=== PATIENT | female | born 1965 | race Caucasian/White ===

== ENCOUNTER → 2020-03-19 10:56 | Outpatient (BNVA) | payer BC, SELFPAY | PROVIDERS: Visit Provider Surgery | DX: Z76.89 Persons encountering health services in other specified circumstances (principal) ==

== ENCOUNTER 2020-04-07 07:02 | Outpatient (REF) | payer BC, SELFPAY ==
[2020-04-02 17:42] VITALS: BMI 28.3
--- NOTE | 2020-04-04 08:39 | HO.ANESPROP2 ---
Documented by User: Karoline Licea 04/04/20 08:40 HPI - Anesthesia Eval Consult details Narrative: 55yo F for L breast needle localization PMFSH Past Medical History Medical History Anxiety Eczema Migraine Obesity Family History Family History Father No problems noted. Mother No problems noted. Brother No problems noted. Brother No problems noted. Brother No problems noted. Daughter No problems noted. Daughter No problems noted. Surgical History Surgical History H/O elbow surgery H/O shoulder surgery Hx laparoscopic cholecystectomy (2003) Hx of section (2003) Hx of laparoscopic gastric banding Hx of umbilical hernia repair (2005) S/P laparoscopic sleeve gastrectomy () S/P TORIBIO (total abdominal hysterectomy) Social History Social History Alcohol intake: current Alcohol intake frequency: holidays/special occasions only Smoking Status: Never smoker Second Hand Smoke Exposure: No Use of substances other than those prescribed or required for medical reasons: No Advance Directives: No Advance Directives Information Provided: No Advance Directives on File: No Recently lost weight without trying: No Meds Allergies Allergy/AdvReac Type Severity Reaction Status Date / Time Iodinated Contrast Media Allergy Severe DIFF Unverified 02/28/20 15:03 [IV CONTRAST] BREATHING/HIVES Contrast Allergy PreMed Pack Allergy Mild hives Uncoded 02/01/20 00:00 STATINS AdvReac Unknown myalgias Uncoded 02/01/20 00:00 Home Medications Medication Instructions Recorded Confirmed Type clobetasol 0.05 % scalp solution 1 applic TOPICAL BEDTIME 03/13/20 04/02/20 History pantoprazole 40 mg tablet,delayed 40 mg PO DAILY 03/13/20 04/02/20 History release Exam Exam Date and Time: April 04, 2020 0839 Height,Weight and Vital Signs: Height 5 ft 3 in Weight 72.575 kg Pertinent Lab Results Pertinent Lab Results: Laboratory Tests 02/06/20 02/06/20 04:09 04:09 WBC 11.5 H Hgb 12.4 Hct 37.4 Plt Count 261 Sodium 137 Potassium 4.9 Chloride 105 BUN 10 Creatinine 0.77 Assessment and Plan Assessment Anesthesia Assessment: Chart Reviewed Documented by User: Nathalia Bello 04/07/20 09:32 PMFSH Past Medical History Medical History Anxiety Eczema Migraine Obesity Family History Family History Father No problems noted. Mother No problems noted. Brother No problems noted. Brother No problems noted. Brother No problems noted. Daughter No problems noted. Daughter No problems noted. Surgical History Surgical History H/O elbow surgery H/O shoulder surgery Hx laparoscopic cholecystectomy (2003) Hx of section (2003) Hx of laparoscopic gastric banding Hx of umbilical hernia repair (2005) S/P laparoscopic sleeve gastrectomy (~2019) S/P TORIBIO (total abdominal hysterectomy) Social History Social History Alcohol intake: current Alcohol intake frequency: holidays/special occasions only Smoking Status: Never smoker Second Hand Smoke Exposure: No Use of substances other than those prescribed or required for medical reasons: No Advance Directives: No Advance Directives Information Provided: No Advance Directives on File: No Recently lost weight without trying: No Meds Allergies Allergy/AdvReac Type Severity Reaction Status Date / Time Iodinated Contrast Media Allergy Severe DIFF Unverified 02/28/20 15:03 [IV CONTRAST] BREATHING/HIVES Contrast Allergy PreMed Pack Allergy Mild hives Uncoded 02/01/20 00:00 STATINS AdvReac Unknown myalgias Uncoded 02/01/20 00:00 Home Medications Medication Instructions Recorded Confirmed Type clobetasol 0.05 % scalp solution 1 applic TOPICAL BEDTIME 03/13/20 04/02/20 History pantoprazole 40 mg tablet,delayed 40 mg PO DAILY 03/13/20 04/02/20 History release Exam Airway Mallampati Class: II TM Dist: >3cm Neck ROM: Full Assessment and Plan Assessment Anesthesia Assessment: Anesthesia Plan Discussed and Chart Reviewed Final Anesthetic Review NPO: Yes ASA Class: II Final Preanesthetic Review: No Changes in Pt Med Stat, Meds/Allgs Chart Reviewed, Consent Obtained/Reviewed and Anes Risks/Benef Reviewed Patient Risk: Low Procedure Risk: Low Assessment/Block/Sedation in SS: Assess/Block/Sedation-SS Anesthetic Plan Anesthetic Plan: MAC: Disposition: Standard PACU
[2020-04-07 07:34] VITALS: BP 109/65; PULSE 58; RESP 18; TEMP 36.7; O2SAT 96
--- NOTE | 2020-04-07 07:50 | MM_ITS ---
EXAMINATION: MM MAMMOGRAM GUIDED NEEDLE LOCALIZATION BREAST, LEFT MM NEEDLE LOCALIZATION SPECIMEN FROM THE LEFT BREAST CLINICAL INFORMATION: Intraductal papilloma. Fragments with regions of small radial scar. COMPARISON: March 12, 2020 and studies dating back to October 23, 2010 TECHNIQUE NEEDLE LOC: Proper informed consent is obtained from the patient after discussion of the procedure, potential risks and complications, and alternatives including declining the procedure today. Patient was given an opportunity for questions. The patient appeared to understand. The patient consented to the procedure and signed the consent form. GUIDANCE: Digital mammography. APPROACH: Medial. TARGET: Clip. ANESTHESIA: lidocaine 1%: 3 mL. LOCALIZATION MARKER: [place] [employer]. 5 cm in length The skin is prepped and local anesthesia administered. The needle is positioned and position assessed with mammography. The wire is hooked into position. [place] needle protector placed. The patient tolerated the procedure well and had no immediate complication. TECHNIQUE SPECIMEN RADIOGRAPH: Imaging of the excised specimen is performed using digital mammography in 1 view. FINDINGS SPECIMEN RADIOGRAPH: The specimen shows the needle and hookwire are delivered intact. Clip is within the sample.. Results were called to Dr. Dallin Marlow in the operating room at the time of imaging. MM/MM needle loc RT IMPRESSION: 1. Status post left breast needle localization with wire hooked into position. 2. Post operative specimen radiograph obtained.
--- NOTE | 2020-04-07 08:56 | MHC.SHP ---
Pre-Procedural Eval Section A The patient is an INPATIENT: No Changes since office visit: Yes Patient answered all questions; No Cold of Flu in the past 2 weeks, No New Medical Problems and No Changes in Medication The History & Physical has been completed within 30 days and I have reviewed it.: Yes Section B Chief Complaint: LT BR NEEDLE LOCALIZATION Allergies: Allergies Allergy/AdvReac Type Severity Reaction Status Date / Time Iodinated Contrast Media Allergy Severe DIFF Unverified 02/28/20 15:03 [IV CONTRAST] BREATHING/HIVES Contrast Allergy PreMed Pack Allergy Mild hives Uncoded 02/01/20 00:00 STATINS AdvReac Unknown myalgias Uncoded 02/01/20 00:00 Plan Diagnosis/Plan: Unchanged Patient has been examined and remains a candidate for the planned procedure
--- NOTE | 2020-04-07 09:32 | HO.ANESPROP2 ---
[facility] Past Medical History Medical History Anxiety Eczema Migraine Obesity Family History Family History Father No problems noted. Mother No problems noted. Brother No problems noted. Brother No problems noted. Brother No problems noted. Daughter No problems noted. Daughter No problems noted. Surgical History Surgical History H/O elbow surgery H/O shoulder surgery Hx laparoscopic cholecystectomy (2003) Hx of section (2003) Hx of laparoscopic gastric banding Hx of umbilical hernia repair (2005) S/P laparoscopic sleeve gastrectomy () S/P TORIBIO (total abdominal hysterectomy) Social History Social History Alcohol intake: current Alcohol intake frequency: holidays/special occasions only Smoking Status: Never smoker Second Hand Smoke Exposure: No Use of substances other than those prescribed or required for medical reasons: No Advance Directives: No Advance Directives Information Provided: No Advance Directives on File: No Recently lost weight without trying: No Meds Allergies Allergy/AdvReac Type Severity Reaction Status Date / Time Iodinated Contrast Media Allergy Severe DIFF Unverified 02/28/20 15:03 [IV CONTRAST] BREATHING/HIVES Contrast Allergy PreMed Pack Allergy Mild hives Uncoded 02/01/20 00:00 STATINS AdvReac Unknown myalgias Uncoded 02/01/20 00:00 Home Medications Medication Instructions Recorded Confirmed Type clobetasol 0.05 % scalp solution 1 applic TOPICAL BEDTIME 03/13/20 04/02/20 History pantoprazole 40 mg tablet,delayed 40 mg PO DAILY 03/13/20 04/02/20 History release Exam Exam Date and Time: April 07, 2020 0932 Height,Weight and Vital Signs: Height 5 ft 3 in Weight 72.575 kg Last Vital Signs Temp 98.1 F 04/07/20 07:34 Pulse 58 04/07/20 07:34 Resp 18 04/07/20 07:34 BP 109/65 04/07/20 07:34 Pulse Ox 96 04/07/20 07:34 Assessment and Plan Assessment Anesthesia Assessment: Anesthesia Plan Discussed and Chart Reviewed Final Anesthetic Review NPO: Yes ASA Class: II Final Preanesthetic Review: No Changes in Pt Med Stat, Meds/Allgs Chart Reviewed, Consent Obtained/Reviewed and Anes Risks/Benef Reviewed Patient Risk: Low Procedure Risk: Low Assessment/Block/Sedation in SS: Assess/Block/Sedation-SS Anesthetic Plan Anesthetic Plan: MAC: Disposition: Standard PACU
--- NOTE | 2020-04-07 10:15 | P.BOP_ITS ---
Brief Operative Note Date of procedure: 04/07/20 Pre-op diagnosis: Intraductal papilloma, ADH left breast Post-op diagnosis: same Procedure: Left breast lumpectomy with needle localization Implants: None Surgeon: Dallin Marlow MD Anesthesia: MAC Manager Of Compliance: Jodie Bone Estimated blood loss (mL): 10 Pathology: other (Left breast lumpectomy) Condition: stable Disposition: PACU
[2020-04-07 10:20] VITALS: BP 105/57; PULSE 48; RESP 18; TEMP 36.6; O2SAT 98
[2020-04-07 10:35] VITALS: BP 109/59; PULSE 49; RESP 18; O2SAT 100
[2020-04-07 10:45] VITALS: BP 116/56; PULSE 46; RESP 16; O2SAT 100
--- NOTE | 2020-04-08 09:29 | P.OP_ITS ---
Operative Note Operative Note Narrative: Date of procedure: 04/07/20 Pre-op diagnosis: Intraductal papilloma, ADH left breast Post-op diagnosis: same Procedure: Left breast lumpectomy with needle localization Indication: the patient is a 55-year-old female presenting with a recent mammogram which revealed an abnormal density of the left breast. Recent radiologic guided core biopsy revealed it area of intraductal papilloma and ADH. She presents today for wider excision to assure complete removal. Findings: Specimen x-ray confirmed the localizing needle and marking clip within the specimen. Immediate gross pathology confirmed biopsy cavity within the specimen as well. Operative details: The patient was brought to the OR placed in a supine position. After administering light sedation the patient's left breast was prepped with ChloraPrep and draped in a sterile fashion. A surgical time-out w as called and consent confirmed. The patient received preoperative antibiotics. Local anesthesia consisting of a combination of 1% lidocaine with 0.75% Sensorcaine with epinephrine was then infiltrated around the localizing needle in the upper inner quadrant. A radial incision was made to include the insertion site of the localizing needle. The incision was carried out through subcutaneous tissue. Superior and inferior skin flaps were then created with electrocautery. A core of tissue surrounding the localizing needle was then obtained. Excision was continued down to the pectoralis fascia period lesion was shaved off the pectoralis fascia. Specimen was sent to Radiology for Re ray, and then to pathology for gross examination. After confirming an adequate specimen the wounds were irrigated with saline solution and suctioned dry. Wounds were again checked for hemostasis. Deep breast tissue was closed using interrupted 3 0 Polysorb sutures. Dermis was reapproximated using interrupted 3 0 Polysorb sutures. Skin was then closed using a running subcuticular 4 0 Polysorb suture. Steri-Strips 2 x 2 gauze and Tegaderm were then applied. The patient tolerated the procedure well. Sponge, instrument, and needle counts reported as correct. She was transferred to PACU in stable condition. Implants: None Surgeon: Dallin Marlow MD Anesthesia: MAC Deoiling Machine Operator: Jodie Bone Estimated blood loss (mL): 10 Pathology: other (Left breast lumpectomy) Condition: stable Disposition: PACU
== END 2020-04-07 11:25 | disposition home or self-care (01) ==
LOC: HO.SSS 07:02
PROVIDERS: Visit Provider Surgery
PROC: (CPT 19301; principal; 2020-04-07 09:10)
DX: N60.92 Unspecified benign mammary dysplasia of left breast (principal); N60.42 Mammary duct ectasia of left breast; N60.12 Diffuse cystic mastopathy of left breast; Z91.041 Radiographic dye allergy status; Z91.09 Other allergy status, other than to drugs and biological substances
CPT/HCPCS: 19301; 19281; 88307; 88329; A4648; J0690; J2250; J2405; J3010

== ENCOUNTER 2020-04-09 10:25 | Outpatient (REF) | payer BC, SELFPAY ==
--- NOTE | 2020-04-09 10:44 | XR_ITS ---
EXAMINATION: XR LEFT SHOULDER. CLINICAL INFORMATION: Pain left shoulder COMPARISON: None TECHNIQUE: 3 views of the left shoulder. FINDINGS: There is loss of glenohumeral joint space and periarticular spurring. No visible fracture or dislocation seen. There is soft tissue calcification along the insertion site of the rotator cuff suggestive of calcific tendinitis. There are 3 radiopaque small density seen in the left greater tuberosity region question bone islands. XR/XR shoulder LT min 2V IMPRESSION: Likely left rotator cuff tendinitis.
== END 2020-04-09 10:26 | disposition home or self-care (01) ==
LOC: HO.XRAY 10:25
PROVIDERS: Visit Provider Orthopaedic Surgery
DX: M75.42 Impingement syndrome of left shoulder (principal)
CPT/HCPCS: 20610; 73030; J1040

== ENCOUNTER → 2020-04-11 08:15 | Outpatient (BNVA) | payer BC, SELFPAY | PROVIDERS: Visit Provider Surgery | DX: Z76.89 Persons encountering health services in other specified circumstances (principal) ==

== ENCOUNTER → 2020-04-15 11:33 | Outpatient (BNVA) | payer SELFPAY | PROVIDERS: Visit Provider Physician Assistant | DX: Z76.89 Persons encountering health services in other specified circumstances (principal) ==

== ENCOUNTER → 2020-04-22 11:51 | Outpatient (BNVA) | payer SELFPAY | PROVIDERS: Visit Provider Surgery | DX: D24.2 Benign neoplasm of left breast (principal); Z98.890 Other specified postprocedural states | CPT/HCPCS: 99212 ==

== ENCOUNTER → 2020-05-14 09:36 | Outpatient (BNVA) | payer SELFPAY | PROVIDERS: Visit Provider Surgery | DX: Z76.89 Persons encountering health services in other specified circumstances (principal) ==

== ENCOUNTER → 2020-06-10 08:33 | Outpatient (BNVA) | payer SELFPAY | PROVIDERS: Visit Provider Physician Assistant | DX: Z76.89 Persons encountering health services in other specified circumstances (principal) ==

== ENCOUNTER 2020-06-11 10:25 | Outpatient (REF) | payer BC, SELFPAY ==
[2020-06-11 11:59] LABS: MANUAL DIFF FLAG NO
[2020-06-11 12:02] LABS: Basophils Percent Auto 0.5 % (0-2); Eosinophils Absolute Auto 0.1 X10*3/uL (0.0-0.4); Eosinophils Percent Auto 1.2 % (0-4); Hemoglobin 13.5 g/dl (12.0-16.0); Imm Gran Abs Auto 0.01 X10*3/uL (0.00-0.03); Imm Gran Pct Auto 0.2 % (0.0-0.4); Lymphocytes Absolute Auto 2.5 X10*3/uL (1.2-4.9); Lymphocytes Percent Auto 41.2 % (20-40); Mean Corpuscular HGB Conc 32.9 g/dl (31.0-35.0); Mean Corpuscular Hemoglobin 30.6 pg (27.0-33.0); Mean Platelet Volume 10.6 fL (9.4-12.3); Monocytes Absolute Auto 0.4 X10*3/uL (0.1-1.2); Monocytes Percent Auto 5.8 % (2-11); Neutrophils Absolute Auto 3.1 X10*3/uL (2.0-8.3); Neutrophils Percent Auto 51.1 % (45-73); Platelet Count 277 X10*3/uL (160-400); Red Blood Count 4.41 X10*6/uL (4.20-5.50); Red Cell Distribution Width 14.6 % (11.0-16.0); White Blood Count 6.1 X10*3/uL (4.8-10.8)
[2020-06-11 12:36] LABS: Alanine Aminotransferase 30 U/L (0-31); Albumin Level 4.4 g/dL (3.5-5.0); Alkaline Phosphatase 70 U/L (39-117); Anion Gap 12 (12-20); Aspartate Amino Transferase 31 U/L (5-31); Bilirubin Total 0.7 mg/dL (0.0-1.0); Blood Urea Nitrogen 16 mg/dL (9-16); C Reactive Protein 0.28 mg/dL (< or = 0.50); Calcium 9.6 mg/dL (8.4-10.2); Carbon Dioxide 28 mmol/L (22-29); Chloride 105 mmol/L (96-108); Cholesterol 211 mg/dL; Estimated Glomerular Filt Rate > 60; Glucose Fasting 93 mg/dL (60-99); HDL Cholesterol 59 mg/dL; Iron 109 mcg/dL (30-160); LDL Cholesterol Calculated 138 mg/dl; Percent Iron Saturation 33 % (15-50); Potassium 4.1 mmol/l (3.3-5.1); Sodium 141 mmol/L (135-145); Total Iron Binding Capacity 333 mcg/dL (228-428); Triglycerides 71 mg/dL; Unsaturated Iron Binding 224 ug/dL
[2020-06-11 12:47] LABS: Estimated Average Glucose 105 mg/dL; Hemoglobin A1c % 5.3 %
[2020-06-11 13:02] LABS: Ferritin 41 ng/mL (10-250); TSH reflex Free T4 0.74 mIU/mL (0.32-4.0); Vitamin D 25-OH Total 66.6 ng/mL (>30)
[2020-06-11 13:41] LABS: Folate 18.1 ng/mL (> or = 4.0); Vitamin B12 832 pg/mL (200-900)
[2020-06-12 12:52] LABS: Insulin Level Total 3.3 uIU/mL
[2020-06-12 17:57] LABS: Calcium (PTHI) 9.6 mg/dL (8.6-10.4); PTHI 61 pg/mL (14-64)
[2020-06-15 11:12] LABS: Vitamin B1 23 nmol/L (8-30)
[2020-06-16 09:27] LABS: Zinc 47 mcg/dL (60-130)
[2020-06-18 13:07] LABS: Vitamin A 37 mcg/dL (38-98)
== END 2020-06-11 10:26 | disposition home or self-care (01) ==
LOC: HO.LAB 10:25
PROVIDERS: Visit Provider Physician Assistant
DX: E66.3 Overweight (principal); K91.2 Postsurgical malabsorption, not elsewhere classified; Z98.84 Bariatric surgery status; Z90.3 Acquired absence of stomach [part of]
CPT/HCPCS: 36415; 80053; 80061; 82306; 82607; 82728; 82746; 83036; 83525; 83540; 83970; 84425; 84443; 84590; 84630; 85025; 86140

== ENCOUNTER → 2020-06-17 09:13 | Outpatient (BNVA) | payer BC, SELFPAY | PROVIDERS: Visit Provider Dietitian, Registered | DX: Z76.89 Persons encountering health services in other specified circumstances (principal) ==

== ENCOUNTER → 2020-07-15 11:24 | Outpatient (BNVA) | payer BC, SELFPAY | PROVIDERS: Visit Provider Dietitian, Registered ==

== ENCOUNTER → 2020-09-23 08:23 | Outpatient (BNVA) | payer BC, SELFPAY | PROVIDERS: PCP Internal Medicine; Visit Provider Dietitian, Registered ==

== ENCOUNTER → 2020-11-25 14:52 | Outpatient (BNVA) | payer BC, SELFPAY | PROVIDERS: PCP Internal Medicine; Referring Provider Internal Medicine; Visit Provider Physician Assistant ==

== ENCOUNTER 2020-12-11 08:18 | Outpatient (REF) | payer BC, SELFPAY ==
[2020-12-11 10:08] LABS: MANUAL DIFF FLAG NO
[2020-12-11 10:19] LABS: Basophils Percent Auto 0.6 % (0-2); Eosinophils Absolute Auto 0.1 X10*3/uL (0.0-0.4); Eosinophils Percent Auto 1.3 % (0-4); Hematocrit 38.9 % (37-47); Hemoglobin 12.8 g/dl (12.0-16.0); Imm Gran Abs Auto 0.01 X10*3/uL (0.00-0.03); Imm Gran Pct Auto 0.2 % (0.0-0.4); Lymphocytes Absolute Auto 2.3 X10*3/uL (1.2-4.9); Lymphocytes Percent Auto 44.1 % (20-40); Mean Corpuscular HGB Conc 32.9 g/dl (31.0-35.0); Mean Corpuscular Hemoglobin 30.5 pg (27.0-33.0); Mean Corpuscular Volume 92.6 fL (80-98); Mean Platelet Volume 10.2 fL (9.4-12.3); Monocytes Absolute Auto 0.3 X10*3/uL (0.1-1.2); Monocytes Percent Auto 6.1 % (2-11); Neutrophils Absolute Auto 2.5 X10*3/uL (2.0-8.3); Neutrophils Percent Auto 47.7 % (45-73); Platelet Count 253 X10*3/uL (160-400); Red Cell Distribution Width 13.2 % (11.0-16.0); White Blood Count 5.2 X10*3/uL (4.8-10.8)
[2020-12-11 10:54] LABS: Alanine Aminotransferase 29 U/L (0-31); Alkaline Phosphatase 73 U/L (39-117); Anion Gap 9 (12-20); Aspartate Amino Transferase 28 U/L (5-31); Bilirubin Total 0.7 mg/dL (0.0-1.0); Blood Urea Nitrogen 17 mg/dL (9-16); C Reactive Protein 0.09 mg/dL (< or = 0.50); Calcium 9.6 mg/dL (8.4-10.2); Carbon Dioxide 31 mmol/L (22-29); Chloride 106 mmol/L (96-108); Cholesterol 181 mg/dL; Estimated Glomerular Filt Rate > 60; Glucose Fasting 94 mg/dL (60-99); HDL Cholesterol 59 mg/dL; Iron 97 mcg/dL (30-160); LDL Cholesterol Calculated 111 mg/dl; Percent Iron Saturation 33 % (15-50); Potassium 4.7 mmol/L (3.3-5.1); Sodium 141 mmol/L (135-145); Total Iron Binding Capacity 295 mcg/dL (228-428); Total Protein 6.4 g/dL (6.5-8.0); Triglycerides 55 mg/dL; Unsaturated Iron Binding 198 ug/dL
[2020-12-11 10:56] LABS: Ferritin 41 ng/mL (10-250); TSH reflex Free T4 0.58 uIU/mL (0.32-4.0); Vitamin D 25-OH Total 60.2 ng/mL (>30)
[2020-12-11 11:02] LABS: Estimated Average Glucose 105 mg/dL; Hemoglobin A1c % 5.3 %
[2020-12-11 11:27] LABS: Folate > 20.0 ng/mL (> or = 4.0); Vitamin B12 1020 pg/mL (200-900)
[2020-12-12 09:07] LABS: Insulin Level Total 2.8 uIU/mL
[2020-12-12 13:36] LABS: Calcium (PTHI) 9.5 mg/dL (8.6-10.4); PTHI 35 pg/mL (14-64)
[2020-12-16 15:11] LABS: Zinc 70 mcg/dL (60-130)
[2020-12-16 15:37] LABS: Vitamin B1 23 nmol/L (8-30)
[2020-12-17 11:47] LABS: Vitamin A 43 mcg/dL (38-98)
== END 2020-12-11 08:19 | disposition home or self-care (01) ==
LOC: HO.LAB 08:18
PROVIDERS: PCP Internal Medicine; Visit Provider Physician Assistant
DX: E66.01 Morbid (severe) obesity due to excess calories (principal); Z98.84 Bariatric surgery status
CPT/HCPCS: 36415; 80053; 80061; 82306; 82607; 82728; 82746; 83036; 83525; 83540; 83970; 84425; 84443; 84590; 84630; 85025; 86140

== ENCOUNTER 2021-01-19 08:33 | Outpatient (REF) | payer BC, SELFPAY ==
--- NOTE | ~2021-01-19 | MM_ITS ---
EXAMINATION: MM SCREENING DIGITAL BREAST TOMOSYNTHESIS, BILATERAL CLINICAL INFORMATION: Screening. Asymptomatic. Status post excision intraductal papilloma anterior left breast 04/07/2020. The lifetime risk of breast cancer based on the Tyrer-Cuzick Model is 9%. COMPARISON: Mammography: Localization 04/07/2020, stereotactic biopsy 03/12/2020, mammography 02/25/2020, 01/14/2020, 12/21/2016. TECHNIQUE: Digital breast tomosynthesis is performed in both the craniocaudal and mediolateral oblique views along with computer-aided detection (CAD). Synthesized 2D images are generated from the tomosynthesis. Left views obtained with scar marker. FINDINGS: There are scattered areas of fibroglandular density (ACR BI-RADS breast composition Category b). There is minor scarring anterior medial left breast consistent with the excisional biopsy. Neither breast shows significant mass or architectural abnormality or abnormal calcifications. The axilla are unremarkable. No significant changes. MM/MM tomosynthesis screening BI IMPRESSION: No mammographic evidence of malignancy. ASSESSMENT: BI-RADS 2: Benign RECOMMENDATION: Routine annual mammography screening. This patient's information was entered into a reminder system with a target due date for their next mammogram.
== END 2021-01-19 08:34 | disposition home or self-care (01) ==
LOC: HO.MAMMO 08:33
PROVIDERS: PCP Internal Medicine; Visit Provider Internal Medicine
DX: Z12.31 Encounter for screening mammogram for malignant neoplasm of breast (principal)
CPT/HCPCS: 77063; 77067

== ENCOUNTER → 2021-01-20 10:05 | Outpatient (BNVA) | payer BC, SELFPAY | PROVIDERS: PCP Internal Medicine; Referring Provider Internal Medicine; Visit Provider Physician Assistant ==

== ENCOUNTER → 2021-04-28 15:00 | Outpatient (BNVA) | payer BC, SELFPAY | PROVIDERS: PCP Internal Medicine; Referring Provider Internal Medicine; Visit Provider Physician Assistant Surgical | DX: Z98.84 Bariatric surgery status (principal); M79.3 Panniculitis, unspecified ==

== ENCOUNTER → 2021-05-28 14:46 | Outpatient (BNVA) | payer BC, SELFPAY | PROVIDERS: PCP Internal Medicine; Visit Provider Surgery Vascular Surgery ==

== ENCOUNTER → 2021-06-08 07:38 | Outpatient (BNVA) | payer BC, SELFPAY | PROVIDERS: PCP Internal Medicine; Visit Provider Surgery ==

== ENCOUNTER 2021-06-15 07:50 | Outpatient (REF) | payer BC, SELFPAY ==
[2021-06-15 08:51] LABS: COVID-19 Test Positive (Negative); IDNOW Serial# 55D5AD1C
== END 2021-06-15 07:51 | disposition home or self-care (01) ==
LOC: HO.LAB 07:50
PROVIDERS: Visit Provider Internal Medicine
DX: Z20.822 Contact with and (suspected) exposure to COVID-19 (principal)
CPT/HCPCS: 36415; 87635; C9803

== ENCOUNTER 2021-06-15 08:52 | Outpatient (REF) | payer BC, SELFPAY ==
[2021-06-15 09:27] LABS: MANUAL DIFF FLAG NO
[2021-06-15 10:05] LABS: Basophils Percent Auto 0.5 % (0-2); Eosinophils Absolute Auto 0.1 X10*3/uL (0.0-0.4); Eosinophils Percent Auto 0.9 % (0-4); Hematocrit 42.9 % (37.0-47.0); Hemoglobin 13.9 g/dl (12.0-16.0); Imm Gran Abs Auto 0.02 X10*3/uL (0.00-0.03); Imm Gran Pct Auto 0.4 % (0.0-0.4); Lymphocytes Absolute Auto 1.6 X10*3/uL (1.2-4.9); Lymphocytes Percent Auto 28.8 % (20-40); Mean Corpuscular HGB Conc 32.4 g/dl (31.0-35.0); Mean Corpuscular Volume 92.5 fL (80.0-98.0); Mean Platelet Volume 9.9 fL (9.4-12.3); Monocytes Absolute Auto 0.6 X10*3/uL (0.1-1.2); Neutrophils Absolute Auto 3.3 x10*3/uL (2.0-8.3); Neutrophils Percent Auto 59.4 % (45-73); Platelet Count 254 X10*3/uL (160-400); Red Blood Count 4.64 X10*6/uL (4.20-5.50); Red Cell Distribution Width 12.6 % (11.0-16.0); White Blood Count 5.5 X10*3/uL (4.8-10.8)
[2021-06-15 10:09] LABS: INTERNATIONAL NORM RATIO 1.1 (0.9-1.1); Prothrombin Time 12.8 SEC (9.9-13.0)
[2021-06-15 10:11] LABS: Partial Thromboplastin Time 34.2 SEC (24.1-38.0)
[2021-06-15 10:38] LABS: Estimated Average Glucose 108 mg/dL; Hemoglobin A1c % 5.4 %
[2021-06-15 10:47] LABS: Alanine Aminotransferase 30 U/L (0-31); Alkaline Phosphatase 91 U/L (39-117); Anion Gap 11 (12-20); Aspartate Amino Transferase 28 U/L (5-31); Bilirubin Total 0.4 mg/dL (0.0-1.0); Blood Urea Nitrogen 13 mg/dL (9-16); C Reactive Protein 0.47 mg/dL (< or = 0.50); Calcium 9.6 mg/dL (8.4-10.2); Carbon Dioxide 31 mmol/L (22-29); Chloride 105 mmol/L (96-108); Cholesterol 183 mg/dL; Estimated Glomerular Filt Rate > 60; Ferritin 56 ng/mL (10-250); Glucose Random 98 mg/dL (60-115); HDL Cholesterol 65 mg/dL; Iron 44 mcg/dL (30-160); LDL Cholesterol Calculated 105 mg/dl; Percent Iron Saturation 13 % (15-50); Potassium 4.8 mmol/L (3.3-5.1); Sodium 142 mmol/L (135-145); TSH reflex Free T4 0.97 uIU/mL (0.32-4.0); Total Iron Binding Capacity 335 mcg/dL (228-428); Total Protein 6.9 g/dL (6.5-8.0); Triglycerides 66 mg/dL; Unsaturated Iron Binding 291 ug/dL; Vitamin D 25-OH Total 60.5 ng/mL (>30)
[2021-06-15 11:00] LABS: Vitamin B12 1474 pg/mL (200-900)
[2021-06-16 12:01] LABS: Calcium (PTHI) 9.5 mg/dL (8.6-10.4); PTHI 48 pg/mL (14-64)
[2021-06-18 06:27] LABS: Zinc 82 mcg/dL (60-130)
[2021-06-18 20:55] LABS: Vitamin A 40 mcg/dL (38-98)
[2021-06-20 09:16] LABS: Vitamin B1 14 nmol/L (8-30)
== END 2021-06-15 08:53 | disposition home or self-care (01) ==
LOC: HO.LAB 08:52
PROVIDERS: PCP Internal Medicine; Visit Provider Surgery
DX: K91.2 Postsurgical malabsorption, not elsewhere classified (principal); Z90.3 Acquired absence of stomach [part of]
CPT/HCPCS: 36415; 80053; 80061; 82306; 82607; 82728; 83036; 83540; 83970; 84425; 84443; 84590; 84630; 85025; 85610; 85730; 86140; 86850; 86900; 86901

== ENCOUNTER 2021-07-02 05:59 | Day surgery (SDC) | payer BC, SELFPAY ==
[2021-06-18 10:45] VITALS: BMI 24.3
[2021-06-26 15:29] LABS: COVID-19 Test Negative (Negative)
--- NOTE | 2021-06-27 21:40 | P.HPSUR_ITS ---
Pre-Procedural Eval Section A Date of Service: 06/27/21 The patient is an INPATIENT: No The History & Physical has been completed within 30 days and I have reviewed it.: Yes Section B Chief Complaint: excessive and redundant skin Relevant Family History (Specify if Yes): Yes Relevant Social History: None Present Medications: None Medical History: No relevant PMH History of Previous Operations: Relevant previous surgery/procedure and date(s) (Sleeve gastrectomy) Allergies: Allergies Allergy/AdvReac Type Severity Reaction Status Date / Time Iodinated Contrast Media Allergy Severe DIFF Verified 06/18/21 10:51 [IV CONTRAST] BREATHING/HIVES Contrast Allergy PreMed Pack Allergy Mild hives Uncoded 06/18/21 10:51 STATINS AdvReac Severe myalgias Uncoded 06/18/21 10:51 Review of Systems Sugical H&P ROS: Negative: Constitution, Cardiovascular, Respiratory, Neurological, Psychiatric, Hem-Onc, Allergic/Immunologic, Gastrointestinal, Genitourinary, Musculoskeletal, Integumentary, Endocrine and Eyes/Ears/ Nose/Throat Exam Surgical H&P Exam: Normal: HEENT, Normal: Heart, Normal: Lungs, Normal: Extremities, Normal: Abdomen, Normal: Skin and Normal: Neurological Plan Diagnosis/Plan: Unchanged I have reviewed the history and physical and performed a pertinent physical examination on my patient. No changes have occurred unless specified.
--- NOTE | 2021-07-01 10:18 | HO.ANESPROP2 ---
Documented by User: Karoline Licea NP 07/01/21 10:28 HPI - Anesthesia Eval Consult details Narrative: 56yo F for Panniculectomy, umbilical hernia repair without mesh s/p sleeve 01/2020 PMFSH Active Problems Active Problems: All Active Problems (Updated 06/26/21 @ 11:16 by BAYRON Haines) Pre-op testing (Acute) Intraductal papilloma (Acute) Rotator cuff impingement syndrome of left shoulder (Acute) COVID-19 virus infection (Acute) Excess skin (Acute) Annual physical exam (Acute) Colon cancer screening (Acute) Varicose veins of right lower extremity (Acute) Varicose veins of right lower extremity with inflammation (Acute) Postgastrectomy malabsorption (Acute) Panniculitis (Acute) Bariatric surgery status (Acute) Anxiety (Acute) S/P laparoscopic sleeve gastrectomy (Acute ~2020) Intestinal malabsorption following gastrectomy (Acute) Past Medical History Medical History Adopted Anxiety Breast asymmetry following reconstructive surgery Eczema Intestinal malabsorption following gastrectomy Migraine Panniculitis Rosacea Family History Family History Father No problems noted. Mother No problems noted. Brother No problems noted. Brother No problems noted. Brother No problems noted. Daughter No problems noted. Daughter No problems noted. Surgical History Surgical History Bariatric surgery status H/O elbow surgery H/O shoulder surgery Hx laparoscopic cholecystectomy (2003) Hx of section (2003) Hx of knee surgery Hx of laparoscopic gastric banding Hx of umbilical hernia repair (2005) S/P laparoscopic sleeve gastrectomy (~2019) S/P TORIBIO (total abdominal hysterectomy) Social History Social History Are you a primary care information associate to a significant other at home: Yes (children 17+19 yrs old) Do you presently have visiting nurse or other home services: No Alcohol intake: current Alcohol intake frequency: holidays/special occasions only Patient Tobacco Use Status: Never used Tobacco Second Hand Smoke Exposure: No Have you been hit, kicked, punched, or otherwise hurt by someone within the past year? If so, by whom?: No Are you DNR?: No Advance Directives: No Advance Directives Information Provided: Yes Advance Directives on File: No Recently lost weight without trying: No Patient : No Meds Allergies Allergy/AdvReac Type Severity Reaction Status Date / Time Iodinated Contrast Media Allergy Severe DIFF Verified 07/02/21 06:17 [IV CONTRAST] BREATHING/HIVES Contrast Allergy PreMed Pack Allergy Mild hives Uncoded 06/18/21 10:51 STATINS AdvReac Severe myalgias Uncoded 06/18/21 10:51 Home Medications Medication Instructions Recorded Confirmed Last Taken Type doxycycline hyclate 50 mg capsule 20 mg PO BID cap 09/03/20 06/18/21 Unknown History multivitamin 1 tab PO DAILY 09/03/20 06/18/21 Unknown History esomeprazole magnesium 20 mg 20 mg PO DAILY 05/28/21 06/08/21 Unknown History capsule,delayed release calcium carbonate 600 mg-vitamin 1 tab PO DAILY 06/18/21 06/18/21 Unknown History D3 10 mcg (400 unit) tablet (Calcium 600 + D(3)) sulfacetamide sodium (acne) 10 % TOPICAL 06/18/21 06/18/21 Unknown History lotion (suspension) Exam Exam Date and Time: July 01, 2021 1018 Height,Weight and Vital Signs: Height 5 ft 3 in Weight 62.142 kg Pertinent Lab Results Pertinent Lab Results: Laboratory Tests 06/26/21 15:00 COVID-19 (FAM) Negative COVID-19 Clin Com See Note Laboratory Tests 06/15/21 06/15/21 09:20 09:20 WBC 5.5 RBC 4.64 Hgb 13.9 Hct 42.9 Plt Count 254 Sodium 142 Potassium 4.8 Chloride 105 Carbon Dioxide 31 H BUN 13 Creatinine 0.81 Laboratory Tests 06/15/21 09:20 Blood Type A Negative Antibody Screen NEGATIVE Assessment and Plan Assessment Anesthesia Assessment: Chart Reviewed Documented by User: Lalitha Comer MD 07/02/21 07:33 [facility] Past Medical History Medical History Adopted Anxiety Breast asymmetry following reconstructive surgery Eczema Intestinal malabsorption following gastrectomy Migraine Panniculitis Rosacea Family History Family History Father No problems noted. Mother No problems noted. Brother No problems noted. Brother No problems noted. Brother No problems noted. Daughter No problems noted. Daughter No problems noted. Surgical History Surgical History Bariatric surgery status H/O elbow surgery H/O shoulder surgery Hx laparoscopic cholecystectomy (2003) Hx of section (2003) Hx of knee surgery Hx of laparoscopic gastric banding Hx of umbilical hernia repair (2005) S/P laparoscopic sleeve gastrectomy (~2019) S/P TORIBIO (total abdominal hysterectomy) History of Problems with Anesthesia: No Social History Social History Are you a primary care information associate to a significant other at home: Yes (children 17+19 yrs old) Do you presently have visiting nurse or other home services: No Alcohol intake: current Alcohol intake frequency: holidays/special occasions only Patient Tobacco Use Status: Never used Tobacco Second Hand Smoke Exposure: No Have you been hit, kicked, punched, or otherwise hurt by someone within the past year? If so, by whom?: No Are you DNR?: No Advance Directives: No Advance Directives Information Provided: Yes Advance Directives on File: No Recently lost weight without trying: No Patient : No Meds Allergies Allergy/AdvReac Type Severity Reaction Status Date / Time Iodinated Contrast Media Allergy Severe DIFF Verified 07/02/21 06:17 [IV CONTRAST] BREATHING/HIVES Contrast Allergy PreMed Pack Allergy Mild hives Uncoded 06/18/21 10:51 STATINS AdvReac Severe myalgias Uncoded 06/18/21 10:51 Home Medications Medication Instructions Recorded Confirmed Last Taken Type doxycycline hyclate 50 mg capsule 20 mg PO BID cap 09/03/20 06/18/21 Unknown History multivitamin 1 tab PO DAILY 09/03/20 06/18/21 Unknown History esomeprazole magnesium 20 mg 20 mg PO DAILY 05/28/21 06/08/21 Unknown History capsule,delayed release calcium carbonate 600 mg-vitamin 1 tab PO DAILY 06/18/21 06/18/21 Unknown History D3 10 mcg (400 unit) tablet (Calcium 600 + D(3)) sulfacetamide sodium (acne) 10 % TOPICAL 06/18/21 06/18/21 Unknown History lotion (suspension) Exam Airway Mallampati Class: II TM Dist: >3cm Neck ROM: Full Loose/Missing/Broken Teeth: No Heart: RRR Lungs: CTA Assessment and Plan Assessment Anesthesia Assessment: Anesthesia Plan Discussed Final Anesthetic Review History of Problems with Anesthesia: No NPO: Yes ASA Class: II Final Preanesthetic Review: Meds/Allgs Chart Reviewed, Consent Obtained/Reviewed and Anes Risks/Benef Reviewed Patient Risk: Low Procedure Risk: Low Anesthetic Plan Anesthetic Plan: GA Disposition: Standard PACU
[2021-07-01 15:46] LABS: COVID-19 Test Negative (Negative); IDNOW Serial# 9DD0AD1C
[2021-07-02] VITALS (9 sets, daily range): BP systolic 113–133; BP diastolic 61–72; PULSE 51–92; RESP 13–16; TEMP 36.6–37.1; O2SAT 96–100
[2021-07-02] MEDS: Lactated Ringers 1,000 ML 999 ML IV (06:49)
--- NOTE | 2021-07-02 11:49 | PM.OP ---
Brief Operative Note Date of Service: 07/02/21 Pre-op diagnosis: Recurrent umbilical hernia and panniculitis Post-op diagnosis: same Procedure: PROCEDURE: Panniculectomy with umbilical transposition and omental flap, umbilical hernia repair INDICATION: This a 56 year old female who underwent conversion of lap band to laparoscopic sleeve gastrectomy on 02/05/2020. She had an excellent result achieving a BMI of 24.4 kg/m2 with a total weight loss of 69.6lbs, or 33.6% of her TBWL. As a result, she has developed panniculitis which has not resolved despite continuous use of clotrimazole ointment as well as skin irritation and intetrigo in both upper arms. On exam she has extreme skin laxity due to massive weight loss and age with the abdominal pannus extending over the pubis. In addition, she has developed a recurrent umbilical hernia which causes pain. Panniculectomy and umbilical hernia repair was recommended. We discussed the two options for the panniculectomy of using a combined vertical and horizontal incisions or just a horizontal (bikini) incision. It was my recommendation to do only horizontal incision based on her body habitus and skin laxity. The patient agreed with this. Risks and complications were discussed with the patient including bleeding, infection, umbilical loss, flap necrosis, asymmetry, dehiscence, seroma, VTE. The patient understood the risks and was in agreement to proceed with surgery. PROCEDURE: The incisions were appropriately marked at the preop area with the patient standing and laying down. After induction of general anesthesia a Alfredo catheter and pneumatic compression devices were placed. The patient was prepped and draped in the usual sterile manner and the incisions were marked again and confirmed. In similar fashion both upper arms were also marked when the patient was standing. The skin was infiltrated with lidocaine and epinephrine. The #10 blade scalpel was used for the large incisions and the #15 blade scalpel for the umbilicus. Cautery was used to divide the subcutaneous tissues until the fascia was identified. Then I used the Thunderbeat (Olympus) to separate the pannus from the fascia. The inferior incision was made initially and I mobilized the flap for a several centimeters cephalad to the umbilicus. The umbilicus was incised circumferentially and detached from the surrounding tissues all the way to the fascia while its stalk was preserved. Once this was done the hernia sac was seen and it was just superior to the umbilical stalk. The hernia sac was excised at the fascia was re-approximated with #0 Ethibond suture in a figure of eight fashion. With the patient in reflex position I confirmed that the skin flaps were appropriate and would allow for the tissues to come together with reasonable tension. At that point a horizontal incision was made 3 cm above the umbilicus. #10 blade was used for the skin, cautery for the dermis and the Thunderbeat for the remaining tissues. An omental flap was raised from the upper flap in order to fill the space under the skin and support the closure of the two flaps. In addition the inferior flap was mobilized caudally for a few centimeters to create a space for the omental flap as well as relieve tension from the closure. A circumferential incision was made at the area where the umbilicus would be re-implanted. The umbilicus was appropriately oriented and was delivered through the defect and was secured in place with a Heather. No bleeding was noted anywhere. One Yassine drain was placed from the right corner of the horizontal incision across the wound and was secured in place with a silk suture. The omental flap was secured under the inferior flap with several interrupted 3.0 Monocryl sutures. The two flaps were brought together and were attached at the midline of the horizontal incision with a #3.0 Monocryl suture. At that point the umbilicus was properly oriented and was re-approximated to the skin with 8 interrupted 3.0 Monocryl sutures. In a similar fashion the skin flaps were re-approximated with multiple 3.0 Monocryl sutures. The skin was closed in all incisions and umbilicus with 4.0 Monocryl sutures. Steri-strips, xeroform gauzes and gauzes were used to cover the incisions. An abdominal binder was also placed. The was awaken and was transferred to the recover room in a stable condition. I was present and performed the entire procedure. Mr Anglin was the welder first class. Rogelio Watters MD, PhD, FACS Surgeon: Jerman Watters MD ?? Surgeon: Jerman Watters MD Anesthesia: GETA and local Was an Operator/Assistant Foreman used for this Procedure?: Yes Operator/Assistant Foreman: Lobito Anglin Estimated blood loss (mL): 10 IV fluids (mL): 2,500 Urine output (mL): 150 Pathology: other (1) hernia sac, 2) abdominal pannus) Condition: stable Disposition: PACU
[2021-07-02] MEDS: ceFAZolin Sodium/Dextrose,Iso 2 GM/50 ML PIGGYBACK IV (14:50)
--- NOTE | 2021-07-02 15:18 | MHC.CM.PN ---
Meet with patient in regard to dispo planning. Per BAYRON Anglin would like patient to have daily VNA x1 week. Patient A&O x3, able to communicate needs. Lives @ home w/ . Independent in the home and no prior services. Not a . Not interested in completing HCP at this time. Will send out referrals for VNA, anticipate it will be difficult to secure daily VNA, pt made aware. If pt d/c's before response form VNA. This administrative underwriter will call patient in AM. Patient aware and in agreement with plan.
[2021-07-02 15:34] LABS: Hematocrit 38.3 % (37.0-47.0); Hemoglobin 12.7 g/dl (12.0-16.0)
== END 2021-07-02 16:08 | disposition home or self-care (01) ==
PROVIDERS: Physician Assistant Surgical; PCP Internal Medicine; Visit Provider Surgery
PROC: 0JB80ZZ Excision of Abdomen Subcutaneous Tissue and Fascia, Open Approach (ICD-10-PCS; CPT 15830; principal; 2021-07-02 07:30)
DX: M79.3 Panniculitis, unspecified (principal); L98.7 Excessive and redundant skin and subcutaneous tissue; E65 Localized adiposity; K42.9 Umbilical hernia without obstruction or gangrene; K91.2 Postsurgical malabsorption, not elsewhere classified; Z98.84 Bariatric surgery status; Z90.3 Acquired absence of stomach [part of]; F41.9 Anxiety disorder, unspecified; Z79.899 Other long term (current) drug therapy; Z88.8 Allergy status to other drugs, medicaments and biological substances; Z91.041 Radiographic dye allergy status; Z90.49 Acquired absence of other specified parts of digestive tract; Z90.711 Acquired absence of uterus with remaining cervical stump; Z20.822 Contact with and (suspected) exposure to COVID-19
CPT/HCPCS: 49585; 15830; 36415; 85014; 85018; 86850; 86900; 86901; 87635; 88302; 88304; J0131; J0690; J1100; J1170; J2250; J2405; J3010

== ENCOUNTER → 2021-07-06 08:29 | Outpatient (BNVA) | payer BC, SELFPAY | PROVIDERS: PCP Internal Medicine; Visit Provider Surgery ==

== ENCOUNTER → 2021-07-13 08:15 | Outpatient (BNVA) | payer BC, SELFPAY | PROVIDERS: PCP Internal Medicine; Referring Provider Internal Medicine; Visit Provider Surgery ==

== ENCOUNTER 2021-08-05 10:32 | Outpatient (REF) | payer BC, SELFPAY ==
--- NOTE | ~2021-08-05 | US_ITS ---
EXAMINATION: RIGHT and LEFT LOWER EXTREMITY VENOUS ULTRASOUND (Reflux Exam) CLINICAL INDICATION: Varicose veins COMPARISON: None. TECHNIQUE: Color flow triplex imaging and compression Doppler was performed to evaluate both the deep and the superficial systems bilaterally. To evaluate the superficial system, the examination was performed in the upright position. Color-flow Doppler ultrasound and compression ultrasound were. In addition, maneuvers were to demonstrate reflux. FINDINGS: 1. DEEP VENOUS ULTRASOUND OF THE RIGHT LOWER EXTREMITY: Normal compression noted in the right common and superficial femoral veins as well as the right popliteal vein and posterior tibial vein. There is no evidence of deep venous thrombosis at these locations. There is no evidence of reflux in the deep system. There is no evidence of a Mishra's cyst. 2. SUPERFICIAL ULTRASOUND WITH DOPPLER OF RIGHT LOWER EXTREMITY: The right great saphenous vein at the saphenofemoral junction measures 5 mm, at the mid thigh 6 mm, ioaoa-xvk-khkr 2 mm, cygbl-jbc-vhdh not clearly visualized, at mid calf 5 mm and at the ankle measures 3 mm. Reflux is noted throughout the great saphenous vein, most prominent within the mid thigh where it last approximately 2.5 seconds. Reflux within the great saphenous vein within the mid right calf measures approximately 1.8 seconds. Varicose veins are noted within the mid thigh which measure up to 6 mm and demonstrate reflux of approximately 2.5 seconds. Varicose veins below the knee measure approximately 4 mm and demonstrate reflux of approximately 1 second. Small perforators are noted within the right mid thigh without reflux. The right small saphenous vein measures 4 mm and shows no reflux. 3. DEEP VENOUS ULTRASOUND OF THE LEFT LOWER EXTREMITY: Normal compression noted in the left common femoral vein as well as the left popliteal vein and there is no evidence of deep venous thrombosis at these locations. There is no evidence of reflux in the deep system in either the common femoral vein or the popliteal vein. . There is no evidence of a Mishra's cyst. 4. SUPERFICIAL ULTRASOUND WITH DOPPLER OF LEFT LOWER EXTREMITY: Left great saphenous vein at the saphenofemoral junction measures 7 mm, at the mid thigh 5 mm, ixumh-hzi-ptcg 4 mm, zyhaq-faz-asvz 3 mm, at mid calf 3 mm and at the ankle measures 3 mm. There is no reflux demonstrated in the left great saphenous vein. There is a varicose vein within the proximal 5 which measures 4 mm but has no reflux. A tiny transmission and protection engineer is noted below the knee which demonstrates no reflux. The left small saphenous vein measures 3 mm and shows no reflux. US/US venous duplex LE BI IMPRESSION: 1. No evidence of reflux or thrombus in the common femoral veins or popliteal veins bilaterally. 2. Prominent reflux noted throughout the majority of the right great saphenous vein measuring up to 2.5 seconds. There is also a prominent varicose vein within the right mid thigh which demonstrates reflux of approximately 2.5 seconds. Varicose veins below the knee on the right demonstrate reflux of approximately 1 second. No reflux identified within the left great or small saphenous veins. Small varicose veins within the left proximal thigh demonstrate no reflux.
== END 2021-08-05 10:33 | disposition home or self-care (01) ==
LOC: HO.US 10:32
PROVIDERS: Visit Provider Surgery Vascular Surgery
DX: I83.11 Varicose veins of right lower extremity with inflammation (principal)
CPT/HCPCS: 93970

== ENCOUNTER → 2021-08-11 14:52 | Outpatient (BNVA) | payer BC, SELFPAY | PROVIDERS: PCP Internal Medicine; Visit Provider Physician Assistant Surgical ==

== ENCOUNTER → 2021-08-13 15:15 | Outpatient (BNVA) | payer BC, SELFPAY | PROVIDERS: PCP Internal Medicine; Visit Provider Surgery Vascular Surgery ==

== ENCOUNTER → 2021-09-03 14:45 | Outpatient (BNVA) | payer BC, SELFPAY | PROVIDERS: PCP Internal Medicine; Visit Provider Orthopaedic Surgery | DX: M75.52 Bursitis of left shoulder (principal) | CPT/HCPCS: 20610; J1100 ==

== ENCOUNTER → 2021-09-11 07:32 | Outpatient (BNVA) | payer BC, SELFPAY | PROVIDERS: PCP Internal Medicine; Visit Provider Surgery Vascular Surgery | DX: I83.11 Varicose veins of right lower extremity with inflammation (principal) | CPT/HCPCS: 36475 ==

== ENCOUNTER 2021-09-14 14:50 | Outpatient (REF) | payer BC, SELFPAY ==
--- NOTE | ~2021-09-14 | US_ITS ---
EXAMINATION: US VENOUS ULTRASOUND WITH DOPPLER LOWER EXTREMITY, RIGHT CLINICAL INFORMATION: Right leg pain. Status post right greater saphenous vein RFA. COMPARISON: None TECHNIQUE: Ultrasound of the deep veins is performed from the hip to the calf with compression sonography and color and pulse Doppler assessment. Spectral analysis with color-flow imaging is performed. FINDINGS: There is normal venous compression and respiratory variation and augmented flow. The visualized common femoral vein, superficial femoral vein, profunda femoral vein, popliteal vein, and the trifurcation region shows no evidence of deep venous thrombosis. There is no significant popliteal fossa cyst. Thrombosed treated greater saphenous vein is 0.6 cm from the femoral vein. If the patient's symptoms persist, followup ultrasound in 5 days 7 days might be of value to exclude proximal propagation from a non-visualized calf vein. US/US venous duplex LE RT IMPRESSION: No DVT demonstrated in the right lower extremity.
== END 2021-09-14 14:51 | disposition home or self-care (01) ==
LOC: HO.US 14:50
PROVIDERS: PCP Internal Medicine; Visit Provider Surgery Vascular Surgery
DX: M79.604 Pain in right leg (principal); Z98.890 Other specified postprocedural states
CPT/HCPCS: 93971

== ENCOUNTER → 2021-09-16 14:52 | Outpatient (BNVA) | payer BC, SELFPAY | PROVIDERS: PCP Internal Medicine; Referring Provider Surgery; Visit Provider Physician Assistant Surgical | DX: Z13.89 Encounter for screening for other disorder (principal) ==

== ENCOUNTER → 2021-09-22 14:54 | Outpatient (BNVA) | payer BC, SELFPAY | PROVIDERS: PCP Internal Medicine; Visit Provider Surgery Vascular Surgery | DX: Z13.89 Encounter for screening for other disorder (principal) ==

== ENCOUNTER → 2021-10-21 14:52 | Outpatient (BNVA) | payer BC, SELFPAY | PROVIDERS: PCP Internal Medicine; Referring Provider Physician Assistant Surgical; Visit Provider Dietitian, Registered | DX: E66.9 Obesity, unspecified (principal); Z68.24 Body mass index [BMI] 24.0-24.9, adult; Z98.84 Bariatric surgery status | CPT/HCPCS: 97803 ==

== ENCOUNTER → 2021-11-03 14:54 | Outpatient (BNVA) | payer BC, SELFPAY | PROVIDERS: PCP Internal Medicine; Referring Provider Internal Medicine; Visit Provider Physician Assistant Surgical | DX: Z13.89 Encounter for screening for other disorder (principal) ==

== ENCOUNTER 2021-12-29 11:03 | Outpatient (REF) | payer BC, SELFPAY ==
--- NOTE | ~2021-12-29 | XR_ITS ---
EXAMINATION: XR KNEE, LEFT CLINICAL INFORMATION: Left knee pain COMPARISON: None TECHNIQUE: AP and lateral views of the left knee. FINDINGS: Bones and soft tissues are normal. No fracture or joint effusion. Alignment is anatomic. Joint spaces are well maintained. No abnormal soft tissue calcification. XR/XR knee LT 2V IMPRESSION: Normal left knee.
== END 2021-12-29 11:04 | disposition home or self-care (01) ==
LOC: HO.XRAY 11:03
PROVIDERS: PCP Internal Medicine; Visit Provider Internal Medicine
DX: M25.562 Pain in left knee (principal)
CPT/HCPCS: 73560

== ENCOUNTER 2022-02-05 08:07 | Outpatient (REF) | payer BC, SELFPAY ==
[2022-02-05 08:27] LABS: MANUAL DIFF FLAG NO
[2022-02-05 08:55] LABS: Basophils Absolute Auto 0.1 X10*3/uL (0.0-0.2); Basophils Percent Auto 0.9 % (0-2); Eosinophils Absolute Auto 0.1 X10*3/uL (0.0-0.4); Eosinophils Percent Auto 1.4 % (0-4); Hematocrit 37.8 % (37.0-47.0); Hemoglobin 12.7 g/dl (12.0-16.0); Imm Gran Abs Auto 0.02 X10*3/uL (0.00-0.03); Imm Gran Pct Auto 0.4 % (0.0-0.4); Lymphocytes Absolute Auto 2.4 X10*3/uL (1.2-4.9); Mean Corpuscular HGB Conc 33.6 g/dl (31.0-35.0); Mean Corpuscular Hemoglobin 30.8 pg (27.0-33.0); Mean Corpuscular Volume 91.7 fL (80.0-98.0); Mean Platelet Volume 10.1 fL (9.4-12.3); Monocytes Absolute Auto 0.4 X10*3/uL (0.1-1.2); Monocytes Percent Auto 7.1 % (2-11); Neutrophils Absolute Auto 2.7 x10*3/uL (2.0-8.3); Neutrophils Percent Auto 48.2 % (45-73); Platelet Count 251 X10*3/uL (160-400); Red Blood Count 4.12 X10*6/uL (4.20-5.50); Red Cell Distribution Width 13.3 % (11.0-16.0); White Blood Count 5.6 X10*3/uL (4.8-10.8)
[2022-02-05 09:04] LABS: Estimated Average Glucose 103 mg/dL; Hemoglobin A1c % 5.2 %
[2022-02-05 09:40] LABS: Alanine Aminotransferase 25 U/L (0-31); Alkaline Phosphatase 82 U/L (39-117); Anion Gap 13 (12-20); Aspartate Amino Transferase 27 U/L (5-31); Bilirubin Total 0.6 mg/dL (0.0-1.0); Blood Urea Nitrogen 16 mg/dL (9-16); C Reactive Protein 0.14 mg/dL (< or = 0.50); Calcium 9.2 mg/dL (8.4-10.2); Carbon Dioxide 28 mmol/L (22-29); Chloride 105 mmol/L (96-108); Cholesterol 181 mg/dL; Estimated Glomerular Filt Rate > 60; Glucose Random 89 mg/dL (60-115); HDL Cholesterol 70 mg/dL; Iron 74 mcg/dL (30-160); LDL Cholesterol Calculated 104 mg/dl; Percent Iron Saturation 22 % (15-50); Potassium 4.2 mmol/L (3.3-5.1); Sodium 142 mmol/L (135-145); Total Iron Binding Capacity 340 mcg/dL (228-428); Total Protein 6.4 g/dL (6.5-8.0); Triglycerides 39 mg/dL; Unsaturated Iron Binding 266 ug/dL
[2022-02-05 09:49] LABS: Ferritin 21 ng/mL (10-250); Vitamin D 25-OH Total 59.1 ng/mL (>30)
[2022-02-05 10:10] LABS: Folate > 20.0 ng/mL (> or = 4.0); Vitamin B12 1178 pg/mL (200-900)
[2022-02-05 10:15] LABS: Insulin 3 uU/mL (2-29)
[2022-02-07 13:17] LABS: Calcium (PTHI) 9.1 mg/dL (8.6-10.4); PTHI 57 pg/mL (16-77)
[2022-02-10 02:42] LABS: Zinc 82 mcg/dL (60-130)
[2022-02-10 17:02] LABS: Vitamin A 42 mcg/dL (38-98)
[2022-02-11 15:11] LABS: Vitamin B1 22 nmol/L (8-30)
== END 2022-02-05 08:08 | disposition home or self-care (01) ==
LOC: HO.LAB 08:07
PROVIDERS: PCP Internal Medicine; Visit Provider Physician Assistant Surgical
DX: Z98.84 Bariatric surgery status (principal)
CPT/HCPCS: 36415; 80053; 80061; 82306; 82607; 82728; 82746; 83036; 83525; 83540; 83970; 84425; 84443; 84590; 84630; 85025; 86140

== ENCOUNTER 2022-05-11 10:32 | Outpatient (REF) | payer BC, SELFPAY ==
[2022-05-11 10:56] LABS: MANUAL DIFF FLAG NO
[2022-05-11 11:29] LABS: Basophils Absolute Auto 0.1 X10*3/uL (0.0-0.2); Basophils Percent Auto 0.7 % (0-2); Eosinophils Absolute Auto 0.1 X10*3/uL (0.0-0.4); Eosinophils Percent Auto 0.7 % (0-4); Hemoglobin 13.4 g/dl (12.0-16.0); Imm Gran Abs Auto 0.04 X10*3/uL (0.00-0.03); Imm Gran Pct Auto 0.6 % (0.0-0.4); Lymphocytes Absolute Auto 2.3 X10*3/uL (1.2-4.9); Lymphocytes Percent Auto 31.7 % (20-40); Mean Corpuscular HGB Conc 32.7 g/dl (31.0-35.0); Mean Corpuscular Hemoglobin 30.1 pg (27.0-33.0); Mean Corpuscular Volume 92.1 fL (80.0-98.0); Mean Platelet Volume 10.2 fL (9.4-12.3); Monocytes Absolute Auto 0.5 X10*3/uL (0.1-1.2); Monocytes Percent Auto 6.5 % (2-11); Neutrophils Absolute Auto 4.3 x10*3/uL (2.0-8.3); Neutrophils Percent Auto 59.8 % (45-73); Platelet Count 260 X10*3/uL (160-400); Red Blood Count 4.45 X10*6/uL (4.20-5.50); Red Cell Distribution Width 12.8 % (11.0-16.0); White Blood Count 7.2 X10*3/uL (4.8-10.8)
[2022-05-11 11:42] LABS: Appearance Urine Clear; Color Urine Yellow; Glucose Urine UA Negative (Negative); Leukocyte Esterase Urine Negative (Negative); Nitrite Urine Negative (Negative); Specific Gravity - Urine <= 1.005 (1.005-1.025); Urine Blood Negative (Negative); Urine Ketones Negative (Negative); Urine Protein Negative (Neg-Trace)
[2022-05-11 11:49] LABS: Bacteria Urine None Seen (None Seen); Hyaline Casts Urine 0-2 /LPF (0-2); RBC Urine 0-2 /HPF (0-2); Squamous Epithelial Cell Urine 0-2 /HPF (0-2); WBC Urine 0-5 /HPF (0-5)
[2022-05-11 12:39] LABS: Free T4 (Free Thyroxine) 1.08 ng/dL (0.71-1.85); Thyroid Stimulating Hormone 0.52 uIU/mL (0.32-4.0)
[2022-05-11 12:47] LABS: Alanine Aminotransferase 33 U/L (0-31); Albumin Level 4.2 g/dL (3.5-5.0); Alkaline Phosphatase 84 U/L (39-117); Anion Gap 14 (12-20); Aspartate Amino Transferase 38 U/L (5-31); Bilirubin Total 0.4 mg/dL (0.0-1.0); Blood Urea Nitrogen 19 mg/dL (9-16); Calcium 9.7 mg/dL (8.4-10.2); Carbon Dioxide 28 mmol/L (22-29); Chloride 104 mmol/L (96-108); Estimated Glomerular Filt Rate > 60; Glucose Random 72 mg/dL (60-115); Magnesium 2.3 mg/dL (1.6-2.6); Phosphorus 4.5 mg/dL (2.7-4.5); Potassium 4.1 mmol/L (3.3-5.1); Sodium 142 mmol/L (135-145); Total Protein 6.9 g/dL (6.5-8.0)
[2022-05-11 15:42] LABS: Vitamin B12 1288 pg/mL (200-900)
[2022-05-11 15:51] LABS: Folate 18.5 ng/mL (> or = 4.0)
== END 2022-05-11 10:33 | disposition home or self-care (01) ==
LOC: HO.LAB 10:32
PROVIDERS: PCP Internal Medicine; Visit Provider Internal Medicine
DX: K91.2 Postsurgical malabsorption, not elsewhere classified (principal); K21.9 Gastro-esophageal reflux disease without esophagitis; Z90.3 Acquired absence of stomach [part of]
CPT/HCPCS: 36415; 80053; 81001; 82607; 82746; 83735; 84100; 84439; 84443; 85025

== ENCOUNTER 2022-05-25 14:49 | Outpatient (REF) | payer BC, SELFPAY ==
--- NOTE | ~2022-05-25 | MM_ITS ---
EXAMINATION: MM SCREENING DIGITAL BREAST TOMOSYNTHESIS, BILATERAL CLINICAL INFORMATION: Screening. Asymptomatic. Status post left excisional surgery for intraductal papilloma. The lifetime risk of breast cancer based on the Tyrer-Cuzick Model is 10.1%. COMPARISON: Mammography: January 19, 2021 and studies dating back to October 23, 2010 TECHNIQUE: Digital breast tomosynthesis is performed in both the craniocaudal and mediolateral oblique views along with computer-aided detection (CAD). Synthesized 2D images are generated from the tomosynthesis. FINDINGS: The breasts are heterogeneously dense, which may obscure small masses (ACR BI-RADS breast composition Category c). There are no new significant masses, abnormal calcifications, or other abnormalities. MM/MM tomosynthesis screening BI IMPRESSION: No significant changes from prior exam. ASSESSMENT: BI-RADS 1: Negative RECOMMENDATION: Routine annual mammography screening. This patient's information was entered into a reminder system with a target due date for their next mammogram.
== END 2022-05-25 14:50 | disposition home or self-care (01) ==
LOC: HO.MAMMO 14:49
PROVIDERS: PCP Internal Medicine; Visit Provider Internal Medicine
DX: Z12.31 Encounter for screening mammogram for malignant neoplasm of breast (principal)
CPT/HCPCS: 77063; 77067

== ENCOUNTER → 2022-07-05 15:22 | Outpatient (BNVA) | payer BC, SELFPAY | PROVIDERS: PCP Internal Medicine; Visit Provider Dietitian, Registered | DX: E66.3 Overweight (principal) | CPT/HCPCS: 97803 ==

== ENCOUNTER → 2022-08-04 17:00 | Outpatient (BNVA) | payer BC, SELFPAY | PROVIDERS: PCP Internal Medicine; Visit Provider Counselor Mental Health | DX: F43.20 Adjustment disorder, unspecified (principal); Z98.84 Bariatric surgery status | CPT/HCPCS: 90853 ==

== ENCOUNTER → 2022-08-24 10:52 | Outpatient (BNVA) | payer BC, SELFPAY | PROVIDERS: PCP Internal Medicine; Visit Provider Physician Assistant Surgical | DX: Z13.89 Encounter for screening for other disorder (principal) ==

== ENCOUNTER → 2022-08-25 16:12 | Outpatient (BNVA) | payer BC, SELFPAY | PROVIDERS: PCP Internal Medicine; Visit Provider Counselor Mental Health | DX: F41.1 Generalized anxiety disorder (principal); K90.49 Malabsorption due to intolerance, not elsewhere classified; M79.3 Panniculitis, unspecified; Z90.49 Acquired absence of other specified parts of digestive tract; Z98.84 Bariatric surgery status | CPT/HCPCS: 90853 ==

== ENCOUNTER → 2022-09-01 19:25 | Outpatient (BNVA) | payer BC, SELFPAY | PROVIDERS: PCP Internal Medicine; Visit Provider Counselor Mental Health | DX: F41.1 Generalized anxiety disorder (principal); Z90.3 Acquired absence of stomach [part of] | CPT/HCPCS: 90853 ==

== ENCOUNTER → 2022-09-06 14:54 | Outpatient (BNVA) | payer BC, SELFPAY | PROVIDERS: PCP Internal Medicine; Visit Provider Counselor Mental Health | DX: Z13.89 Encounter for screening for other disorder (principal) ==

== ENCOUNTER → 2022-09-08 17:12 | Outpatient (BNVA) | payer BC, SELFPAY | PROVIDERS: PCP Internal Medicine; Visit Provider Counselor Mental Health | DX: F41.1 Generalized anxiety disorder (principal); Z98.84 Bariatric surgery status | CPT/HCPCS: 90853 ==

== ENCOUNTER → 2022-09-10 11:05 | Outpatient (BNVA) | payer BC, SELFPAY | PROVIDERS: PCP Internal Medicine; Visit Provider Counselor Mental Health | DX: Z13.89 Encounter for screening for other disorder (principal) ==

== ENCOUNTER → 2022-09-15 16:47 | Outpatient (BNVA) | payer BC, SELFPAY | PROVIDERS: PCP Internal Medicine; Visit Provider Counselor Mental Health | DX: F41.1 Generalized anxiety disorder (principal); Z98.84 Bariatric surgery status | CPT/HCPCS: 90853 ==

== ENCOUNTER → 2022-09-20 14:45 | Outpatient (BNVA) | payer BC, SELFPAY | PROVIDERS: PCP Internal Medicine; Visit Provider Counselor Mental Health | DX: Z13.89 Encounter for screening for other disorder (principal) ==

== ENCOUNTER → 2022-09-22 15:53 | Outpatient (BNVA) | payer BC, SELFPAY | PROVIDERS: PCP Internal Medicine; Visit Provider Counselor Mental Health | DX: F41.1 Generalized anxiety disorder (principal); Z98.84 Bariatric surgery status | CPT/HCPCS: 90853 ==

== ENCOUNTER → 2022-09-29 16:48 | Outpatient (BNVA) | payer BC, SELFPAY | PROVIDERS: PCP Internal Medicine; Visit Provider Counselor Mental Health | DX: F41.1 Generalized anxiety disorder (principal); Z98.84 Bariatric surgery status | CPT/HCPCS: 90853 ==

== ENCOUNTER → 2022-10-04 08:24 | Outpatient (BNVA) | payer BC, SELFPAY | PROVIDERS: PCP Internal Medicine; Visit Provider Counselor Mental Health | DX: Z13.89 Encounter for screening for other disorder (principal) ==

== ENCOUNTER → 2022-10-06 17:05 | Outpatient (BNVA) | payer BC, SELFPAY | PROVIDERS: PCP Internal Medicine; Visit Provider Counselor Mental Health | DX: Z13.89 Encounter for screening for other disorder (principal) ==

== ENCOUNTER → 2022-10-11 14:47 | Outpatient (BNVA) | payer BC, SELFPAY | PROVIDERS: PCP Internal Medicine; Visit Provider Counselor Mental Health | DX: Z13.89 Encounter for screening for other disorder (principal) ==

== ENCOUNTER → 2022-10-13 17:01 | Outpatient (BNVA) | payer BC, SELFPAY | PROVIDERS: PCP Internal Medicine; Visit Provider Counselor Mental Health | DX: F41.1 Generalized anxiety disorder (principal); Z98.84 Bariatric surgery status | CPT/HCPCS: 90853 ==

== ENCOUNTER 2022-10-19 09:34 | Day surgery (SDC) | payer BC, SELFPAY ==
--- NOTE | 2022-10-18 15:14 | HO.ANESPROP2 ---
Documented by User: Karoline Licea NP 10/18/22 15:15 HPI - Anesthesia Eval Consult details Narrative: 57yo F for Colonoscopy PMFSH Active Problems Active Problems: All Active Problems (Updated 08/05/22 @ 10:57 by Viviana Ruggiero) Adjustment disorder, unspecified (Acute) H/O shoulder surgery (Acute) Generalized anxiety disorder (Acute) Leg cramps (Acute) Insomnia (Acute) GERD (gastroesophageal reflux disease) (Acute) Colon cancer screening (Acute) Overweight (BMI 25.0-29.9) (Acute) Left knee pain (Acute) Bursitis of left shoulder (Acute) Left shoulder pain (Acute) S/P panniculectomy (Acute) Intraductal papilloma (Acute) Rotator cuff impingement syndrome of left shoulder (Acute) COVID-19 virus infection (Acute) Excess skin (Acute) Annual physical exam (Acute) Colon cancer screening (Acute) Varicose veins of right lower extremity (Acute) Varicose veins of right lower extremity with inflammation (Acute) Postgastrectomy malabsorption (Acute) Panniculitis (Acute) Bariatric surgery status (Acute) Anxiety (Acute) S/P laparoscopic sleeve gastrectomy (Acute ~2019) Intestinal malabsorption following gastrectomy (Acute) Past Medical History Medical History Adopted Anxiety Breast asymmetry following reconstructive surgery Breast cancer screening by mammogram Eczema Intestinal malabsorption following gastrectomy Migraine Panniculitis Pre-op testing Rosacea Family History Family History Father No problems noted. Mother No problems noted. Brother No problems noted. Brother No problems noted. Brother No problems noted. Daughter No problems noted. Daughter No problems noted. Surgical History Surgical History Bariatric surgery status H/O elbow surgery H/O shoulder surgery History of hernia surgery Hx laparoscopic cholecystectomy (2003) Hx of section (2003) Hx of knee surgery Hx of laparoscopic gastric banding Hx of umbilical hernia repair (2005) Hx of varicose vein ligation S/P laparoscopic sleeve gastrectomy (~2019) S/P TORIBIO (total abdominal hysterectomy) Status post panniculectomy History of Problems with Anesthesia: No Social History Social History (Reviewed 08/24/22 @ 11:01 by PAOLA Ash Housing: House Are you a primary memory care program resident to a significant other at home: Yes (children 17+19 yrs old) Do you presently have visiting nurse or other home services: No Alcohol intake: current Alcohol intake frequency: holidays/special occasions only Patient Tobacco Use Status: Never used Tobacco e-Cigarette/Vaping Use: Never Used Second Hand Smoke Exposure: No service: No Current occupational status: employed 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 Cognitive needs: No Hearing needs: No Vision needs: Yes (Glasses) Meds Allergies Allergy/AdvReac Type Severity Reaction Status Date / Time Iodinated Contrast Media Allergy Severe DIFF Verified 10/19/22 10:49 [IV CONTRAST] BREATHING/HIVES Contrast Allergy PreMed Pack Allergy Mild hives Uncoded 08/03/22 15:26 STATINS AdvReac Severe myalgias Uncoded 08/03/22 15:26 Home Medications Medication Instructions Recorded Confirmed Last Taken Type multivitamin (Multiple Vitamins 1 tab PO DAILY 09/03/20 10/19/22 Unknown History tablet) calcium carbonate 600 mg-vitamin 1 tab PO DAILY 06/18/21 10/19/22 Unknown History D3 10 mcg (400 unit) tablet (Calcium 600 + D(3)) sulfacetamide sodium (acne) 10 % 10 appl topical DAILY 06/18/21 10/19/22 Unknown History lotion (suspension) magnesium 250 mg tablet 250 mg PO DAILY 05/04/22 10/19/22 Unknown History doxycycline hyclate 20 mg tablet 20 mg PO BID 10/18/22 10/19/22 Unknown History Exam Exam Date and Time: October 18, 2022 151 Pertinent Lab Results Pertinent Lab Results: Laboratory Tests 05/11/22 05/11/22 10:54 10:54 WBC 7.2 Hgb 13.4 Hct 41.0 Plt Count 260 Sodium 142 Potassium 4.1 Chloride 104 Carbon Dioxide 28 BUN 19 H Creatinine 0.74 Assessment and Plan Assessment Anesthesia Assessment: Chart Reviewed Final Anesthetic Review History of Problems with Anesthesia: No Documented by User: Yaw Mills MD 10/19/22 14:11 HPI - Anesthesia Eval Consult details Narrative: 57yo F for Colonoscopy No chest pain , functional status greater than 4 mets PMFSH Past Medical History Medical History Adopted Anxiety Breast asymmetry following reconstructive surgery Breast cancer screening by mammogram Eczema Intestinal malabsorption following gastrectomy Migraine Panniculitis Pre-op testing Rosacea Functional capacity: independent ambulation Family History Family History Father No problems noted. Mother No problems noted. Brother No problems noted. Brother No problems noted. Brother No problems noted. Daughter No problems noted. Daughter No problems noted. Family history of problems with anesthesia: Unobtainable Surgical History Surgical History Bariatric surgery status H/O elbow surgery H/O shoulder surgery History of hernia surgery Hx laparoscopic cholecystectomy (2003) Hx of section (2003) Hx of knee surgery Hx of laparoscopic gastric banding Hx of umbilical hernia repair (2005) Hx of varicose vein ligation S/P laparoscopic sleeve gastrectomy (~2019) S/P TORIBIO (total abdominal hysterectomy) Status post panniculectomy Social History 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 memory care program resident to a significant other at home: Yes (children 17+19 yrs old) Do you presently have visiting nurse or other home services: No Alcohol intake: current Alcohol intake frequency: holidays/special occasions only Patient Tobacco Use Status: Never used Tobacco e-Cigarette/Vaping Use: Never Used Second Hand Smoke Exposure: No service: No 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 occupational status: employed 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 Cognitive needs: No Hearing needs: No Vision needs: Yes (Glasses) Meds Allergies Allergy/AdvReac Type Severity Reaction Status Date / Time Iodinated Contrast Media Allergy Severe DIFF Verified 10/19/22 10:49 [IV CONTRAST] BREATHING/HIVES Contrast Allergy PreMed Pack Allergy Mild hives Uncoded 08/03/22 15:26 STATINS AdvReac Severe myalgias Uncoded 08/03/22 15:26 Home Medications Medication Instructions Recorded Confirmed Last Taken Type multivitamin (Multiple Vitamins 1 tab PO DAILY 09/03/20 10/19/22 Unknown History tablet) calcium carbonate 600 mg-vitamin 1 tab PO DAILY 06/18/21 10/19/22 Unknown History D3 10 mcg (400 unit) tablet (Calcium 600 + D(3)) sulfacetamide sodium (acne) 10 % 10 appl topical DAILY 06/18/21 10/19/22 Unknown History lotion (suspension) magnesium 250 mg tablet 250 mg PO DAILY 05/04/22 10/19/22 Unknown History doxycycline hyclate 20 mg tablet 20 mg PO BID 10/18/22 10/19/22 Unknown History Exam Airway Mallampati Class: III TM Dist: >3cm Neck ROM: Full Loose/Missing/Broken Teeth: Yes (fillings ) Assessment and Plan Assessment Anesthesia Assessment: Anesthesia Plan Discussed Final Anesthetic Review Family History of Problems with Anesthesia: Unobtainable NPO: Yes ASA Class: II Final Preanesthetic Review: Meds/Allgs Chart Reviewed, Consent Obtained/Reviewed and Anes Risks/Benef Reviewed Patient Risk: Intermediate Procedure Risk: Intermediate Anesthetic Plan Anesthetic Plan: MAC: and Agree w/ Assess. and Plan Disposition: Standard PACU
[2022-10-19 10:43] VITALS: BMI 25.2
[2022-10-19 10:57] VITALS: BP 131/62; PULSE 48; RESP 15; TEMP 36.5; O2SAT 98
[2022-10-19] MEDS: Lactated Ringers 1,000 ML 100 ML IVCONT (11:08)
--- NOTE | 2022-10-19 12:57 | MHC.SHP ---
Pre-Procedural Eval Section A Date of Service: 10/19/22 The patient is an INPATIENT: No Changes since office visit: No Cold of Flu in the past 2 weeks, No New Medical Problems, No Changes in Medication and No Patient answered all questions The History & Physical has been completed within 30 days and I have reviewed it.: Yes Section B Chief Complaint: Screening Allergies: Allergies Allergy/AdvReac Type Severity Reaction Status Date / Time Iodinated Contrast Media Allergy Severe DIFF Verified 10/19/22 10:49 [IV CONTRAST] BREATHING/HIVES Contrast Allergy PreMed Pack Allergy Mild hives Uncoded 08/03/22 15:26 STATINS AdvReac Severe myalgias Uncoded 08/03/22 15:26 Plan I have reviewed the history and physical and performed a pertinent physical examination on my patient. No changes have occurred unless specified. Time Spent With Patient Time: Total time managing care of this patient today ____ minutes.
--- NOTE | 2022-10-19 13:53 | PM.OP ---
Brief Operative Note Date of Service: 10/19/22 Pre-op diagnosis: screening Post-op diagnosis: same Procedure: colonoscopy Surgeon: Randell Forrester Anesthesia: MAC Was an Principal Java Software Engineer used for this Procedure?: No Estimated blood loss (mL): 0 Pathology: none sent Condition: stable Disposition: PACU
[2022-10-19 14:00] VITALS: BP 93/50; PULSE 59; RESP 16; TEMP 36.1; O2SAT 98
--- NOTE | 2022-10-19 14:07 | OP_ITS ---
DATE OF SERVICE: 10/19/2022 SURGEON: Randell Forrester MD INDICATIONS: Colon cancer screening. PREOPERATIVE DIAGNOSIS: POSTOPERATIVE DIAGNOSIS: PROCEDURE PERFORMED: Colonoscopy to the terminal ileum. ESTIMATED BLOOD LOSS: COMPLICATIONS: ANESTHESIA: Monitored anesthesia care. ASSISTANTS: SPECIMENS: DESCRIPTION OF PROCEDURE: A history and physical was performed. The risks and benefits of the procedure were explained to the patient. Informed consent was obtained. The patient was placed in the left lateral decubitus position. A digital rectal exam was performed and was found to be normal. The Olympus pediatric video colonoscope was introduced into the rectum and advanced to the cecum without difficulty. The cecum was identified by transillumination, palpation, and identification of ileocecal valve. Examination was performed. The scope was removed. She tolerated the procedure well and was returned to the recovery area in stable condition. FINDINGS: The terminal ileum was examined and appeared normal. The visualized colonic mucosa was within normal limits without evidence of masses or ulcers. No polyps were identified. There was a thin layer of stool coating the mucosa mainly in the right colon and transverse colon. This was washed and suctioned as best possible. Retroflexed examination showed small internal hemorrhoids. There was very mild to minimal sigmoid diverticulosis. IMPRESSION: Normal colonoscopy. RECOMMENDATION: 1. Follow up as needed. 2. Repeat colonoscopy is recommended in 10 years for average risk individuals. MD AZAR Fontanez/LYDIA / [id number]
[2022-10-19 14:15] VITALS: BP 134/70; PULSE 48; RESP 14; TEMP 36.1; O2SAT 100
== END 2022-10-19 15:00 | disposition home or self-care (01) ==
PROVIDERS: PCP Internal Medicine; Visit Provider Internal Medicine Gastroenterology
PROC: 0DJD8ZZ Inspection of Lower Intestinal Tract, Via Natural or Artificial Opening Endoscopic (ICD-10-PCS; CPT 45378; principal; 2022-10-19 10:50)
DX: Z12.11 Encounter for screening for malignant neoplasm of colon (principal); K57.30 Diverticulosis of large intestine without perforation or abscess without bleeding; K64.8 Other hemorrhoids; Z79.899 Other long term (current) drug therapy; Z90.49 Acquired absence of other specified parts of digestive tract; Z98.84 Bariatric surgery status; Z91.041 Radiographic dye allergy status
CPT/HCPCS: 45378

== ENCOUNTER → 2022-10-20 10:30 | Outpatient (BNVA) | payer BC, SELFPAY | PROVIDERS: PCP Internal Medicine; Visit Provider Counselor Mental Health ==

== ENCOUNTER → 2022-10-25 14:48 | Outpatient (BNVA) | payer BC, SELFPAY | PROVIDERS: PCP Internal Medicine; Visit Provider Counselor Mental Health ==

== ENCOUNTER 2022-10-28 11:23 | Outpatient (REF) | payer BC, SELFPAY ==
[2022-10-28 12:25] LABS: Hematocrit 44.2 % (37.0-47.0); Hemoglobin 14.8 g/dl (12.0-16.0); Mean Corpuscular HGB Conc 33.5 g/dl (31.0-35.0); Mean Corpuscular Hemoglobin 30.9 pg (27.0-33.0); Mean Corpuscular Volume 92.3 fL (80.0-98.0); Mean Platelet Volume 9.9 fL (9.4-12.3); Platelet Count 266 X10*3/uL (160-400); Red Blood Count 4.79 X10*6/uL (4.20-5.50); Red Cell Distribution Width 13.1 % (11.0-16.0); White Blood Count 3.3 X10*3/uL (4.8-10.8)
[2022-10-28 12:56] LABS: Alanine Aminotransferase 38 U/L (0-31); Albumin Level 4.2 g/dL (3.5-5.0); Alkaline Phosphatase 77 U/L (39-117); Anion Gap 14 (12-20); Aspartate Amino Transferase 36 U/L (5-31); Bilirubin Total 0.5 mg/dL (0.0-1.0); Blood Urea Nitrogen 12 mg/dL (9-16); Calcium 9.5 mg/dL (8.4-10.2); Carbon Dioxide 29 mmol/L (22-29); Chloride 103 mmol/L (96-108); Estimated Glomerular Filt Rate > 60; Glucose Random 97 mg/dL (60-115); Magnesium 2.2 mg/dL (1.6-2.6); Sodium 142 mmol/L (135-145); Total Protein 6.9 g/dL (6.5-8.0)
== END 2022-10-28 11:24 | disposition home or self-care (01) ==
LOC: HO.LAB 11:23
PROVIDERS: PCP Internal Medicine; Visit Provider Nurse Practitioner Family
DX: R10.9 Unspecified abdominal pain (principal); R11.10 Vomiting, unspecified; R19.7 Diarrhea, unspecified; Z13.0 Encounter for screening for diseases of the blood and blood-forming organs and certain disorders involving the immune mechanism
CPT/HCPCS: 36415; 80053; 82550; 83735; 85027

== ENCOUNTER → 2022-11-01 14:49 | Outpatient (BNVA) | payer BC, SELFPAY | PROVIDERS: PCP Internal Medicine; Visit Provider Counselor Mental Health ==

== ENCOUNTER 2022-11-10 14:52 | Outpatient (REF) | payer BC, SELFPAY ==
[2022-11-10 15:02] LABS: MANUAL DIFF FLAG NO
[2022-11-10 15:18] LABS: Basophils Percent Auto 0.4 % (0-2); Eosinophils Absolute Auto 0.1 X10*3/uL (0.0-0.4); Hematocrit 38.1 % (37.0-47.0); Hemoglobin 12.3 g/dl (12.0-16.0); Imm Gran Abs Auto 0.04 X10*3/uL (0.00-0.03); Imm Gran Pct Auto 0.6 % (0.0-0.4); Lymphocytes Absolute Auto 2.6 X10*3/uL (1.2-4.9); Lymphocytes Percent Auto 36.2 % (20-40); Mean Corpuscular HGB Conc 32.3 g/dl (31.0-35.0); Mean Corpuscular Hemoglobin 29.9 pg (27.0-33.0); Mean Corpuscular Volume 92.5 fL (80.0-98.0); Mean Platelet Volume 9.7 fL (9.4-12.3); Monocytes Absolute Auto 0.6 X10*3/uL (0.1-1.2); Monocytes Percent Auto 8.8 % (2-11); Neutrophils Absolute Auto 3.8 x10*3/uL (2.0-8.3); Platelet Count 267 X10*3/uL (160-400); Red Blood Count 4.12 X10*6/uL (4.20-5.50); Red Cell Distribution Width 13.1 % (11.0-16.0); White Blood Count 7.2 X10*3/uL (4.8-10.8)
[2022-11-10 15:47] LABS: Alanine Aminotransferase 39 U/L (0-31); Albumin Level 4.1 g/dL (3.5-5.0); Alkaline Phosphatase 67 U/L (39-117); Aspartate Amino Transferase 37 U/L (5-31); Bilirubin Direct 0.1 mg/dL (0.0-0.5); Bilirubin Total 0.5 mg/dL (0.0-1.0); Total Protein 6.6 g/dL (6.5-8.0)
[2022-11-12 03:18] LABS: HBS Num1 0.12 mIU/mL (0-7.99); HBc Num1 0.07 S/CO (0.00-0.79); HBsAGNum1 0.36 S/CO (0.00-0.99); Hepatitis B Core Antibody Nonreactive (Nonreactive); Hepatitis B Surface Antigen Negative (Negative); ~HepC Num1 0.07 S/CO (0.00-0.79); ~Hepatitis A Antibody IgM Nonreactive (Nonreactive); ~Hepatitis B Surface Antibody NONREACTIVE (Nonreactive); ~Hepatitis C Antibody Nonreactive (Nonreactive)
== END 2022-11-10 14:53 | disposition home or self-care (01) ==
LOC: HO.LAB 14:52
PROVIDERS: PCP Internal Medicine; Referring Provider Surgery; Visit Provider Nurse Practitioner Family
DX: D70.9 Neutropenia, unspecified (principal); R79.89 Other specified abnormal findings of blood chemistry
CPT/HCPCS: 36415; 80076; 85025; 86704; 86706; 86709; 86803; 87340

== ENCOUNTER → 2022-11-12 10:34 | Outpatient (BNVA) | payer BC, SELFPAY | PROVIDERS: PCP Internal Medicine; Visit Provider Counselor Mental Health ==

== ENCOUNTER → 2022-11-24 16:53 | Outpatient (BNVA) | payer BC, SELFPAY | PROVIDERS: PCP Internal Medicine; Visit Provider Counselor Mental Health | DX: F41.1 Generalized anxiety disorder (principal); Z98.84 Bariatric surgery status | CPT/HCPCS: 90853 ==

== ENCOUNTER 2022-11-29 07:58 | Outpatient (REF) | payer BC, SELFPAY ==
--- NOTE | ~2022-11-29 | US_ITS ---
EXAMINATION: US ABDOMEN LIMITED CLINICAL INFORMATION: Other specified abnormal findings of blood chemistry. COMPARISON: Ultrasound abdomen complete with elastography 12/31/2019. Ultrasound abdomen 03/22/2017. TECHNIQUE: Real-time imaging of the right upper quadrant abdominal viscera. FINDINGS: PANCREAS: Normal. LIVER: Normal. The liver is normal in size. The liver contour is normal. Parenchymal echogenicity is normal. No focal hepatic lesion. There is no intrahepatic biliary duct dilatation seen. GALLBLADDER: Surgically absent. COMMON BILE DUCT: Normal in caliber measuring 0.2 cm in diameter. RIGHT KIDNEY: 1.1 x 1 x 1.2 cm hyperechoic lesion in the mid to lower pole. This is similar to previous exam 2020 and probably represents a benign angiomyolipoma. No hydronephrosis or renal calculi. The kidney measures 11.4 cm in maximum dimension. FREE FLUID: None. US/US abdomen limited IMPRESSION: Stable 1 cm echogenic lesion in the mid to lower pole right kidney. This probably represents a benign angiomyolipoma. This could be confirmed with CT or MRI. Otherwise unremarkable exam.
== END 2022-11-29 07:59 | disposition home or self-care (01) ==
LOC: HO.US 07:58
PROVIDERS: Visit Provider Nurse Practitioner Family
DX: R79.89 Other specified abnormal findings of blood chemistry (principal)
CPT/HCPCS: 76705

== ENCOUNTER → 2022-12-08 15:32 | Outpatient (BNVA) | payer BC, SELFPAY | PROVIDERS: PCP Internal Medicine; Visit Provider Counselor Mental Health ==

== ENCOUNTER → 2022-12-08 15:32 | Outpatient (BNVA) | payer BC, SELFPAY | PROVIDERS: PCP Internal Medicine; Visit Provider Counselor Mental Health ==

== ENCOUNTER → 2022-12-22 14:28 | Outpatient (BNVA) | payer BC, SELFPAY | PROVIDERS: PCP Internal Medicine; Visit Provider Physician Assistant ==

== ENCOUNTER 2022-12-29 15:20 | Outpatient (AMB) | payer BC, SELFPAY ==
--- NOTE | 2022-12-30 11:07 | MHC.WMTHER ---
Intake Intake Visit Reasons: (OV) PO [facility]G 02/05/20 Allergies Iodinated Contrast Media [IV CONTRAST] Allergy (Severe, Verified 12/22/22 14:32) DIFF BREATHING/HIVES Contrast Allergy PreMed Pack Allergy (Mild, Uncoded 08/03/22 15:26) hives STATINS Adverse Reaction (Severe, Uncoded 08/03/22 15:26) myalgias PFSH Medical History (Updated 12/06/22 @ 07:52 by DEJAH Lu) Adopted Anxiety Breast asymmetry following reconstructive surgery Breast cancer screening by mammogram Eczema Intestinal malabsorption following gastrectomy Migraine Panniculitis Pre-op testing Rosacea Surgical History Bariatric surgery status H/O elbow surgery H/O shoulder surgery History of hernia surgery Hx laparoscopic cholecystectomy (2003) Hx of section (2003) Hx of knee surgery Hx of laparoscopic gastric banding Hx of umbilical hernia repair (2005) Hx of varicose vein ligation S/P laparoscopic sleeve gastrectomy (~2019) S/P TORIBIO (total abdominal hysterectomy) Status post panniculectomy Family History Father No problems noted. Mother No problems noted. Brother No problems noted. Brother No problems noted. Brother No problems noted. Daughter No problems noted. Daughter No problems noted. 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 We talked about budgeting and cutting out extra costs on unnecessary expenses. Assessment & Plan Assessment & Plan (1) Generalized anxiety disorder: Code(s): F41.1 - Generalized anxiety disorder (2) S/P laparoscopic sleeve gastrectomy: Onset Date: ~2019 Comment: January 2020 Dr. Watters Code(s): Z98.84 - Bariatric surgery status Plan Patient reported struggling with maintenance and some old habits coming back, also pressure of being model patient and then not doing as well. She has had increased in anxiety symptoms recently. She would benefit from ongoing group therapy to help identify and address root cause as well as developing healthy coping skills. Started with EMDR to address trauma from planer stone, marital issues and recent of friend. Coding Level of Care Code Psytx 45 mins (96373) Diagnoses Generalized anxiety disorder F41.1 S/P laparoscopic sleeve gastrectomy Z98.84 Time Spent (min) 45
== END 2022-12-30 11:07 | disposition home or self-care (01) ==
PROVIDERS: PCP Internal Medicine; Visit Provider Counselor Mental Health
DX: F41.1 Generalized anxiety disorder (principal); Z90.3 Acquired absence of stomach [part of]; Z98.84 Bariatric surgery status
CPT/HCPCS: 90834

== ENCOUNTER → 2022-12-29 15:20 | Outpatient (BNVA) | payer BC, SELFPAY | PROVIDERS: PCP Internal Medicine; Visit Provider Counselor Mental Health | DX: F41.1 Generalized anxiety disorder (principal); Z98.84 Bariatric surgery status | CPT/HCPCS: 90853 ==

== ENCOUNTER 2022-12-29 17:28 | Outpatient (AMB) | payer BC, SELFPAY ==
--- NOTE | 2022-12-30 14:34 | MHC.WMTHER ---
Intake Intake Visit Reasons: Group Therapy Allergies Iodinated Contrast Media [IV CONTRAST] Allergy (Severe, Verified 12/22/22 14:32) DIFF BREATHING/HIVES Contrast Allergy PreMed Pack Allergy (Mild, Uncoded 08/03/22 15:26) hives STATINS Adverse Reaction (Severe, Uncoded 08/03/22 15:26) myalgias PFSH Medical History (Updated 12/06/22 @ 07:52 by DEJAH Lu) Adopted Anxiety Breast asymmetry following reconstructive surgery Breast cancer screening by mammogram Eczema Intestinal malabsorption following gastrectomy Migraine Panniculitis Pre-op testing Rosacea Surgical History Bariatric surgery status H/O elbow surgery H/O shoulder surgery History of hernia surgery Hx laparoscopic cholecystectomy (2003) Hx of section (2003) Hx of knee surgery Hx of laparoscopic gastric banding Hx of umbilical hernia repair (2005) Hx of varicose vein ligation S/P laparoscopic sleeve gastrectomy (~2019) S/P TORIBIO (total abdominal hysterectomy) Status post panniculectomy Family History Father No problems noted. Mother No problems noted. Brother No problems noted. Brother No problems noted. Brother No problems noted. Daughter No problems noted. Daughter No problems noted. 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 Discussed handout on [employer]fing. Patient shared her success and struggles with the group. Assessment & Plan Assessment & Plan (1) Generalized anxiety disorder: Code(s): F41.1 - Generalized anxiety disorder (2) S/P laparoscopic sleeve gastrectomy: Onset Date: Comment: January 2020 Dr. Watters Code(s): Z98.84 - Bariatric surgery status Plan Patient reported struggling with maintenance and some old habits coming back, also pressure of being model patient and then not doing as well. She has had increased in anxiety symptoms recently. She would benefit from ongoing group therapy to help identify and address root cause as well as developing healthy coping skills. 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 Coding Level of Care Code Grp Psych (02229) Diagnoses Generalized anxiety disorder F41.1 S/P laparoscopic sleeve gastrectomy Z98.84 Time Spent (min) 60
== END 2022-12-30 14:34 | disposition home or self-care (01) ==
LOC: HO.HBST 17:28
PROVIDERS: PCP Internal Medicine; Visit Provider Counselor Mental Health
DX: F41.1 Generalized anxiety disorder (principal); Z98.84 Bariatric surgery status

== ENCOUNTER 2023-01-12 15:25 | Outpatient (AMB) | payer BC, SELFPAY ==
--- NOTE | 2023-01-12 16:37 | A.OFFWM_ITS ---
Intake Intake Visit Reasons: (OV) PO LSG 02/05/20 Allergies Iodinated Contrast Media [IV CONTRAST] Allergy (Severe, Verified 12/22/22 14:32) DIFF BREATHING/HIVES Contrast Allergy PreMed Pack Allergy (Mild, Uncoded 08/03/22 15:26) hives STATINS Adverse Reaction (Severe, Uncoded 08/03/22 15:26) myalgias PFSH Medical History (Updated 12/06/22 @ 07:52 by DEJAH Lu) Adopted Anxiety Breast asymmetry following reconstructive surgery Breast cancer screening by mammogram Eczema Intestinal malabsorption following gastrectomy Migraine Panniculitis Pre-op testing Rosacea Surgical History Bariatric surgery status H/O elbow surgery H/O shoulder surgery History of hernia surgery Hx laparoscopic cholecystectomy (2003) Hx of section (2003) Hx of knee surgery Hx of laparoscopic gastric banding Hx of umbilical hernia repair (2005) Hx of varicose vein ligation S/P laparoscopic sleeve gastrectomy (~2019) S/P TORIBIO (total abdominal hysterectomy) Status post panniculectomy Family History Father No problems noted. Mother No problems noted. Brother No problems noted. Brother No problems noted. Brother No problems noted. Daughter No problems noted. Daughter No problems noted. 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 She did report doing well with healthy eating. Discussed financial and marital status as well as other personal issues. Assessment & Plan Assessment & Plan (1) Generalized anxiety disorder: Code(s): F41.1 - Generalized anxiety disorder (2) S/P laparoscopic sleeve gastrectomy: Onset Date: ~2019 Comment: January 2020 Dr. Watters Code(s): Z98.84 - Bariatric surgery status Plan Patient reported struggling with maintenance and some old habits coming back, also pressure of being model patient and then not doing as well. She has had increased in anxiety symptoms recently. She would benefit from ongoing group therapy to help identify and address root cause as well as developing healthy coping skills. 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 Coding Level of Care Code Psytx 45 mins (41456) Diagnoses Generalized anxiety disorder F41.1 S/P laparoscopic sleeve gastrectomy Z98.84 Time Spent (min) 45
== END 2023-01-12 16:37 | disposition home or self-care (01) ==
PROVIDERS: PCP Internal Medicine; Visit Provider Counselor Mental Health
DX: F41.1 Generalized anxiety disorder (principal); Z98.84 Bariatric surgery status
CPT/HCPCS: 90834

== ENCOUNTER → 2023-01-12 15:25 | Outpatient (BNVA) | payer BC, SELFPAY | PROVIDERS: PCP Internal Medicine; Visit Provider Counselor Mental Health ==

== ENCOUNTER → 2023-01-26 17:00 | Outpatient (BNVA) | payer BC, SELFPAY | PROVIDERS: PCP Internal Medicine; Visit Provider Counselor Mental Health ==

== ENCOUNTER → 2023-01-26 17:00 | Outpatient (BNVA) | payer BC, SELFPAY | PROVIDERS: PCP Internal Medicine; Visit Provider Counselor Mental Health ==

== ENCOUNTER 2023-02-03 13:33 | Outpatient (AMB) | payer BC, SELFPAY ==
--- NOTE | 2023-02-03 13:37 | MHC.OFFVISWM ---
Intake VS Expanded 02/03/23 13:42 Height 5 ft 3 in Weight 149 lb 6.4 oz BMI 26.5 BP 155/70 H Blood Pressure Location Rt brachial Blood Pressure Position Sitting Pulse 52 Pulse Source Pulse Oximeter Temp 96.6 F L Temperature Source Temporal Artery Scan Pulse Oximetry 98 Oxygen Delivery Method Room Air Body Fat 53.0 Body Fat Percentage 35.5 Free Fat Mass 96.4 Muscle Mass 91.4 Visceral Mass 8.0 Water Mass 68.4 BMR 1,315 Intake Visit Reasons: (OV) [place] [facility] [place] Allergies Iodinated Contrast Media [IV CONTRAST] Allergy (Severe, Verified 12/22/22 14:32) DIFF BREATHING/HIVES Contrast Allergy PreMed Pack Allergy (Mild, Uncoded 08/03/22 15:26) hives STATINS Adverse Reaction (Severe, Uncoded 08/03/22 15:26) myalgias HPI HPI Comments History of Present Illness Details 58 yo female presents for 3 year post op follow up [place] [facility] [place]. Weight today is 149.4 with a BMI of 26.4. She completed her first 06/14 ironman November 21, (1.2 mile swim, 56 mile bike ride, 13 mile run) Feels well now. She did have 2 episodes of a viral self limited gastroenteritits Present meal plan includes: Breakfast: 2 eggs or chobani [place] yogurt Snack:? Zone perfect bar, or skip Lunch: 30g protein shake (celebrate rebuild 2 scoops w 8 oz fairlife milk) Snack:? Zone perfect bar, or mixed nuts w goldfish Dinner: 3-4 oz protein w veg pork, chicken, pulled pork plus vegetable.? Avoids carbs after dinner: ice cream bar All meals last 20 - 30 minutes and does not drink and eat at the same time. Exercise routine includes: outdoor bike 25-30 miles 3 days per week, run 3-6 miles 2 x per week, weight training 2 x per week. ? Any post op complications: none BESSY: resolved DM: never HTN: never Hyperlipidemia: resolved GERD:?0-5 scale ??0 = no symptoms ??1 = symptoms noticeable but not bothersome 2 =symptoms bothersome but not daily ? 3 = symptoms bothersome and daily 4 = symptoms affect daily activities 5 = symptoms are incapacitating, unable to do daily activities ? How bad is the heartburn: [] ? Heartburn while lying down: [] ? Heartburn when standing up: [] ? Heartburn after meals: [] ? Does heartburn change your diet: [] ? Does heartburn wake you up from sleep: [] ? Do you have difficulty swallowing: [] ? Do you have pain with swallowing: [] ? If you take medicine for your reflux, does this affect your daily life: [] Satisfaction with present condition - satisfied or not satisfied: [] [facility] Medical History (Updated 12/06/22 @ 07:52 by DEJAH Lu) Adopted Anxiety Breast asymmetry following reconstructive surgery Breast cancer screening by mammogram Eczema Intestinal malabsorption following gastrectomy Migraine Panniculitis Pre-op testing Rosacea Surgical History Bariatric surgery status H/O elbow surgery H/O shoulder surgery History of hernia surgery Hx laparoscopic cholecystectomy (2003) Hx of section (2003) Hx of knee surgery Hx of laparoscopic gastric banding Hx of umbilical hernia repair (2005) Hx of varicose vein ligation S/P laparoscopic sleeve gastrectomy (~2019) S/P TORIBIO (total abdominal hysterectomy) Status post panniculectomy Family History Father No problems noted. Mother No problems noted. Brother No problems noted. Brother No problems noted. Brother No problems noted. Daughter No problems noted. Daughter No problems noted. 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 Cognitive needs: No Hearing needs: No Vision needs: Yes (Glasses) Physical Exam Vital Signs: Last Vital Signs Temp 96.6 F L 02/03/23 13:42 Pulse 52 02/03/23 13:42 BP 155/70 H 02/03/23 13:42 Pulse Ox 98 02/03/23 13:42 Oxygen Delivery Method Room Air 02/03/23 13:42 BMI result Body Mass Index 26.5 Const General: cooperative and no acute distress Orientation/consciousness: patient oriented x3 Resp Effort & Inspection: normal respiratory effort Auscultation: clear to auscultation bilaterally Cardio Rate: regular rate Rhythm: regular rhythm GI Inspection: Yes normal to inspection and Yes incision (well healed) Palpation (GI): Soft to palpation and no masses Neuro General: patient oriented x3 Assessment & Plan Assessment & Plan (1) Overweight (BMI 25.0-29.9): Code(s): E66.3 - Overweight Plan: labs from October 2022 ok except LFTs, check vitamin levels and repeat LFTs. Continue shake and 2 meals and 1 bar. RTC 6 months Orders: Orders Vitamin B12 and Folate Today E66.3 - Overweight, K91.2 - Postsurgical malabsorption, not elsewhere classified, R79.89 - Other specified abnormal findings of blood chemistry, Z90.3 - Acquired absence of stomach [part of] Ferritin Today E66.3 - Overweight, K91.2 - Postsurgical malabsorption, not elsewhere classified, R79.89 - Other specified abnormal findings of blood chemistry, Z90.3 - Acquired absence of stomach [part of] IRON PROFILE Today E66.3 - Overweight, K91.2 - Postsurgical malabsorption, not elsewhere classified, R79.89 - Other specified abnormal findings of blood chemistry, Z90.3 - Acquired absence of stomach [part of] Lipid Panel Today E66.3 - Overweight, K91.2 - Postsurgical malabsorption, not elsewhere classified, R79.89 - Other specified abnormal findings of blood chemistry, Z90.3 - Acquired absence of stomach [part of] PTHI Today E66.3 - Overweight, K91.2 - Postsurgical malabsorption, not elsewhere classified, R79.89 - Other specified abnormal findings of blood chemistry, Z90.3 - Acquired absence of stomach [part of] Vitamin A Today E66.3 - Overweight, K91.2 - Postsurgical malabsorption, not elsewhere classified, R79.89 - Other specified abnormal findings of blood chemistry, Z90.3 - Acquired absence of stomach [part of] Vitamin B1 Today E66.3 - Overweight, K91.2 - Postsurgical malabsorption, not elsewhere classified, R79.89 - Other specified abnormal findings of blood chemistry, Z90.3 - Acquired absence of stomach [part of] Vitamin D 25-OH Total Today E66.3 - Overweight, K91.2 - Postsurgical malabsorption, not elsewhere classified, R79.89 - Other specified abnormal findings of blood chemistry, Z90.3 - Acquired absence of stomach [part of] Zinc Today E66.3 - Overweight, K91.2 - Postsurgical malabsorption, not elsewhere classified, R79.89 - Other specified abnormal findings of blood chemistry, Z90.3 - Acquired absence of stomach [part of] Liver Panel Today E66.3 - Overweight, K91.2 - Postsurgical malabsorption, not elsewhere classified, R79.89 - Other specified abnormal findings of blood chemistry, Z90.3 - Acquired absence of stomach [part of] Coding Level of Care Code Est Pt Level 4 (53891) Diagnoses Overweight (BMI 25.0-29.9) E66.3 Time Spent (min) 40
[2023-02-03 13:42] VITALS: BP 155/70; PULSE 52; TEMP 35.9; O2SAT 98; BMI 26.5
== END 2023-02-03 14:14 | disposition home or self-care (01) ==
PROVIDERS: PCP Internal Medicine; Visit Provider Physician Assistant Surgical
DX: E66.3 Overweight (principal); Z68.26 Body mass index [BMI] 26.0-26.9, adult; Z90.3 Acquired absence of stomach [part of]; Z98.84 Bariatric surgery status
CPT/HCPCS: 99214

== ENCOUNTER → 2023-02-03 13:33 | Outpatient (BNVA) | payer BC, SELFPAY | PROVIDERS: PCP Internal Medicine; Visit Provider Physician Assistant Surgical ==

== ENCOUNTER 2023-02-05 08:34 | Outpatient (REF) | payer BC, SELFPAY ==
[2023-02-05 10:16] LABS: Alanine Aminotransferase 20 U/L (0-31); Albumin Level 4.1 g/dL (3.5-5.0); Alkaline Phosphatase 78 U/L (39-117); Aspartate Amino Transferase 27 U/L (5-31); Bilirubin Direct 0.2 mg/dL (0.0-0.5); Bilirubin Total 0.5 mg/dL (0.0-1.0); Cholesterol 197 mg/dL (<200); HDL Cholesterol 75 mg/dL (>40); Iron 93 mcg/dL (30-160); LDL Cholesterol Calculated 111 mg/dL (<100); Percent Iron Saturation 32 % (15-50); Total Iron Binding Capacity 294 mcg/dL (228-428); Total Protein 6.9 g/dL (6.5-8.0); Triglycerides 55 mg/dL (<150); Unsaturated Iron Binding 201 ug/dL
[2023-02-05 10:39] LABS: Ferritin 52 ng/mL (10-250); Vitamin D 25-OH Total 71.5 ng/mL (>30)
[2023-02-05 10:42] LABS: Folate 15.7 ng/mL (> or = 4.0); Vitamin B12 1423 pg/mL (200-900)
[2023-02-07 11:29] LABS: Calcium (PTHI) 9.5 mg/dL (8.6-10.4); PTHI 48 pg/mL (16-77)
[2023-02-09 00:17] LABS: Zinc 75 mcg/dL (60-130)
[2023-02-10 02:18] LABS: Vitamin A 49 mcg/dL (38-98)
[2023-02-10 16:33] LABS: Vitamin B1 21 nmol/L (8-30)
== END 2023-02-05 08:35 | disposition home or self-care (01) ==
LOC: HO.LAB 08:34
PROVIDERS: PCP Internal Medicine; Visit Provider Physician Assistant Surgical
DX: E66.3 Overweight (principal); K91.2 Postsurgical malabsorption, not elsewhere classified; R79.89 Other specified abnormal findings of blood chemistry; Z90.3 Acquired absence of stomach [part of]
CPT/HCPCS: 36415; 80061; 80076; 82306; 82607; 82728; 82746; 83540; 83970; 84425; 84590; 84630

== ENCOUNTER → 2023-02-09 19:57 | Outpatient (BNVA) | payer BC, SELFPAY | PROVIDERS: PCP Internal Medicine; Visit Provider Counselor Mental Health ==

== ENCOUNTER 2023-02-16 19:06 | Outpatient (AMB) | payer BC, SELFPAY ==
--- NOTE | 2023-02-23 15:10 | A.OFFWM_ITS ---
Intake Intake Visit Reasons: Group Therapy Allergies Iodinated Contrast Media [IV CONTRAST] Allergy (Severe, Verified 12/22/22 14:32) DIFF BREATHING/HIVES Contrast Allergy PreMed Pack Allergy (Mild, Uncoded 08/03/22 15:26) hives STATINS Adverse Reaction (Severe, Uncoded 08/03/22 15:26) myalgias PFSH Medical History (Updated 02/18/23 @ 12:13 by DEJAH Lu) Bilateral renal cysts Breast cancer screening by mammogram Pre-op testing Rosacea Panniculitis Breast asymmetry following reconstructive surgery Adopted Intestinal malabsorption following gastrectomy Migraine Anxiety Eczema Surgical History Hx of varicose vein ligation History of hernia surgery Status post panniculectomy Bariatric surgery status Hx of knee surgery S/P laparoscopic sleeve gastrectomy (~2019) Hx of section (2003) Hx of laparoscopic gastric banding Hx of umbilical hernia repair (2005) S/P TORIBIO (total abdominal hysterectomy) Hx laparoscopic cholecystectomy (2003) H/O elbow surgery H/O shoulder surgery Family History Father No problems noted. Mother No problems noted. Brother No problems noted. Brother No problems noted. Brother No problems noted. Daughter No problems noted. Daughter No problems noted. 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 Patient shared appropriately and offered support to others. (past report) Patient requested appt due to recent increase in anxiety symptoms. She stated that she feels overwhelmed and perhaps could be due to triathlon training as well as other stressors (poor sleep, anniversary of friends , work stress). Presenting Concerns Referral Source self Reason for referral anxiety Precipitating Event stressors Food/Weight/Diet History/Relationship with food Pt reported that prior to surgery she ate what she wanted, she does not do well with cooking, she would eat fast food. History/Relationship with weight Pt reported that in college she started to gain weight. She was an athlete and then eating poorly and drinking started to have negative affect History/Relationship with dieting Pt had gastric sleeve in 2019 and has lost a total of 90lbs. Pt reported that she has gained about 20lbs in the past few years. Pt also had lap band years ago from [facility]. Social History Family history and relationship Pt reported that she grew up with an overcritical mother, who set high standards and was very restrictive and about appearances. Mary is one of 4, the only girl of 4 boys, and was adopted as a . Pt has been for 24 years and they have two adult children Parental/Familial business services sales representative obligations She has adult children, one teenager who lives at home. Assessment & Plan Assessment & Plan (1) Generalized anxiety disorder: Code(s): F41.1 - Generalized anxiety disorder (2) S/P laparoscopic sleeve gastrectomy: Onset Date: ~2019 Comment: January 2020 Dr. Watters Code(s): Z98.84 - Bariatric surgery status Plan Patient reported struggling with maintenance and some old habits coming back, also pressure of being model patient and then not doing as well. She has had increased in anxiety symptoms recently. She would benefit from ongoing group therapy to help identify and address root cause as well as developing healthy coping skills. 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 Coding Level of Care Code Grp Psych (83995) Diagnoses Generalized anxiety disorder F41.1 S/P laparoscopic sleeve gastrectomy Z98.84 Time Spent (min) 60
== END 2023-02-18 09:56 | disposition home or self-care (01) ==
LOC: HO.HBST 19:06
PROVIDERS: PCP Internal Medicine; Visit Provider Counselor Mental Health
DX: F41.1 Generalized anxiety disorder (principal); Z98.84 Bariatric surgery status

== ENCOUNTER → 2023-02-16 19:06 | Outpatient (BNVA) | payer BC, SELFPAY | PROVIDERS: PCP Internal Medicine; Visit Provider Counselor Mental Health | DX: F41.1 Generalized anxiety disorder (principal); Z98.84 Bariatric surgery status | CPT/HCPCS: 90853 ==

== ENCOUNTER 2023-02-17 15:11 | Outpatient (REF) | payer BC, SELFPAY ==
--- NOTE | ~2023-02-17 | MR_ITS ---
EXAMINATION: MR ABDOMEN WITHOUT AND WITH CONTRAST CLINICAL INFORMATION: Disorders of the kidneys and ureters COMPARISON: Abdominal ultrasound 11/29/2022 TECHNIQUE: MRI of the abdomen before and after the IV administration of 7 mL of Gadavist was obtained using routine sequences. FINDINGS: LUNG BASES: The visualized lung bases are unremarkable. KIDNEYS AND URETERS: Bosniak 1 benign-appearing bilateral renal cysts, no imaging follow-up recommended. No suspicious solid renal mass or definite MR correlate to the suspected sonographic finding. GALLBLADDER: Status post cholecystectomy. LIVER AND BILIARY TREE: No loss of signal on opposed phase imaging to suggest hepatic steatosis. PANCREAS: A 4 mm cyst in the pancreatic tail without solid components or pancreatic duct dilatation, 4:13. SPLEEN: Unremarkable ADRENAL GLANDS: Unremarkable GASTROINTESTINAL TRACT: Small hiatal hernia. Colonic diverticulosis without evidence of diverticulitis. LYMPH NODES: No lymphadenopathy. VASCULAR: Unremarkable ABDOMINAL WALL: Unremarkable. OSSEOUS STRUCTURES: Unremarkable. MR/MR abdomen wo/w con IMPRESSION: 1. Bosniak 1 benign-appearing bilateral renal cysts, no imaging follow-up recommended. No suspicious solid renal mass or definite MR correlate to the suspected sonographic finding. 2. A 4 mm cyst in the pancreatic tail without solid components or pancreatic duct dilatation, possibly a small side branch IPMN. Per ACR white paper on management of incidental pancreatic cysts, recommend annual follow-up contrast enhanced MR/MRCP to assess stability. 3. Small hiatal hernia. 4. Colonic diverticulosis without evidence of diverticulitis.
[2023-02-17] MEDS: gadobutroL 7.5 ML VIAL IVPUSH (16:19)
== END 2023-02-17 15:12 | disposition home or self-care (01) ==
LOC: HO.MRI 15:11
PROVIDERS: PCP Internal Medicine; Visit Provider Nurse Practitioner Family
DX: N28.9 Disorder of kidney and ureter, unspecified (principal)
CPT/HCPCS: 74183; A9585

== ENCOUNTER → 2023-03-09 19:07 | Outpatient (BNVA) | payer BC, SELFPAY | PROVIDERS: PCP Internal Medicine; Visit Provider Counselor Mental Health ==

== ENCOUNTER 2023-03-14 12:55 | Outpatient (AMB) | payer BC, SELFPAY ==
--- NOTE | 2023-03-14 13:57 | A.OFFWM_ITS ---
Intake Intake Visit Reasons: (OV) PO LSG 02/05/20 Allergies Iodinated Contrast Media [IV CONTRAST] Allergy (Severe, Verified 12/22/22 14:32) DIFF BREATHING/HIVES Contrast Allergy PreMed Pack Allergy (Mild, Uncoded 08/03/22 15:26) hives STATINS Adverse Reaction (Severe, Uncoded 08/03/22 15:26) myalgias PFSH Medical History (Updated 02/18/23 @ 12:13 by DEJAH Lu) Bilateral renal cysts Breast cancer screening by mammogram Pre-op testing Rosacea Panniculitis Breast asymmetry following reconstructive surgery Adopted Intestinal malabsorption following gastrectomy Migraine Anxiety Eczema Surgical History Hx of varicose vein ligation History of hernia surgery Status post panniculectomy Bariatric surgery status Hx of knee surgery S/P laparoscopic sleeve gastrectomy (~2019) Hx of section (2003) Hx of laparoscopic gastric banding Hx of umbilical hernia repair (2005) S/P TORIBIO (total abdominal hysterectomy) Hx laparoscopic cholecystectomy (2003) H/O elbow surgery H/O shoulder surgery Family History Father No problems noted. Mother No problems noted. Brother No problems noted. Brother No problems noted. Brother No problems noted. Daughter No problems noted. Daughter No problems noted. 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 She feels tightness in her chest, we practiced 4-4-8 breathing. Also discussed recent lack of interest in exercise due to no direction/goals. (past report) Patient requested appt due to recent increase in anxiety symptoms. She stated that she feels overwhelmed and perhaps could be due to triathlon training as well as other stressors (poor sleep, anniversary of friends , work stress). Presenting Concerns Referral Source self Reason for referral anxiety Precipitating Event stressors Food/Weight/Diet History/Relationship with food Pt reported that prior to surgery she ate what she wanted, she does not do well with cooking, she would eat fast food. History/Relationship with weight Pt reported that in college she started to gain weight. She was an athlete and then eating poorly and drinking started to have negative affect History/Relationship with dieting Pt had gastric sleeve in 2019 and has lost a total of 90lbs. Pt reported that she has gained about 20lbs in the past few years. Pt also had lap band years ago from [facility]. Social History Family history and relationship Pt reported that she grew up with an overcritical mother, who set high standards and was very restrictive and about appearances. Mary is one of 4, the only girl of 4 boys, and was adopted as a . 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 Assessment & Plan Assessment & Plan (1) Generalized anxiety disorder: Code(s): F41.1 - Generalized anxiety disorder (2) S/P laparoscopic sleeve gastrectomy: Onset Date: ~2019 Comment: January 2020 Dr. Watters Code(s): Z98.84 - Bariatric surgery status Plan Patient reported struggling with maintenance and some old habits coming back, also pressure of being model patient and then not doing as well. She has had increased in anxiety symptoms recently. She would benefit from ongoing group therapy to help identify and address root cause as well as developing healthy coping skills. 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 Coding Level of Care Code Psytx 45 mins (21581) Diagnoses Generalized anxiety disorder F41.1 S/P laparoscopic sleeve gastrectomy Z98.84 Time Spent (min) 40
== END 2023-03-14 13:53 | disposition home or self-care (01) ==
PROVIDERS: PCP Internal Medicine; Visit Provider Counselor Mental Health
DX: F41.1 Generalized anxiety disorder (principal); Z98.84 Bariatric surgery status
CPT/HCPCS: 90834

== ENCOUNTER → 2023-03-14 12:55 | Outpatient (BNVA) | payer BC, SELFPAY | PROVIDERS: PCP Internal Medicine; Visit Provider Counselor Mental Health ==

== ENCOUNTER 2023-03-23 19:28 | Outpatient (AMB) | payer BC, SELFPAY ==
--- NOTE | 2023-03-24 13:10 | MHC.WMTHER ---
Intake Intake Visit Reasons: Group Therapy Allergies Iodinated Contrast Media [IV CONTRAST] Allergy (Severe, Verified 12/22/22 14:32) DIFF BREATHING/HIVES Contrast Allergy PreMed Pack Allergy (Mild, Uncoded 08/03/22 15:26) hives STATINS Adverse Reaction (Severe, Uncoded 08/03/22 15:26) myalgias PFSH Medical History (Updated 02/18/23 @ 12:13 by DEJAH Lu) Bilateral renal cysts Breast cancer screening by mammogram Pre-op testing Rosacea Panniculitis Breast asymmetry following reconstructive surgery Adopted Intestinal malabsorption following gastrectomy Migraine Anxiety Eczema Surgical History Hx of varicose vein ligation History of hernia surgery Status post panniculectomy Bariatric surgery status Hx of knee surgery S/P laparoscopic sleeve gastrectomy (~2019) Hx of section (2003) Hx of laparoscopic gastric banding Hx of umbilical hernia repair (2005) S/P TORIBIO (total abdominal hysterectomy) Hx laparoscopic cholecystectomy (2003) H/O elbow surgery H/O shoulder surgery Family History Father No problems noted. Mother No problems noted. Brother No problems noted. Brother No problems noted. Brother No problems noted. Daughter No problems noted. Daughter No problems noted. 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 Patient shard with group about her recent struggles with fitness and how she let fear and ego get in the way when she did not do well during a ride. This caused her to stop riding and recently pushed herself to begin exercising again despite negative thoughts. She shared that she is learning to stop comparing her journey to where she was prior. (past report) Patient requested appt due to recent increase in anxiety symptoms. She stated that she feels overwhelmed and perhaps could be due to triathlon training as well as other stressors (poor sleep, anniversary of friends , work stress). Presenting Concerns Referral Source self Reason for referral anxiety Precipitating Event stressors Food/Weight/Diet History/Relationship with food Pt reported that prior to surgery she ate what she wanted, she does not do well with cooking, she would eat fast food. History/Relationship with weight Pt reported that in college she started to gain weight. She was an athlete and then eating poorly and drinking started to have negative affect History/Relationship with dieting Pt had gastric sleeve in 2019 and has lost a total of 90lbs. Pt reported that she has gained about 20lbs in the past few years. Pt also had lap band [facility] ago from [facility]. Social History Family history and relationship Pt reported that she grew up with an overcritical mother, who set high standards and was very restrictive and about appearances. Mary is one of 4, the only girl of 4 boys, and was adopted as a . 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 Assessment & Plan Assessment & Plan (1) Generalized anxiety disorder: Code(s): F41.1 - Generalized anxiety disorder (2) S/P laparoscopic sleeve gastrectomy: Onset Date: ~2019 Comment: January 2020 Dr. Watters Code(s): Z98.84 - Bariatric surgery status Plan Patient reported struggling with maintenance and some old habits coming back, also pressure of being model patient and then not doing as well. She has had increased in anxiety symptoms recently. She would benefit from ongoing group therapy to help identify and address root cause as well as developing healthy coping skills. 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 Coding Level of Care Code Grp Psych (41129) Diagnoses Generalized anxiety disorder F41.1 S/P laparoscopic sleeve gastrectomy Z98.84 Time Spent (min) 60
== END 2023-03-24 13:10 | disposition home or self-care (01) ==
LOC: HO.HBST 19:28
PROVIDERS: PCP Internal Medicine; Visit Provider Counselor Mental Health
DX: F41.1 Generalized anxiety disorder (principal); Z98.84 Bariatric surgery status

== ENCOUNTER → 2023-03-23 19:28 | Outpatient (BNVA) | payer BC, SELFPAY | PROVIDERS: PCP Internal Medicine; Visit Provider Counselor Mental Health | DX: F41.1 Generalized anxiety disorder (principal); Z98.84 Bariatric surgery status | CPT/HCPCS: 90853 ==

== ENCOUNTER → 2023-03-30 17:00 | Outpatient (BNVA) | payer BC, SELFPAY | PROVIDERS: PCP Internal Medicine; Visit Provider Counselor Mental Health | DX: F41.1 Generalized anxiety disorder (principal); Z98.84 Bariatric surgery status ==

== ENCOUNTER 2023-04-06 19:01 | Outpatient (AMB) | payer BC, SELFPAY ==
--- NOTE | 2023-04-07 09:16 | A.OFFWM_ITS ---
Intake Intake Visit Reasons: Group Therapy Allergies Iodinated Contrast Media [IV CONTRAST] Allergy (Severe, Verified 12/22/22 14:32) DIFF BREATHING/HIVES Contrast Allergy PreMed Pack Allergy (Mild, Uncoded 08/03/22 15:26) hives STATINS Adverse Reaction (Severe, Uncoded 08/03/22 15:26) myalgias PFSH Medical History (Updated 02/18/23 @ 12:13 by DEJAH Lu) Bilateral renal cysts Breast cancer screening by mammogram Pre-op testing Rosacea Panniculitis Breast asymmetry following reconstructive surgery Adopted Intestinal malabsorption following gastrectomy Migraine Anxiety Eczema Surgical History Hx of varicose vein ligation History of hernia surgery Status post panniculectomy Bariatric surgery status Hx of knee surgery S/P laparoscopic sleeve gastrectomy (~2019) Hx of section (2003) Hx of laparoscopic gastric banding Hx of umbilical hernia repair (2005) S/P TORIBIO (total abdominal hysterectomy) Hx laparoscopic cholecystectomy (2003) H/O elbow surgery H/O shoulder surgery Family History Father No problems noted. Mother No problems noted. Brother No problems noted. Brother No problems noted. Brother No problems noted. Daughter No problems noted. Daughter No problems noted. 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 Patient was cooperative, engaged, and supportive to others. (past report) Patient requested appt due to recent increase in anxiety symptoms. She stated that she feels overwhelmed and perhaps could be due to triathlon training as well as other stressors (poor sleep, anniversary of friends , work stress). Presenting Concerns Referral Source self Reason for referral anxiety Precipitating Event stressors Food/Weight/Diet History/Relationship with food Pt reported that prior to surgery she ate what she wanted, she does not do well with cooking, she would eat fast food. History/Relationship with weight Pt reported that in college she started to gain weight. She was an athlete and then eating poorly and drinking started to have negative affect History/Relationship with dieting Pt had gastric sleeve in 2019 and has lost a total of 90lbs. Pt reported that she has gained about 20lbs in the past few years. Pt also had lap band years ago from [facility]. Social History Family history and relationship Pt reported that she grew up with an overcritical mother, who set high standards and was very restrictive and about appearances. Mary is one of 4, the only girl of 4 boys, and was adopted as a . 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 Assessment & Plan Assessment & Plan (1) Generalized anxiety disorder: Code(s): F41.1 - Generalized anxiety disorder (2) S/P laparoscopic sleeve gastrectomy: Onset Date: ~2019 Comment: January 2020 Dr. Watters Code(s): Z98.84 - Bariatric surgery status Plan Patient reported struggling with maintenance and some old habits coming back, also pressure of being model patient and then not doing as well. She has had increased in anxiety symptoms recently. She would benefit from ongoing group therapy to help identify and address root cause as well as developing healthy coping skills. 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 Coding Level of Care Code Grp Psych (05978) Diagnoses Generalized anxiety disorder F41.1 S/P laparoscopic sleeve gastrectomy Z98.84 Time Spent (min) 60
== END 2023-04-07 09:16 | disposition home or self-care (01) ==
LOC: HO.HBST 19:01
PROVIDERS: PCP Internal Medicine; Visit Provider Counselor Mental Health
DX: F41.1 Generalized anxiety disorder (principal); Z98.84 Bariatric surgery status

== ENCOUNTER → 2023-04-06 19:01 | Outpatient (BNVA) | payer BC, SELFPAY | PROVIDERS: PCP Internal Medicine; Visit Provider Counselor Mental Health | DX: F41.1 Generalized anxiety disorder (principal); Z98.84 Bariatric surgery status | CPT/HCPCS: 90853 ==

== ENCOUNTER → 2023-04-13 18:59 | Outpatient (BNVA) | payer BC, SELFPAY | PROVIDERS: PCP Internal Medicine; Visit Provider Counselor Mental Health | DX: F41.1 Generalized anxiety disorder (principal); Z98.84 Bariatric surgery status ==

== ENCOUNTER → 2023-04-13 18:59 | Outpatient (BNVA) | payer BC, SELFPAY | PROVIDERS: PCP Internal Medicine; Visit Provider Counselor Mental Health | DX: F41.1 Generalized anxiety disorder (principal); Z98.84 Bariatric surgery status ==

== ENCOUNTER → 2023-05-18 19:01 | Outpatient (BNVA) | payer BC, SELFPAY | PROVIDERS: PCP Internal Medicine; Visit Provider Counselor Mental Health | DX: F41.1 Generalized anxiety disorder (principal); Z98.84 Bariatric surgery status ==

== ENCOUNTER 2023-05-19 14:48 | Outpatient (AMB) | payer BC, SELFPAY ==
--- NOTE | 2023-05-19 15:05 | A.OFFVIS_ITS ---
Intake VS Expanded 05/20/23 15:26 Height 5 ft 3 in Weight 156 lb BMI 27.6 Body Fat % 38.3 Body Fat Mass 59.8 Fat Free Mass 96.4 Visceral Fat Rating 9 Body Water % 43.8 Body Water Mass 68.4 Muscle Mass/Score 91.4 Basal Metabolic Rate/Score 1,327 Intake Visit Reasons: (OV) PO LSG 02/05/20 Allergies Iodinated Contrast Media [IV CONTRAST] Allergy (Severe, Verified 12/22/22 14:32) DIFF BREATHING/HIVES Contrast Allergy PreMed Pack Allergy (Mild, Uncoded 08/03/22 15:26) hives STATINS Adverse Reaction (Severe, Uncoded 08/03/22 15:26) myalgias HPI Nutrition Presentation Details [facility] 02/05/2020 Lowest weight after surgery (09/23/20) 129# Weight Jul 05 148# Reason for consult elevated BMI Diet Assmnt Details 24 hour recall: starbucks egg white bites and starbucks refresher (high sugar) 10am chobani yogurt w granola or a zone bar 12:30 celebrate rebuild shake with fairl raimundo milk 33g protein 3pm usually goldfish or lay crackers - somewhat mindless eating, very hungry ,tired, stressed sometimes 7pm dinner - no flexibility regarding th is time, cooks. last night was chicken and veg She reports a lot of sweets, fast food , unplanned eating, increased cravings - resulted in 10# weight gain since last appt. 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 also going to groups consist Exercise: pt is very committed to her exercise, may not be consistent but does get back into it when she has been away form the gym. Diagnosis Nutrition problem #1 overweight/obesity As related to (etiology) #1 excess energy intake and physical inactivity As evidenced by (sign/symptom) #1 high BMI Monitoring/Goals Nutrition problem monitoring total energy intake, level of knowledge/skill, total PRO intake, total CHO intake and weight Outcome progress progressing Learning/Education Readiness to learn excellent Stages of change action Educational materials provided Yes Most Recent Diabetes Results: No Data to Display [facility] Medical History (Updated 05/03/23 @ 23:14 by Cipriano Frost MD) Bilateral renal cysts Breast cancer screening by mammogram Pre-op testing Rosacea Panniculitis Breast asymmetry following reconstructive surgery Adopted Intestinal malabsorption following gastrectomy Migraine Anxiety Eczema Surgical History Hx of varicose vein ligation History of hernia surgery Status post panniculectomy Bariatric surgery status Hx of knee surgery S/P laparoscopic sleeve gastrectomy (~2019) Hx of section (2003) Hx of laparoscopic gastric banding Hx of umbilical hernia repair (2005) S/P TORIBIO (total abdominal hysterectomy) Hx laparoscopic cholecystectomy (2003) H/O elbow surgery H/O shoulder surgery Family History Father No problems noted. Mother No problems noted. Brother No problems noted. Brother No problems noted. Brother No problems noted. Daughter No problems noted. Daughter No problems noted. 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 We discussed various ways to achieve this Coding Level of Care Code Nutr Indiv Subseq (77657) Diagnoses Overweight (BMI 25.0-29.9) E66.3 Time Spent (min) 30
[2023-05-20 15:26] VITALS: BMI 27.6
== END 2023-05-19 16:13 | disposition home or self-care (01) ==
PROVIDERS: PCP Internal Medicine; Visit Provider Dietitian, Registered
DX: E66.3 Overweight (principal)

== ENCOUNTER → 2023-05-19 14:48 | Outpatient (BNVA) | payer BC, SELFPAY | PROVIDERS: PCP Internal Medicine; Visit Provider Dietitian, Registered | DX: E66.3 Overweight (principal); Z68.27 Body mass index [BMI] 27.0-27.9, adult; Z98.84 Bariatric surgery status; Z71.3 Dietary counseling and surveillance | CPT/HCPCS: 97803 ==

== ENCOUNTER 2023-05-24 14:47 | Outpatient (AMB) | payer BC, SELFPAY ==
--- NOTE | 2023-05-24 15:11 | MHC.PC.OV ---
Vital Signs 05/24/23 15:14 Height 5 ft 3 in Weight 159 lb 4 oz BMI 28.2 BP 130/70 Blood Pressure Location Lt brachial Position Sitting Pulse 47 L Pulse Source Pulse Oximeter Pulse Oximetry (%) 97 Oxygen Delivery Method Room Air Intake Visit Reasons: pe Intake Note: Patient is here today for a physical. Military Equipment Specialist Required: No Laborer Yard: Not Required per policy Accompanied by: Self / Same As Patient Allergies Iodinated Contrast Media [IV CONTRAST] Allergy (Severe, Verified 05/24/23 15:12) DIFF BREATHING/HIVES Contrast Allergy PreMed Pack Allergy (Mild, Uncoded 05/24/23 15:12) hives STATINS Adverse Reaction (Severe, Uncoded 05/24/23 15:12) myalgias Medication List - Last Reconciled 05/24/23 by Cipriano Frost MD calcium carbonate-vitamin D3 600 mg-10 mcg (400 unit) (Calcium 600 + D(3)) 1 tab PO DAILY lorazepam 0.5 mg PO DAILY PRN magnesium 250 mg PO DAILY multivitamin (Multiple Vitamins tablet) 1 tab PO DAILY trazodone 50 mg PO BEDTIME PRN Tobacco use date assessed: 05/24/23 Dental Screening Dental Screen Date: 05/24/23 Did you have a dental visit in the last 12 months?: Yes Did you have a dental problem in the last 6 months where you did not have access to dental care?: No Was dental information given to patient?: Patient has dentist HPI pe HPI Details 58-year-old overweight female with a history of laparoscopic sleeve gastrectomy in 2019 generalized anxiety disorder GERD coming in for physical exam last seen in July 2022. Mammogram is due. Review of the notes in February 2023 had an MRI of the abdomen noted to have [place] at 1 benign-appearing bilateral renal cyst a pancreatic tail cyst without solid components or pancreatic duct dilatation advised annual follow-up with an MRI/MRCP small hiatal hernia [facility] Medical History (Updated 05/24/23 @ 16:00 by Cipriano Frost MD) Colon cancer screening Bilateral renal cysts Breast cancer screening by mammogram Pre-op testing Rosacea Panniculitis Breast asymmetry following reconstructive surgery Adopted Intestinal malabsorption following gastrectomy Migraine Anxiety Eczema Surgical History Hx of varicose vein ligation History of hernia surgery Status post panniculectomy Bariatric surgery status Hx of knee surgery S/P laparoscopic sleeve gastrectomy (~2019) Hx of section (2003) Hx of laparoscopic gastric banding Hx of umbilical hernia repair (2005) S/P TORIBIO (total abdominal hysterectomy) Hx laparoscopic cholecystectomy (2003) H/O elbow surgery H/O shoulder surgery Family History Father No problems noted. Mother No problems noted. Brother No problems noted. Brother No problems noted. Brother No problems noted. Daughter No problems noted. Daughter No problems noted. 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 Toni Kay, Cande Conn, Michael Guajardo and colleagues, with an educational amado from [employer]. Review of Systems Const Denies poor appetite and Denies weakness Eyes Denies no additional complaints ENT Reports Normal hearing present, Denies dizziness, Denies nasal congestion, Denies tinnitus and Denies sore throat Card Denies chest pain, Denies syncope, Denies rapid heart rate and Denies dyspnea Resp Denies cough and Denies dyspnea GI Denies change in stool character, Reports constipation, Denies diarrhea, Denies nausea and Denies vomiting Denies urinary frequency, Denies difficulty voiding and Denies dysuria Neuro Reports Normal hearing present, Denies confusion, Denies dizziness, Denies syncope and Denies weakness Psych Denies confusion Physical exam (Primary Care) Vital Signs: Last Vital Signs Pulse 47 L 05/24/23 15:14 BP 130/70 05/24/23 15:14 Pulse Ox 97 05/24/23 15:14 Oxygen Delivery Method Room Air 05/24/23 15:14 BMI result Body Mass Index 28.2 Tobacco/Smoking Status: Tobacco use Status Tobacco use date assessed 05/24/23 05/24/23 15:20 Patient Tobacco Use Status Never used Tobacco 05/24/23 15:20 e-Cigarette/Vaping Use Never Used 05/24/23 15:20 Thrive Assessment: Date of Thrive Assessment Date Thrive assessed 08/03/22 05/24/23 15:20 Const General: No confusion Orientation/consciousness: No confusion HENMT Head: Yes normocephalic Ears: external ears normal and TM's normal bilaterally Face and sinus: Yes normal facial exam Mouth: moist mucous membranes Throat: Yes tonsils normal Eyes Conjunctivae: conjunctivae normal Pupils: Equal, round and reactive pupils present and Pupil accommodation reflex normal Direct Ophthalmoscopy: normal light reflex Neck Neck: No lymphadenopathy Thyroid: Thyroid normal Chest Chest palpation & inspection: normal inspection of the chest Resp Effort & Inspection: normal respiratory effort and no audible wheezes Auscultation: clear to auscultation bilaterally, no crackles, no wheezes and lung sounds not diminished Cardio Rate: regular rate Rhythm: regular rhythm Peripheral pulses: radial pulses present and dorsalis pedis present GI Palpation (GI): no masses Auscultation: normal bowel sounds and normoactive bowel sounds Rectal Exam - Female: deferred Skin General skin exam: no rashes or lesions noted Rashes: no rashes Neuro General: No confusion Cranial nerves: Yes Equal, round and reactive pupils present and Yes Normal hearing present Cognition (Neuro): normal cognition Gait exam (Neuro): Normal gait present Motor exam (neuro): 5/5 motor strength present throughout Deep tendon reflexes (DTR's): Right brachioradialis reflex intensity grade: 2+, Left brachioradialis reflex intensity grade: 2+, Right patellar reflex intensity grade: 2+ and Left patellar reflex intensity grade: 2+ Extrem General: No edema Office Procedures Flu Questionnaire Does the patient have a severe egg allergy?: No Does the patient have severe life threatening allergies?: No Does the patient have a fever or illness today?: No Has the patient ever had Guillain-Regina Syndrome?: No Has the patient ever had any past reaction to a flu shot?: No Immunizations flu vacc [id number] 6mos up(PF) 60 mcg(15 mcgx4)/0.5 mL IM syringe Performing Provider: Cipriano Frost MD Per[facility] [place] [facility] Administered by: ZAKI Torres on 05/24/23 15:29 Dose Route Admin Location Dispensed Lot Number Expiration Date NDC Aged Or Disabled Care Worker 0.5 mL IM Left Deltoid 0.5 mL [id number] 12/11/23 [id number] [employer] VIS Given Date VIS Provided VIS Publication Date 05/24/23 Single Vaccine 21 Eligibility Eligibility Date Funding Source Not VF Eligible 05/24/23 Private Assessment and Plan Assessment & Plan (1) Annual physical exam: Code(s): Z00.00 - Encounter for general adult medical examination without abnormal findings (2) Pancreatic cyst: Comment: February 2023 yearly MRI Code(s): K86.2 - Cyst of pancreas Plan: Incidental finding will request an MRI next year (3) S/P laparoscopic sleeve gastrectomy: Onset Date: Comment: January 2020 Dr. Watters Code(s): Z98.84 - Bariatric surgery status Plan: Continue to follow-up with weight management (4) Generalized anxiety disorder: Code(s): F41.1 - Generalized anxiety disorder Plan: Continue with medication as needed (5) GERD (gastroesophageal reflux disease): Code(s): K21.9 - Gastro-esophageal reflux disease without esophagitis Plan: Avoid the foods that causes that usually spicy foods, tomato products, juices, coffee, soda and foods that your sensitive to. After eating do not lie down, allow 3-4 hours before in lie down. And keep the head of bed above 30 degrees to avoid the acid from going up. (6) Cervical cancer screening: Code(s): Z12.4 - Encounter for screening for malignant neoplasm of cervix Orders: Orders Influenza [id number] Immunization Today Z23 - Encounter for immunization Referrals [employer]ER Referral Z12.4 - Encounter for screening for malignant neoplasm of cervix Medications: Refilled trazodone 50 mg PO BEDTIME PRN 90 tabs 1RF sleep G47.00 - Insomnia, unspecified lorazepam 0.5 mg PO DAILY PRN 30 tabs 0RF anxiety F41.9 - Anxiety disorder, unspecified Coding Level of Care Code Est Pt Prev Care 40-64y(95444) Diagnoses Annual physical exam Z00.00 Pancreatic cyst K86.2 S/P laparoscopic sleeve gastrectomy Z98.84 Generalized anxiety disorder F41.1 GERD (gastroesophageal reflux disease) K21.9 Cervical cancer screening Z12.4
[2023-05-24 15:14] VITALS: BP 130/70; PULSE 47; O2SAT 97; BMI 28.2
== END 2023-05-24 16:06 | disposition home or self-care (01) ==
PROVIDERS: Visit Provider Internal Medicine
DX: Z00.00 Encounter for general adult medical examination without abnormal findings (principal); K86.2 Cyst of pancreas; Z98.84 Bariatric surgery status; Z23 Encounter for immunization; F41.1 Generalized anxiety disorder; K21.9 Gastro-esophageal reflux disease without esophagitis
CPT/HCPCS: 90471; 90686; 99396

== ENCOUNTER 2023-05-27 14:47 | Outpatient (REF) | payer BC, SELFPAY | END 2023-05-27 14:48 | disposition home or self-care (01) | LOC: HO.MAMMO 14:47 | PROVIDERS: PCP Internal Medicine; Visit Provider Internal Medicine | DX: Z12.31 Encounter for screening mammogram for malignant neoplasm of breast (principal) | CPT/HCPCS: 77063; 77067 ==

== ENCOUNTER → 2023-05-27 15:00 | Outpatient (BNV) | payer BC, SELFPAY | PROVIDERS: PCP Internal Medicine; Visit Provider Radiology Diagnostic Radiology | DX: Z12.31 Encounter for screening mammogram for malignant neoplasm of breast (principal) | CPT/HCPCS: 77063; 77067 ==

== ENCOUNTER → 2023-06-15 20:21 | Outpatient (BNVA) | payer BC, SELFPAY | PROVIDERS: PCP Internal Medicine; Visit Provider Counselor Mental Health ==

== ENCOUNTER → 2023-06-15 20:21 | Outpatient (BNVA) | payer BC, SELFPAY | PROVIDERS: PCP Internal Medicine; Visit Provider Counselor Mental Health ==

== ENCOUNTER 2023-06-29 14:48 | Outpatient (AMB) | payer BC, SELFPAY ==
--- NOTE | 2023-06-29 14:43 | MHC.AMNUTRGE ---
Intake VS Expanded 06/29/23 15:20 Height 5 ft 3 in Weight 155 lb BMI 27.5 Body Fat % 37.7 Body Fat Mass 58.4 Visceral Fat Rating 8 Body Water Mass 68.6 Muscle Mass/Score 91.8 Basal Metabolic Rate/Score 1,327 Intake Visit Reasons: (OV) PO LSG 02/05/20 Clearing Distribution Clerk Required: No Allergies Iodinated Contrast Media [IV CONTRAST] Allergy (Severe, Verified 05/24/23 15:12) DIFF BREATHING/HIVES Contrast Allergy PreMed Pack Allergy (Mild, Uncoded 05/24/23 15:12) hives STATINS Adverse Reaction (Severe, Uncoded 05/24/23 15:12) myalgias HPI Nutrition Presentation Details [facility] [place] 02/05/2020 Lowest weight after surgery (09/23/20) 129# Weight Jul 05 148# weight last month 159# current weight 155# Reason for consult elevated BMI Diet Assmnt Details Last appt goal was set to focus on increasing protein intake and fiber intake to help with fullness and satiety. She did this and notices an improvement. she reports she decided to take some of my recommendations and some of surgeons recommendations to create a plan that works really well for her. She reports she has began to realize how much extra she was mindlessly eating 24 hour recall: eggs - starbucks egg white bites 10am simply protein bar? shake 1 scoops rebuild with failrife milk Seeq protein drink during the day 3pm built bar dinner 4oz chicken and vegetables Last Appt 24 hour recall: starbucks egg white bites and starbucks refresher (high sugar) 10am chobani yogurt w granola or a zone bar 12:30 celebrate rebuild shake with fairlife milk 33g protein 3pm usually goldfish or lay crackers - somewhat mindless eating, very hungry ,tired, stressed sometimes 7pm dinner - no flexibility regarding this time, cooks. last night was chicken and veg She reports a lot of sweets, fast food , unplanned eating, increased cravings - resulted in 10# weight gain since last appt. 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 also going to groups consist Exercise: pt is very committed to her exercise, may not be consistent but does get back into it when she has been away form the gym. Diagnosis Nutrition problem #1 overweight/obesity As related to (etiology) #1 excess energy intake and physical inactivity As evidenced by (sign/symptom) #1 high BMI Monitoring/Goals Nutrition problem monitoring total energy intake, level of knowledge/skill, total PRO intake, total CHO intake and weight Outcome progress progressing Learning/Education Readiness to learn excellent Stages of change action Educational materials provided Yes Most Recent Diabetes Results: No Data to Display PFSH Medical History (Updated 05/24/23 @ 16:00 by Cipriano Frost MD) Colon cancer screening Bilateral renal cysts Breast cancer screening by mammogram Pre-op testing Rosacea Panniculitis Breast asymmetry following reconstructive surgery Adopted Intestinal malabsorption following gastrectomy Migraine Anxiety Eczema Surgical History Hx of varicose vein ligation History of hernia surgery Status post panniculectomy Bariatric surgery status Hx of knee surgery S/P laparoscopic sleeve gastrectomy (~2019) Hx of section (2003) Hx of laparoscopic gastric banding Hx of umbilical hernia repair (2005) S/P TORIBIO (total abdominal hysterectomy) Hx laparoscopic cholecystectomy (2003) H/O elbow surgery H/O shoulder surgery Family History Father No problems noted. Mother No problems noted. Brother No problems noted. Brother No problems noted. Brother No problems noted. Daughter No problems noted. Daughter No problems noted. 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 continue to prioritize protein and be mindful of food choices. Coding Level of Care Code Nutr Indiv Subseq ([id number]) Diagnoses History of sleeve gastrectomy Z90.3 Time Spent (min) 30
[2023-06-29 15:20] VITALS: BMI 27.5
== END 2023-06-29 16:04 | disposition home or self-care (01) ==
PROVIDERS: PCP Internal Medicine; Visit Provider Dietitian, Registered
DX: Z90.3 Acquired absence of stomach [part of] (principal)

== ENCOUNTER → 2023-06-29 14:48 | Outpatient (BNVA) | payer BC, SELFPAY | PROVIDERS: PCP Internal Medicine; Visit Provider Dietitian, Registered | DX: E66.9 Obesity, unspecified (principal); Z68.27 Body mass index [BMI] 27.0-27.9, adult; Z90.3 Acquired absence of stomach [part of]; Z71.3 Dietary counseling and surveillance | CPT/HCPCS: 97803 ==

== ENCOUNTER → 2023-07-13 19:54 | Outpatient (BNVA) | payer BC, SELFPAY | PROVIDERS: PCP Internal Medicine; Visit Provider Counselor Mental Health ==

== ENCOUNTER 2023-07-20 17:00 | Outpatient (AMB) | payer BC, SELFPAY ==
--- NOTE | 2024-01-11 10:56 | A.OFFWM_ITS ---
Intake Intake Visit Reasons: Group Therapy Allergies Iodinated Contrast Media [IV CONTRAST] Allergy (Severe, Verified 08/08/23 15:02) DIFF BREATHING/HIVES Contrast Allergy PreMed Pack Allergy (Mild, Uncoded 05/24/23 15:12) hives STATINS Adverse Reaction (Severe, Uncoded 05/24/23 15:12) myalgias PFSH Medical History Colon cancer screening Bilateral renal cysts Breast cancer screening by mammogram Pre-op testing Rosacea Panniculitis Breast asymmetry following reconstructive surgery Adopted Intestinal malabsorption following gastrectomy Migraine Anxiety Eczema Surgical History Hx of varicose vein ligation History of hernia surgery Status post panniculectomy Bariatric surgery status Hx of knee surgery S/P laparoscopic sleeve gastrectomy Hx of section (2003) Hx of laparoscopic gastric banding Hx of umbilical hernia repair (2005) S/P TORIBIO (total abdominal hysterectomy) Hx laparoscopic cholecystectomy (2003) H/O elbow surgery H/O shoulder surgery Family History Father No problems noted. Mother No problems noted. Brother No problems noted. Brother No problems noted. Brother No problems noted. Daughter No problems noted. Daughter No problems noted. 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 Pt shared appropriately, was engaged, and supportive. Assessment & Plan Assessment & Plan (1) Generalized anxiety disorder: Code(s): F41.1 - Generalized anxiety disorder (2) S/P laparoscopic sleeve gastrectomy: Comment: January 2020 Dr. Watters Code(s): Z98.84 - Bariatric surgery status Plan Patient reported struggling with maintenance and some old habits coming back, also pressure of being model patient and then not doing as well. She has had anxiety symptoms recently. She would benefit from ongoing group therapy to help identify and address root cause as well as developing healthy coping skills. Coding Level of Care Code Grp Psych ([id number]) Diagnoses Generalized anxiety disorder F41.1 S/P laparoscopic sleeve gastrectomy Z98.84 Time Spent (min) 60
== END 2023-07-20 18:00 | disposition home or self-care (01) ==
LOC: HO.HBST 07-21 08:29
PROVIDERS: PCP Internal Medicine; Visit Provider Counselor Mental Health
DX: F41.1 Generalized anxiety disorder (principal); Z98.84 Bariatric surgery status
CPT/HCPCS: 99499

== ENCOUNTER → 2023-07-20 17:00 | Outpatient (BNVA) | payer BC, SELFPAY | PROVIDERS: PCP Internal Medicine; Visit Provider Counselor Mental Health ==

== ENCOUNTER 2023-07-27 17:00 | Outpatient (AMB) | payer BC, SELFPAY ==
--- NOTE | 2023-07-30 10:44 | MHC.WMTHER ---
Intake Intake Visit Reasons: Group Therapy Allergies Iodinated Contrast Media [IV CONTRAST] Allergy (Severe, Verified 05/24/23 15:12) DIFF BREATHING/HIVES Contrast Allergy PreMed Pack Allergy (Mild, Uncoded 05/24/23 15:12) hives STATINS Adverse Reaction (Severe, Uncoded 05/24/23 15:12) myalgias PFSH Medical History (Updated 05/24/23 @ 16:00 by Cipriano Frost MD) Colon cancer screening Bilateral renal cysts Breast cancer screening by mammogram Pre-op testing Rosacea Panniculitis Breast asymmetry following reconstructive surgery Adopted Intestinal malabsorption following gastrectomy Migraine Anxiety Eczema Surgical History Hx of varicose vein ligation History of hernia surgery Status post panniculectomy Bariatric surgery status Hx of knee surgery S/P laparoscopic sleeve gastrectomy (~2019) Hx of section (2003) Hx of laparoscopic gastric banding Hx of umbilical hernia repair (2005) S/P TORIBIO (total abdominal hysterectomy) Hx laparoscopic cholecystectomy (2003) H/O elbow surgery H/O shoulder surgery Family History Father No problems noted. Mother No problems noted. Brother No problems noted. Brother No problems noted. Brother No problems noted. Daughter No problems noted. Daughter No problems noted. 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 Patient participated and was able to identify some areas of need in order to improve growth mindset. She shared her struggles and successes as well as supported others. Assessment & Plan Assessment & Plan (1) Generalized anxiety disorder: Code(s): F41.1 - Generalized anxiety disorder (2) S/P laparoscopic sleeve gastrectomy: Onset Date: ~2019 Comment: January 2020 Dr. Watters Code(s): Z98.84 - Bariatric surgery status Plan Patient reported struggling with maintenance and some old habits coming back, also pressure of being model patient and then not doing as well. She has had anxiety symptoms recently. She would benefit from ongoing group therapy to help identify and address root cause as well as developing healthy coping skills. Coding Level of Care Code Grp Psych ([id number]) Diagnoses Generalized anxiety disorder F41.1 S/P laparoscopic sleeve gastrectomy Z98.84 Time Spent (min) 60
== END 2023-07-30 10:44 | disposition home or self-care (01) ==
LOC: HO.HBST 07-28 08:21
PROVIDERS: PCP Internal Medicine; Visit Provider Counselor Mental Health
DX: F41.1 Generalized anxiety disorder (principal); Z98.84 Bariatric surgery status

== ENCOUNTER → 2023-07-27 17:00 | Outpatient (BNVA) | payer BC, SELFPAY | PROVIDERS: PCP Internal Medicine; Visit Provider Counselor Mental Health | DX: F41.1 Generalized anxiety disorder (principal); Z98.84 Bariatric surgery status | CPT/HCPCS: 90853 ==

== ENCOUNTER 2023-08-03 15:40 | Outpatient (AMB) | payer BC, SELFPAY ==
--- NOTE | 2023-08-04 12:06 | MHC.WMTHER ---
Intake Intake Visit Reasons: (OV) PO LSG 02/05/20 Allergies Iodinated Contrast Media [IV CONTRAST] Allergy (Severe, Verified 05/24/23 15:12) DIFF BREATHING/HIVES Contrast Allergy PreMed Pack Allergy (Mild, Uncoded 05/24/23 15:12) hives STATINS Adverse Reaction (Severe, Uncoded 05/24/23 15:12) myalgias PFSH Medical History (Updated 05/24/23 @ 16:00 by Cipriano Frost MD) Colon cancer screening Bilateral renal cysts Breast cancer screening by mammogram Pre-op testing Rosacea Panniculitis Breast asymmetry following reconstructive surgery Adopted Intestinal malabsorption following gastrectomy Migraine Anxiety Eczema Surgical History Hx of varicose vein ligation History of hernia surgery Status post panniculectomy Bariatric surgery status Hx of knee surgery S/P laparoscopic sleeve gastrectomy (~2019) Hx of section (2003) Hx of laparoscopic gastric banding Hx of umbilical hernia repair (2005) S/P TORIBIO (total abdominal hysterectomy) Hx laparoscopic cholecystectomy (2003) H/O elbow surgery H/O shoulder surgery Family History Father No problems noted. Mother No problems noted. Brother No problems noted. Brother No problems noted. Brother No problems noted. Daughter No problems noted. Daughter No problems noted. 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 Also seasonal aspect of the struggles with it being winter. She enjoys many activities, some of which are outdoors. Also discussed her addiction to a fast food drink she gets almost daily sometimes twice a day which is what is getting in her way of progress. Drink has added sugars and high in carbs, also caffeine. Disucssed replacing that routine with something else. Assessment & Plan Assessment & Plan (1) Generalized anxiety disorder: Code(s): F41.1 - Generalized anxiety disorder (2) S/P laparoscopic sleeve gastrectomy: Onset Date: Comment: January 2020 Dr. Watters Code(s): Z98.84 - Bariatric surgery status Plan Patient reported struggling with maintenance and some old habits coming back, also pressure of being model patient and then not doing as well. She has had anxiety symptoms recently. She would benefit from ongoing group therapy to help identify and address root cause as well as developing healthy coping skills. Coding Level of Care Code Psytx 45 mins (51561) Diagnoses Generalized anxiety disorder F41.1 S/P laparoscopic sleeve gastrectomy Z98.84 Time Spent (min) 45
== END 2023-08-04 12:04 | disposition home or self-care (01) ==
LOC: HO.HBST 15:40
PROVIDERS: PCP Internal Medicine; Visit Provider Counselor Mental Health
DX: F41.1 Generalized anxiety disorder (principal); Z98.84 Bariatric surgery status
CPT/HCPCS: 90834

== ENCOUNTER 2023-08-03 15:40 | Outpatient (AMB) | payer BC, SELFPAY ==
--- NOTE | 2023-08-04 12:13 | A.OFFWM_ITS ---
Intake Intake Visit Reasons: Group Therapy Allergies Iodinated Contrast Media [IV CONTRAST] Allergy (Severe, Verified 05/24/23 15:12) DIFF BREATHING/HIVES Contrast Allergy PreMed Pack Allergy (Mild, Uncoded 05/24/23 15:12) hives STATINS Adverse Reaction (Severe, Uncoded 05/24/23 15:12) myalgias PFSH Medical History (Updated 05/24/23 @ 16:00 by Cipriano Frost MD) Colon cancer screening Bilateral renal cysts Breast cancer screening by mammogram Pre-op testing Rosacea Panniculitis Breast asymmetry following reconstructive surgery Adopted Intestinal malabsorption following gastrectomy Migraine Anxiety Eczema Surgical History Hx of varicose vein ligation History of hernia surgery Status post panniculectomy Bariatric surgery status Hx of knee surgery S/P laparoscopic sleeve gastrectomy (~2019) Hx of section (2003) Hx of laparoscopic gastric banding Hx of umbilical hernia repair (2005) S/P TORIBIO (total abdominal hysterectomy) Hx laparoscopic cholecystectomy (2003) H/O elbow surgery H/O shoulder surgery Family History Father No problems noted. Mother No problems noted. Brother No problems noted. Brother No problems noted. Brother No problems noted. Daughter No problems noted. Daughter No problems noted. 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 patient shared and helped support others. Assessment & Plan Assessment & Plan (1) Generalized anxiety disorder: Code(s): F41.1 - Generalized anxiety disorder (2) S/P laparoscopic sleeve gastrectomy: Onset Date: ~2019 Comment: January 2020 Dr. Watters Code(s): Z98.84 - Bariatric surgery status Plan Patient reported struggling with maintenance and some old habits coming back, also pressure of being model patient and then not doing as well. She has had anxiety symptoms recently. She would benefit from ongoing group therapy to help identify and address root cause as well as developing healthy coping skills. Coding Level of Care Code Grp Psych ([id number]) Diagnoses Generalized anxiety disorder F41.1 S/P laparoscopic sleeve gastrectomy Z98.84 Time Spent (min) 60
== END 2023-08-04 12:13 | disposition home or self-care (01) ==
PROVIDERS: PCP Internal Medicine; Visit Provider Counselor Mental Health
DX: F41.1 Generalized anxiety disorder (principal); Z98.84 Bariatric surgery status

== ENCOUNTER → 2023-08-03 15:40 | Outpatient (BNVA) | payer BC, SELFPAY | PROVIDERS: PCP Internal Medicine; Visit Provider Counselor Mental Health | DX: F41.1 Generalized anxiety disorder (principal); Z98.84 Bariatric surgery status | CPT/HCPCS: 90853 ==

== ENCOUNTER 2023-08-08 14:48 | Outpatient (AMB) | payer BC, SELFPAY ==
--- NOTE | 2023-08-08 14:50 | MHC.NURWM ---
Intake VS Expanded 08/08/23 14:58 BP 173/77 H Blood Pressure Location Rt brachial Blood Pressure Position Sitting Pulse 64 Pulse Source Pulse Oximeter Temp 96.9 F Temperature Source Temporal Artery Scan Pulse Oximetry 96 Oxygen Delivery Method Room Air Height 5 ft 3 in Weight 154 lb BMI 27.3 Body Fat % 36.4 Body Fat Mass 56.0 Fat Free Mass 97.8 Visceral Fat Rating 8.0 Body Water % 45.1 Body Water Mass 69.4 Muscle Mass/Score 92.8 Basal Metabolic Rate/Score 1,338 Intake Visit Reasons: (OV) PO LSG 02/05/20 Allergies Iodinated Contrast Media [IV CONTRAST] Allergy (Severe, Verified 08/08/23 14:58) DIFF BREATHING/HIVES Contrast Allergy PreMed Pack Allergy (Mild, Uncoded 05/24/23 15:12) hives STATINS Adverse Reaction (Severe, Uncoded 05/24/23 15:12) myalgias Coding
[2023-08-08 14:58] VITALS: BP 173/77; PULSE 64; TEMP 36.1; O2SAT 96; BMI 27.3
--- NOTE | 2023-08-08 15:02 | MHC.OFFVISWM ---
Intake VS Expanded 08/08/23 14:58 08/08/23 15:03 BP 173/77 H Blood Pressure Location Rt brachial Blood Pressure Position Sitting Pulse 64 Pulse Source Pulse Oximeter Temp 96.9 F Temperature Source Temporal Artery Scan Pulse Oximetry 96 Oxygen Delivery Method Room Air Height 5 ft 3 in Weight 154 lb BMI 27.3 27.3 Body Fat % 36.4 Body Fat Mass 56.0 Fat Free Mass 97.8 Visceral Fat Rating 8.0 Body Water % 45.1 Body Water Mass 69.4 Muscle Mass/Score 92.8 Basal Metabolic Rate/Score 1,338 Intake Visit Reasons: (OV) PO LSG 02/05/20 Allergies Iodinated Contrast Media [IV CONTRAST] Allergy (Severe, Verified 08/08/23 15:02) DIFF BREATHING/HIVES Contrast Allergy PreMed Pack Allergy (Mild, Uncoded 05/24/23 15:12) hives STATINS Adverse Reaction (Severe, Uncoded 05/24/23 15:12) myalgias HPI HPI Comments History of Present Illness Details The patient is a pleasant 58-year-old female who returns to the office today. She is approximately 3 years 6 months post sleeve gastrectomy performed on 02/05/2020. Weight today is 154 lb with a BMI of 27.3. She states that she had a period of time where her weight went up to approximately 160 lb. She has since changed her approach to include daily exercise. She has joined a rowing group. She states that she has now day 96 of straight exercise. She did contact Dr. Barreto for a meal plan but states that the recommended meal plan does not work for her. A complaint that she has is of the excess skin of her upper arms. She states that she needs to wear specialized compressive clothing when she runs. 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 She has trained and completed half iron man contest and needed to wear specialized garments for her arms as she gets chafing between her arms and her axilla area from the rubbing of excess skin. She does not have a rash currently, this occurs much more commonly during the warm months and with increased activity. Recommended celebrate rebuild 1 scoop w 8 oz almond milk am and noon ZP bar mid morning and mid afternoon meal at night 6 forks protein and 3 of salad and 3 of veg Doing: starbucks egg bites x 2 in am or indonesian yogurt ZP bar mid morning celebrate rebuild 1 scoop ZP bar mid afternoon meal 6 forks protein, 4-5 forks of veg. Drinking :seeq 20 gm protein water daily 64 oz water exercise: daily. rowing, elliptical, running, bike PFSH Medical History Colon cancer screening Bilateral renal cysts Breast cancer screening by mammogram Pre-op testing Rosacea Panniculitis Breast asymmetry following reconstructive surgery Adopted Intestinal malabsorption following gastrectomy Migraine Anxiety Eczema Surgical History Hx of varicose vein ligation History of hernia surgery Status post panniculectomy Bariatric surgery status Hx of knee surgery S/P laparoscopic sleeve gastrectomy (~2019) Hx of section (2003) Hx of laparoscopic gastric banding Hx of umbilical hernia repair (2005) S/P TORIBIO (total abdominal hysterectomy) Hx laparoscopic cholecystectomy (2003) H/O elbow surgery H/O shoulder surgery Family History Father No problems noted. Mother No problems noted. Brother No problems noted. Brother No problems noted. Brother No problems noted. Daughter No problems noted. Daughter No problems noted. 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 Cognitive needs: No Hearing needs: No Vision needs: Yes (Glasses) Review of Systems Const All systems reviewed & are unremarkable except as noted in HPI and below Physical Exam Vital Signs: Last Vital Signs Temp 96.9 F 08/08/23 14:58 Pulse 64 08/08/23 14:58 BP 173/77 H 08/08/23 14:58 Pulse Ox 96 08/08/23 14:58 Oxygen Delivery Method Room Air 08/08/23 14:58 BMI result Body Mass Index 27.3 Const General: healthy appearing and no acute distress Resp Effort & Inspection: normal respiratory effort Auscultation: clear to auscultation bilaterally Cardio Rate: regular rate Rhythm: regular rhythm GI Auscultation: normal bowel sounds Skin Other: Excess skin noted of bilateral upper extremities without active rash Extrem General: Yes normal to inspection Assessment & Plan Assessment & Plan (1) S/P laparoscopic sleeve gastrectomy: Comment: January 2020 Dr. Watters Code(s): Z98.84 - Bariatric surgery status Plan: Discussed following the plan by Dr. Watters exactly for a week and then discussing with him what works and if anything what does not work for her. Allowing him to adjust her meal plan. She states that she will do so. Discussed that she is adding extra to her plan without advice. She states her goal is to achieve a weight of approximately 140-145 lb. (2) Excess skin: Code(s): L98.7 - Excessive and redundant skin and subcutaneous tissue Plan: We will continue to monitor for any rash, she will call the office immediately if she develops a rash. Consideration for submission to insurance in the future for medically necessary bilateral brachioplasty Coding Level of Care Code Est Pt Level 3 (25866) Diagnoses S/P laparoscopic sleeve gastrectomy Z98.84 Excess skin L98.7
[2023-08-08 15:03] VITALS: BMI 27.3
== END 2023-08-08 15:35 | disposition home or self-care (01) ==
PROVIDERS: PCP Internal Medicine; Visit Provider Physician Assistant Surgical
DX: E66.3 Overweight (principal); Z68.27 Body mass index [BMI] 27.0-27.9, adult; Z98.84 Bariatric surgery status; L98.7 Excessive and redundant skin and subcutaneous tissue
CPT/HCPCS: 99213

== ENCOUNTER → 2023-08-08 14:48 | Outpatient (BNVA) | payer BC, SELFPAY | PROVIDERS: PCP Internal Medicine; Visit Provider Physician Assistant Surgical | DX: R79.89 Other specified abnormal findings of blood chemistry (principal); E66.3 Overweight; K91.2 Postsurgical malabsorption, not elsewhere classified; Z90.3 Acquired absence of stomach [part of] ==

== ENCOUNTER 2023-08-15 08:39 | Outpatient (AMB) | payer BC, SELFPAY ==
[2023-08-15 08:46] VITALS: BP 122/76; BMI 26.9
--- NOTE | 2023-08-15 08:46 | MHC.OFFVIS ---
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/PCP referral/DO NOT RS Intake Note: no concerns Political Science Research Assistant Required: No Information Interpreted: non-clinical & clinical Personal Vehicle Advisor: Personal Vehicle Advisor Present ([employer]) Accompanied by: Self / Same As Patient Allergies Iodinated Contrast Media [IV CONTRAST] Allergy (Severe, Verified 08/08/23 15:02) DIFF BREATHING/HIVES Contrast Allergy PreMed Pack Allergy (Mild, Uncoded 05/24/23 15:12) hives STATINS Adverse Reaction (Severe, Uncoded 05/24/23 15:12) myalgias Post menopausal: Yes HPI HPI Comments History of Present Illness Details Presenting for annual exam. No complaints. Last Pap/HPV was in no 8- no history of abnormal Pap smears, the patient is status post TORIBIO for benign causes Last Mammogram was in 06/04 was BI-RADS 1 Last Colonoscopy was in 11/02 [facility] Medical History Colon cancer screening Bilateral renal cysts Breast cancer screening by mammogram Pre-op testing Rosacea Panniculitis Breast asymmetry following reconstructive surgery Adopted Intestinal malabsorption following gastrectomy Migraine Anxiety Eczema Surgical History Hx of varicose vein ligation History of hernia surgery Status post panniculectomy Bariatric surgery status Hx of knee surgery S/P laparoscopic sleeve gastrectomy Hx of section (2003) Hx of laparoscopic gastric banding Hx of umbilical hernia repair (2005) S/P TORIBIO (total abdominal hysterectomy) Hx laparoscopic cholecystectomy (2003) H/O elbow surgery H/O shoulder surgery Family History Father No problems noted. Mother No problems noted. Brother No problems noted. Brother No problems noted. Brother No problems noted. Daughter No problems noted. Daughter No problems noted. 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 Cognitive needs: No Hearing needs: No Vision needs: Yes (Glasses) Female Reproductive History Menstrual Menopause type: surgical Total pregnancies: 2 Full term: 2 Number of Living Children: 2 Date of Mammogram: 05/27/23 Review of Systems Const All systems reviewed & are unremarkable except as noted in HPI and below Card Reports as per HPI and Reports no additional complaints Resp Reports as per HPI and Reports no additional complaints GI Reports as per HPI and Reports no additional complaints Reports as per HPI Physical Exam Vital Signs: Last Vital Signs BP 122/76 08/15/23 08:46 BMI result Body Mass Index 26.9 Const General: cooperative, healthy appearing and comfortable General: Yes bladder normal to palpation External Female Exam: No lesion Speculum Exam - Vagina: normal appearance of the vagina, normal vaginal discharge and not erythematous Speculum Exam - Cervix: Cervix absent Bimanual exam- vagina & uterus: bladder normal to palpation and uterus absent Bimanual Exam- Adnexa, other: Other (No masses detected) Assessment & Plan Assessment & Plan (1) Well woman exam: Code(s): Z01.419 - Encounter for gynecological examination (general) (routine) without abnormal findings Plan: Co testing not indicated. Counseled the patient about the recommended dietary allowance of 1200 mg of Calcium & 600 IU of vitamin D. Instructions given the patient to schedule next screening Mammogram in 06/05. The patient was instructed to perform monthly self-breast exams and schedule annual exam in a year. All questions answered and the patient verbalized understanding. Coding Level of Care Code New Pt Prev Care 40-64y(96258) Diagnoses Well woman exam Z01.419
== END 2023-08-15 09:14 | disposition home or self-care (01) ==
PROVIDERS: PCP Internal Medicine; Visit Provider Obstetrics & Gynecology
DX: Z01.419 Encounter for gynecological examination (general) (routine) without abnormal findings (principal)
CPT/HCPCS: 99386

== ENCOUNTER → 2023-08-15 08:39 | Outpatient (BNVA) | payer BC, SELFPAY | PROVIDERS: PCP Internal Medicine; Visit Provider Obstetrics & Gynecology ==

== ENCOUNTER 2023-08-17 20:22 | Outpatient (AMB) | payer BC, SELFPAY ==
--- NOTE | 2023-08-20 12:01 | A.OFFWM_ITS ---
Intake Intake Visit Reasons: Group Therapy Allergies Iodinated Contrast Media [IV CONTRAST] Allergy (Severe, Verified 08/08/23 15:02) DIFF BREATHING/HIVES Contrast Allergy PreMed Pack Allergy (Mild, Uncoded 05/24/23 15:12) hives STATINS Adverse Reaction (Severe, Uncoded 05/24/23 15:12) myalgias PFSH Medical History Colon cancer screening Bilateral renal cysts Breast cancer screening by mammogram Pre-op testing Rosacea Panniculitis Breast asymmetry following reconstructive surgery Adopted Intestinal malabsorption following gastrectomy Migraine Anxiety Eczema Surgical History Hx of varicose vein ligation History of hernia surgery Status post panniculectomy Bariatric surgery status Hx of knee surgery S/P laparoscopic sleeve gastrectomy Hx of section (2003) Hx of laparoscopic gastric banding Hx of umbilical hernia repair (2005) S/P TORIBIO (total abdominal hysterectomy) Hx laparoscopic cholecystectomy (2003) H/O elbow surgery H/O shoulder surgery Family History Father No problems noted. Mother No problems noted. Brother No problems noted. Brother No problems noted. Brother No problems noted. Daughter No problems noted. Daughter No problems noted. 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 Patient shared about trying to set new goals and how she gone about keeping herself accountability. Group topic was about keeping desire and drive alive while in the process. Assessment & Plan Assessment & Plan (1) Generalized anxiety disorder: Code(s): F41.1 - Generalized anxiety disorder (2) S/P laparoscopic sleeve gastrectomy: Comment: January 2020 Dr. Watters Code(s): Z98.84 - Bariatric surgery status Plan Patient reported struggling with maintenance and some old habits coming back, also pressure of being model patient and then not doing as well. She has had anxiety symptoms recently. She would benefit from ongoing group therapy to help identify and address root cause as well as developing healthy coping skills. Coding Level of Care Code Grp Psych (45956) Diagnoses Generalized anxiety disorder F41.1 S/P laparoscopic sleeve gastrectomy Z98.84 Time Spent (min) 60
== END 2023-08-20 12:01 | disposition home or self-care (01) ==
LOC: HO.HBST 20:22
PROVIDERS: PCP Internal Medicine; Visit Provider Counselor Mental Health
DX: F41.1 Generalized anxiety disorder (principal); Z98.84 Bariatric surgery status

== ENCOUNTER → 2023-08-17 20:22 | Outpatient (BNVA) | payer BC, SELFPAY | PROVIDERS: PCP Internal Medicine; Visit Provider Counselor Mental Health | DX: F41.1 Generalized anxiety disorder (principal); Z98.84 Bariatric surgery status | CPT/HCPCS: 90853 ==

== ENCOUNTER 2023-08-31 15:48 | Outpatient (AMB) | payer BC, SELFPAY ==
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
== END 2023-08-31 18:15 | disposition home or self-care (01) ==
PROVIDERS: PCP Internal Medicine; Visit Provider Counselor Mental Health
DX: F41.1 Generalized anxiety disorder (principal); Z98.84 Bariatric surgery status
CPT/HCPCS: 99499

== ENCOUNTER 2023-08-31 15:48 | Outpatient (AMB) | payer BC, SELFPAY ==
--- NOTE | 2023-08-31 16:06 | A.OFFVIS_ITS ---
Intake VS Expanded 09/01/23 11:23 Height 5 ft 3 in Weight 150 lb BMI 26.6 Body Fat % 36.3 Body Fat Mass 54.6 Fat Free Mass 96.0 Visceral Fat Rating 8 Body Water % 45.1 Body Water Mass 68.0 Muscle Mass/Score 91.0 Basal Metabolic Rate/Score 1,313 Intake Visit Reasons: (OV) PO LSG 02/05/20 Allergies Iodinated Contrast Media [IV CONTRAST] Allergy (Severe, Verified 08/08/23 15:02) DIFF BREATHING/HIVES Contrast Allergy PreMed Pack Allergy (Mild, Uncoded 05/24/23 15:12) hives STATINS Adverse Reaction (Severe, Uncoded 05/24/23 15:12) myalgias HPI Nutrition Presentation Details LSG 02/05/2020 Lowest weight after surgery (09/23/20) 129# Weight Jul 05 148# weight May 2023 159# current weight 150# Reason for consult elevated BMI Diet Assmnt Details Last appt goal was set to focus on increasing protein intake and fiber intake to help with fullness and satiety. She did this and notices an improvement. she reports she decided to take some of my recommendations and some of surgeons recommendations to create a plan that works really well for her. She reports she has began to realize how much extra she was mindlessly eating . Sometimes snacking at night when watching TV. Enabled by her , and vice versa. ypically chooses lay crackers but feels she is doing better with this and moderation. Her goal is to lose about another 10# 24 hour recall: eggs - starbucks egg white bites 10am simply protein bar? shake 1-2 scoops rebuild with failrife milk Seeq protein drink during the day 3pm built bar dinner 4oz chicken and vegetables Exercise: pt is very committed to her exercise, right now doing more rowing, was doing a lot of running preparing for the [employer] race. Diagnosis Nutrition problem #1 overweight/obesity As related to (etiology) #1 excess energy intake and physical inactivity As evidenced by (sign/symptom) #1 high BMI Monitoring/Goals Nutrition problem monitoring total energy intake, level of knowledge/skill, total PRO intake, total CHO intake and weight Outcome progress progressing Learning/Education Readiness to learn excellent Stages of change action Educational materials provided Yes Most Recent Diabetes Results: No Data to Display FOR[facility]LY [facility], [facility] Medical History Colon cancer screening Bilateral renal cysts Breast cancer screening by mammogram Pre-op testing Rosacea Panniculitis Breast asymmetry following reconstructive surgery Adopted Intestinal malabsorption following gastrectomy Migraine Anxiety Eczema Surgical History Hx of varicose vein ligation History of hernia surgery Status post panniculectomy Bariatric surgery status Hx of knee surgery S/P laparoscopic sleeve gastrectomy Hx of section (2003) Hx of laparoscopic gastric banding Hx of umbilical hernia repair (2005) S/P TORIBIO (total abdominal hysterectomy) Hx laparoscopic cholecystectomy (2003) H/O elbow surgery H/O shoulder surgery Family History Father No problems noted. Mother No problems noted. Brother No problems noted. Brother No problems noted. Brother No problems noted. Daughter No problems noted. Daughter No problems noted. 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 Coding Level of Care Code Nutr Indiv Subseq ([id number]) Diagnoses Overweight (BMI 25.0-29.9) E66.3 Time Spent (min) 45
[2023-09-01 11:23] VITALS: BMI 26.6
== END 2023-08-31 16:53 | disposition home or self-care (01) ==
PROVIDERS: PCP Internal Medicine; Visit Provider Dietitian, Registered
DX: E66.3 Overweight (principal)

== ENCOUNTER → 2023-08-31 15:48 | Outpatient (BNVA) | payer BC, SELFPAY | PROVIDERS: PCP Internal Medicine; Visit Provider Counselor Mental Health | DX: E66.3 Overweight (principal); Z68.26 Body mass index [BMI] 26.0-26.9, adult; Z98.84 Bariatric surgery status; Z71.3 Dietary counseling and surveillance | CPT/HCPCS: 97803 ==

== ENCOUNTER 2023-09-14 17:15 | Outpatient (AMB) | payer BC, SELFPAY ==
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
== END 2023-09-14 18:15 | disposition home or self-care (01) ==
PROVIDERS: PCP Internal Medicine; Visit Provider Counselor Mental Health
DX: F41.1 Generalized anxiety disorder (principal); Z98.84 Bariatric surgery status
CPT/HCPCS: 99499

== ENCOUNTER → 2023-09-14 20:33 | Outpatient (BNVA) | payer BC, SELFPAY | PROVIDERS: PCP Internal Medicine; Visit Provider Counselor Mental Health ==

== ENCOUNTER → 2023-12-21 17:00 | Outpatient (BNVA) | payer BC, SELFPAY | PROVIDERS: PCP Internal Medicine; Visit Provider Counselor Mental Health ==

== ENCOUNTER 2024-01-16 13:20 | Outpatient (AMB) | payer BC, SELFPAY ==
--- NOTE | 2024-01-16 13:22 | A.OFFVIS_ITS ---
Vital Signs 01/16/24 13:30 Height 5 ft 3 in Weight 150 lb BMI 26.6 Intake Visit Reasons: INJ- Injection for RT shoulder pain Intake Note: Rashaad is a 58 year old right hand dominant female who presents today for a follow up of her right shoulder, She had an injection done in the left shoulder which was very helpful . Patient reports that she has been rowing which she believes has aggravated her shoulder She is hoping for an injection in the right shoulder Allergies Iodinated Contrast Media [IV CONTRAST] Allergy (Severe, Verified 08/08/23 15:02) DIFF BREATHING/HIVES Contrast Allergy PreMed Pack Allergy (Mild, Uncoded 05/24/23 15:12) hives STATINS Adverse Reaction (Severe, Uncoded 05/24/23 15:12) myalgias HPI HPI INJ- Injection for RT shoulder pain: Details: Rashaad has been having right shoulder pain and weakness for several months. She recently started rowing but has also noticed weakness. She had prior decompression surgery with Dr Grace. [facility] Medical History Colon cancer screening Bilateral renal cysts Breast cancer screening by mammogram Pre-op testing Rosacea Panniculitis Breast asymmetry following reconstructive surgery Adopted Intestinal malabsorption following gastrectomy Migraine Anxiety Eczema Surgical History Hx of varicose vein ligation History of hernia surgery Status post panniculectomy Bariatric surgery status Hx of knee surgery S/P laparoscopic sleeve gastrectomy Hx of section (2003) Hx of laparoscopic gastric banding Hx of umbilical hernia repair (2005) S/P TORIBIO (total abdominal hysterectomy) Hx laparoscopic cholecystectomy (2003) H/O elbow surgery H/O shoulder surgery Family History Father No problems noted. Mother No problems noted. Brother No problems noted. Brother No problems noted. Brother No problems noted. Daughter No problems noted. Daughter No problems noted. 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 Site was prepped using aseptic technique. Patient tolerated the procedure well. Primary Site: right shoulder Approach Used: posterolateral Coding 00610 - Glenohumeral/Tronchanteric Bursa/Intraarticular Procedure code (CPT) selection complete Assessment & Plan Assessment & Plan (1) Dysfunction of right rotator cuff: Code(s): M67.911 - Unspecified disorder of synovium and tendon, right shoulder Category: Medical Plan: Injected right SAS. PT for strengthening. Coding Level of Care Code Est Pt Level 3 (49209) Diagnoses Dysfunction of right rotator cuff M67.911 CPT Codes Coding - Joint 7: 18497 - Glenohumeral/Tronchanteric Bursa/Intraarticular ([id number])
[2024-01-16 13:30] VITALS: BMI 26.6
== END 2024-01-16 13:58 | disposition home or self-care (01) ==
PROVIDERS: PCP Internal Medicine; Visit Provider Orthopaedic Surgery
DX: M67.911 Unspecified disorder of synovium and tendon, right shoulder (principal)
CPT/HCPCS: 20610; 99213

== ENCOUNTER → 2024-01-16 13:20 | Outpatient (BNVA) | payer BC, SELFPAY | PROVIDERS: PCP Internal Medicine; Visit Provider Orthopaedic Surgery | DX: M67.911 Unspecified disorder of synovium and tendon, right shoulder (principal) | CPT/HCPCS: 20610; J0665; J1100 ==

== ENCOUNTER 2024-02-29 08:06 | Outpatient (REF) | payer BC, SELFPAY ==
--- NOTE | ~2024-02-29 | MR_ITS ---
EXAMINATION: MR ABDOMEN WITHOUT AND WITH CONTRAST CLINICAL INFORMATION: Follow-up pancreatic cyst. COMPARISON: February 17, 2023 TECHNIQUE: MR abdomen was performed without and with use of 7.5 mL intravenous Gadavist gadolinium contrast. Postcontrast images are performed in multiphase dynamic sequences. Imaging was performed in 3 planes. MRCP was also performed. FINDINGS: LUNG BASES: No pleural or pericardial effusion. Small hiatal hernia. LIVER, GALLBLADDER, AND BILIARY TREE: The liver is normal in size, smooth in contour, and normal in signal. No focal hepatic lesion or biliary ductal dilatation is present. The common duct measures 7 mm at the jessee hepatis. No intraductal filling defects. The gallbladder is surgically absent. PANCREAS: No ductal dilatation. Stable 4 mm cystic lesion in the tail the pancreas. No solid component. No abnormal enhancement. No peripancreatic stranding. SPLEEN: Not enlarged. ADRENAL GLANDS: No adrenal mass. KIDNEYS AND URETERS: The kidneys are normal in size, shape, and enhance symmetrically. No hydronephrosis. No perinephric stranding. GASTROINTESTINAL TRACT: No bowel obstruction. No ascites or fluid collection. LYMPH NODES: No bulky lymphadenopathy. VASCULAR: Normal caliber abdominal aorta. MR/MR abdomen wo/w con IMPRESSION: Stable examination. No change in 4 mm cystic lesion in the tail of the pancreas. Follow-up imaging in one year is recommended. Electronically signed by: Efraín Shepard MD 03/09/2024 11:31 AM EDT
[2024-02-29] MEDS: gadobutroL 7.5 ML VIAL IVPUSH (09:07)
== END 2024-02-29 08:07 | disposition home or self-care (01) ==
LOC: HO.MRI 08:06
PROVIDERS: PCP Internal Medicine; Visit Provider Internal Medicine Gastroenterology
DX: K86.2 Cyst of pancreas (principal)
CPT/HCPCS: 74183; A9585

== ENCOUNTER 2024-04-05 08:50 | Outpatient (AMB) | payer BC, SELFPAY ==
--- NOTE | 2024-04-05 08:59 | MHC.OFFVISWM ---
VS Expanded 04/05/24 09:09 BP 138/79 Blood Pressure Location Rt brachial Blood Pressure Position Sitting Pulse 62 Pulse Source Pulse Oximeter Temp 97.6 F Temperature Source Temporal Artery Scan Pulse Oximetry 97 Oxygen Delivery Method Room Air Height 5 ft 3 in Weight 159 lb 3.2 oz BMI 28.2 Body Fat % 39.2 Body Fat Mass 62.4 Fat Free Mass 96.8 Visceral Fat Rating 9.0 Body Water % 43.1 Body Water Mass 68.6 Muscle Mass/Score 92.0 Basal Metabolic Rate/Score 1,336 Intake Visit Reasons: (OV) PO LSG 02/05/20 Allergies Iodinated Contrast Media [IV CONTRAST] Allergy (Severe, Verified 04/05/24 09:04) DIFF BREATHING/HIVES Contrast Allergy PreMed Pack Allergy (Mild, Uncoded 05/24/23 15:12) hives STATINS Adverse Reaction (Severe, Uncoded 05/24/23 15:12) myalgias Medication List - Last Reconciled 04/05/24 by BAYRON Haines calcium carbonate-vitamin D3 600 mg-10 mcg (400 unit) (Calcium 600 + D(3)) 1 tab PO DAILY clotrimazole 1% (Antifungal (clotrimazole)) 1 appl topical BID lorazepam 0.5 mg PO DAILY PRN magnesium 250 mg PO DAILY multivitamin (Multiple Vitamins tablet) 1 tab PO DAILY HPI Comments Details: The patient is a pleasant 58-year-old female who returns to the office today. She is approximately 4 years 2 months post sleeve gastrectomy performed on 02/05/2020. Weight today is 159.2 lb with a BMI of 28.2. She states that she had a period of time where her weight went up to approximately 160 lb. She has since changed her approach to include daily exercise. She has joined a rowing group. She states that she has now day 96 of straight exercise. She did contact Dr. Barreto for a meal plan but states that the recommended meal plan does not work for her. Also co incr migraines and fatigue A complaint that she has is of the excess skin of her upper arms. She states that she needs to wear specialized compressive clothing when she runs. 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 She has trained and completed half iron man contest and needed to wear specialized garments for her arms as she gets chafing between her arms and her axilla area from the rubbing of excess skin. She does not have a rash currently, this occurs much more commonly during the warm months and with increased activity. She states that she is being held back exercising and especially running due to her arm discomfort and rash. Rash occurs 2-3 x per month improving with Rx antifungal with recurrance. Recommended celebrate rebuild 1 scoop w 8 oz almond milk am and noon ZP bar mid morning and mid afternoon meal at night 6 forks protein and 3 of salad and 3 of veg Doing: overnight oats, w 8 oz fairlife milk built bar rebuild shake 1 scoop w 8 oz fairlife milk bar meal 8 forks protein 8 forks veg gram crackers, cookies Drinking : 64 oz water exercise: daily. rowing, elliptical, running, bike PFSH Medical History Colon cancer screening Bilateral renal cysts Breast cancer screening by mammogram Pre-op testing Rosacea Panniculitis Breast asymmetry following reconstructive surgery Adopted Intestinal malabsorption following gastrectomy Migraine Anxiety Eczema Surgical History Hx of varicose vein ligation History of hernia surgery Status post panniculectomy Bariatric surgery status Hx of knee surgery S/P laparoscopic sleeve gastrectomy Hx of section (2003) Hx of laparoscopic gastric banding Hx of umbilical hernia repair (2005) S/P TORIBIO (total abdominal hysterectomy) Hx laparoscopic cholecystectomy (2003) H/O elbow surgery H/O shoulder surgery Family History Father No problems noted. Mother No problems noted. Brother No problems noted. Brother No problems noted. Brother No problems noted. Daughter No problems noted. Daughter No problems noted. 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 Watters Code(s): Z98.84 - Bariatric surgery status Category: Surgical Plan: Discussed the importance of following a more structured meal plan. She very much enjoys the oats with fair life milk in the morning. Suggested removing the afternoon bar in substituting fresh fruit and removing the fair life milk with her shake, utilizing almond milk. Exercise also is critically important. 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 She states that these will and soon and she will be able to exercise more. Discussed adding yoga. Check yearly labs. Return to clinic 2 months. Orders: Orders Lipid Panel Today R53.83 - Other fatigue, R79.89 - Other specified abnormal findings of blood chemistry, Z98.84 - Bariatric surgery status Zinc Today R53.83 - Other fatigue, R79.89 - Other specified abnormal findings of blood chemistry, Z98.84 - Bariatric surgery status C Reactive Protein Today R53.83 - Other fatigue, R79.89 - Other specified abnormal findings of blood chemistry, Z98.84 - Bariatric surgery status Ferritin Today R53.83 - Other fatigue, R79.89 - Other specified abnormal findings of blood chemistry, Z98.84 - Bariatric surgery status Vitamin D 25-OH Total Today R53.83 - Other fatigue, R79.89 - Other specified abnormal findings of blood chemistry, Z98.84 - Bariatric surgery status Insulin Today R53.83 - Other fatigue, R79.89 - Other specified abnormal findings of blood chemistry, Z98.84 - Bariatric surgery status Hemoglobin A1c Today R53.83 - Other fatigue, R79.89 - Other specified abnormal findings of blood chemistry, Z98.84 - Bariatric surgery status Complete Blood Count Auto Diff Today R53.83 - Other fatigue, R79.89 - Other specified abnormal findings of blood chemistry, Z98.84 - Bariatric surgery status IRON PROFILE Today R53.83 - Other fatigue, R79.89 - Other specified abnormal findings of blood chemistry, Z98.84 - Bariatric surgery status Vitamin B12 and Folate Today R53.83 - Other fatigue, R79.89 - Other specified abnormal findings of blood chemistry, Z98.84 - Bariatric surgery status Vitamin B1 Today R53.83 - Other fatigue, R79.89 - Other specified abnormal findings of blood chemistry, Z98.84 - Bariatric surgery status Vitamin A Today R53.83 - Other fatigue, R79.89 - Other specified abnormal findings of blood chemistry, Z98.84 - Bariatric surgery status TSH reflex Free T4 Today R53.83 - Other fatigue, R79.89 - Other specified abnormal findings of blood chemistry, Z98.84 - Bariatric surgery status Basic Metabolic Panel Today R53.83 - Other fatigue, R79.89 - Other specified abnormal findings of blood chemistry, Z98.84 - Bariatric surgery status
[2024-04-05 09:09] VITALS: BP 138/79; PULSE 62; TEMP 36.4; O2SAT 97; BMI 28.2
== END 2024-04-05 09:42 | disposition home or self-care (01) ==
PROVIDERS: PCP Internal Medicine; Visit Provider Physician Assistant Surgical
DX: E66.3 Overweight (principal); Z68.28 Body mass index [BMI] 28.0-28.9, adult; Z90.3 Acquired absence of stomach [part of]; Z98.84 Bariatric surgery status
CPT/HCPCS: 99213

== ENCOUNTER 2024-04-05 08:50 | Outpatient (REF) | payer BC, SELFPAY ==
[2024-04-05 10:08] LABS: MANUAL DIFF FLAG NO
[2024-04-05 10:30] LABS: Basophils Percent Auto 0.6 % (0-2); Eosinophils Absolute Auto 0.1 X10*3/uL (0.0-0.4); Hemoglobin 13.4 g/dl (12.0-16.0); Imm Gran Abs Auto 0.02 X10*3/uL (0.00-0.03); Imm Gran Pct Auto 0.3 % (0.0-0.4); Lymphocytes Absolute Auto 2.1 X10*3/uL (1.2-4.9); Lymphocytes Percent Auto 31.6 % (20-40); Mean Corpuscular HGB Conc 34.4 g/dl (31.0-35.0); Mean Corpuscular Hemoglobin 31.1 pg (27.0-33.0); Mean Corpuscular Volume 90.5 fL (80.0-98.0); Mean Platelet Volume 9.5 fL (9.4-12.3); Monocytes Absolute Auto 0.4 X10*3/uL (0.1-1.2); Neutrophils Percent Auto 60.5 % (45-73); Platelet Count 269 X10*3/uL (160-400); Red Blood Count 4.31 X10*6/uL (4.20-5.50); Red Cell Distribution Width 12.8 % (11.0-16.0); White Blood Count 6.7 X10*3/uL (4.8-10.8)
[2024-04-05 10:35] LABS: Estimated Average Glucose 108 mg/dL; Hemoglobin A1C 123.1284 umol/L; Hemoglobin A1c % 5.4 % (<6.0)
[2024-04-05 11:20] LABS: Anion Gap 9 (12-20); Blood Urea Nitrogen 15 mg/dL (9-16); Calcium 9.5 mg/dL (8.4-10.2); Carbon Dioxide 31 mmol/L (22-29); Chloride 106 mmol/L (96-108); Cholesterol 185 mg/dL (<200); Estimated Glomerular Filt Rate > 60; Glucose Random 99 mg/dL (60-115); HDL Cholesterol 67 mg/dL (>40); Iron 88 mcg/dL (30-160); LDL Cholesterol Calculated 108 mg/dL (<100); Percent Iron Saturation 33 % (15-50); Potassium 4.5 mmol/L (3.3-5.1); Sodium 141 mmol/L (135-145); Total Iron Binding Capacity 268 mcg/dL (228-428); Triglycerides 54 mg/dL (<150); Unsaturated Iron Binding 180 ug/dL
[2024-04-05 11:37] LABS: Ferritin 54 ng/mL (10-250); Insulin 4 uU/mL (2-29); TSH reflex Free T4 0.66 uIU/mL (0.32-4.0)
[2024-04-05 11:49] LABS: Folate 17.2 ng/mL (> or = 4.0); Vitamin B12 1201 pg/mL (200-900)
[2024-04-09 16:03] LABS: Zinc 66 mcg/dL (60-130)
[2024-04-11 15:48] LABS: Vitamin B1 21 nmol/L (8-30)
[2024-04-13 00:04] LABS: Vitamin A 49 mcg/dL (38-98)
== END 2024-04-05 08:51 | disposition home or self-care (01) ==
LOC: HO.LAB 08:50
PROVIDERS: PCP Internal Medicine; Visit Provider Physician Assistant Surgical
DX: Z98.84 Bariatric surgery status (principal); R79.89 Other specified abnormal findings of blood chemistry; R53.83 Other fatigue
CPT/HCPCS: 36415; 80048; 80061; 82306; 82607; 82728; 82746; 83036; 83525; 83540; 84425; 84443; 84590; 84630; 85025; 86140

== ENCOUNTER 2024-05-03 14:53 | Outpatient (RCR) | payer BC, SELFPAY ==
--- NOTE | 2024-02-22 09:21 | MHC.PT.EP ---
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 OBJECTIVE FINDINGS: DECR POSTURE, (+) STRENGTH DEFICITS POST RC/ SCAP MM, STIFF THORACIC REGION W (+) LUMBOPELVIC ASYMM, DECR CERV AND Rt SH AROM, (+) NEER'S AND SPEED'S Rt SH; AND FLUCTUATING PAIN Rt ANT GH. SHE HAS INCR SXS Rt SH W ROWING, LIFTING, SLEEPING, AND OVERHEAD DRESSING. WE DISCUSSED Pt'S GOALS, PT POC AND PLAN TO PROCEED IN PT, ADDRESSING THE ABOVE FINDINGS. Frequency and Duration: The patient will be seen 2 x WK x 4 WKS Short Term Goals: DECR Rt SH PAIN TO 2-3/10 Pt INDEP SELF CORRECT POSTURE-> WFL BODY MECH W 3:3 SIM TASKS IMPROVE EFFICIENCY OF POST RC/ SCAP STAB TO REDUCE UPPER TRAP COMPEN IMPROVE AROM CERV AND Rt SH Touch Up Worker Goals: (-) Rt NEER'S SIGN INDEP HEP AND SELF SX MGMT TECHN Rt SH COMPLEX STRENGTH IMPROVED BY AT LEAST 1 GRADE Pt RESUME REG ADLs/ FITNESS W/O EXACERBATION OF SXS-> IMPROVED SPADI (AT EVAL 73/130) Treatment Plan: Modalities to reduce pain, spasms and effusion. Manual therapy to restore motion and function. Therapeutic exercise to improve strength and flexibility. Neuromuscular re-education for posture and balance. Therapeutic activities to return to functional activities of daily living. Electronically signed by: ASHA FAYE,PT Please sign and return to therapist. Thank you for your referral.
--- NOTE | 2024-05-03 16:46 | MHC.PT.DC ---
[facility] [place] Office [place] Office [place] Office [address] [phone] F: [phone] F: [phone] F: [phone] F: [phone] Physical Therapy Discharge Report Diagnosis: Rt SHOULDER DYSFUNCTION Date of Surgery: Date of Evaluation: 02/22/24 Date of Discharge: 05/03/24 Treatments to Date: 12 Cancellations to Date: 0 No Shows to Date: 0 Discharge Status: Achieved Goals Improved Function Independent with HEP Discharge Summary: Rashaad presents with increased R shoulder AROM and strength with only mild weakness and pain with shoulder flexion in ant shoulder and ACJ area. Further imaging would be requires to confirm or refute possible RTC or labral involvement/tear. She agrees to discharge from PT this session, she is independent with comprehensive HEP including program incorporating machines at gym. Electronically signed by: Héctor Hamm, PT, DPT Please sign and return to therapist. Thank you for your referral.
== END 2024-05-03 16:47 | disposition home or self-care (01) ==
LOC: HO.PT 14:53
PROVIDERS: PCP Internal Medicine; Visit Provider Orthopaedic Surgery
DX: M67.911 Unspecified disorder of synovium and tendon, right shoulder (principal)
CPT/HCPCS: 97110; 97140; 97162; 97530

== ENCOUNTER 2024-05-07 14:41 | Outpatient (AMB) | payer BC, SELFPAY ==
--- NOTE | 2024-05-07 14:53 | MHC.OFFVIS ---
Intake Visit Reasons: OV- Right shoulder follow up Intake Note: Rashaad is a 58 year old right hand dominant female who presents today for a follow up of her right shoulder. She received a subacromial shoulder injection on 01/16/24. Patient reports that the injection was not helpful hoeever she is doing better but not 100%. She explains that she had completed PT and has decreased weight lifting. Allergies Iodinated Contrast Media [IV CONTRAST] Allergy (Severe, Verified 04/05/24 09:04) DIFF BREATHING/HIVES Contrast Allergy PreMed Pack Allergy (Mild, Uncoded 05/24/23 15:12) hives STATINS Adverse Reaction (Severe, Uncoded 05/24/23 15:12) myalgias HPI HPI OV- Right shoulder follow up: Details: Rashaad is a 58 year old right hand dominant female who presents today for a follow up of her right shoulder. She received a subacromial shoulder injection on 01/16/24. Patient reports that the injection was not helpful hoeever she is doing better but not 100%. She explains that she had completed PT and has decreased weight lifting. She would like to get back to normal activities but every time she does she describes weakness and pain in her shoulder. [facility] Medical History Colon cancer screening Bilateral renal cysts Breast cancer screening by mammogram Pre-op testing Rosacea Panniculitis Breast asymmetry following reconstructive surgery Adopted Intestinal malabsorption following gastrectomy Migraine Anxiety Eczema Surgical History Hx of varicose vein ligation History of hernia surgery Status post panniculectomy Bariatric surgery status Hx of knee surgery S/P laparoscopic sleeve gastrectomy Hx of section (2003) Hx of laparoscopic gastric banding Hx of umbilical hernia repair (2005) S/P TORIBIO (total abdominal hysterectomy) Hx laparoscopic cholecystectomy (2003) H/O elbow surgery H/O shoulder surgery Family History Father No problems noted. Mother No problems noted. Brother No problems noted. Brother No problems noted. Brother No problems noted. Daughter No problems noted. Daughter No problems noted. 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 Improves with rest but every time she tries to use it normally she has a return of symptoms. Physical therapy and injections were only minimally helpful and I recommend an MRI. This was ordered and she will follow up once this has been completed. Orders: Orders MR shoulder RT wo con 05/07/24 M67.911 - Unspecified disorder of synovium and tendon, right shoulder Coding Level of Care Code Est Pt Level 3 (48320) Diagnoses Dysfunction of right rotator cuff M67.911
== END 2024-05-07 15:40 | disposition home or self-care (01) ==
PROVIDERS: PCP Internal Medicine; Visit Provider Orthopaedic Surgery
DX: M67.911 Unspecified disorder of synovium and tendon, right shoulder (principal)
CPT/HCPCS: 99213

== ENCOUNTER → 2024-05-07 14:41 | Outpatient (BNVA) | payer BC, SELFPAY | PROVIDERS: PCP Internal Medicine; Visit Provider Orthopaedic Surgery ==

== ENCOUNTER 2024-05-25 14:53 | Outpatient (AMB) | payer BC, SELFPAY ==
--- NOTE | 2024-05-25 14:55 | A.OFFPC_ITS ---
Vital Signs 05/25/24 14:56 Height 5 ft 3 in Weight 164 lb 4 oz BMI 29.1 BP 130/60 Blood Pressure Location Lt brachial Position Sitting Pulse 67 Pulse Source Pulse Oximeter Pulse Oximetry (%) 98 Oxygen Delivery Method Room Air Intake Visit Reasons: annual exam Intake Note: Patient is here today for a physical. Illusionist Required: No Char Filter Tank Tender Head: Not Required per policy Accompanied by: Self / Same As Patient Allergies Iodinated Contrast Media [IV CONTRAST] Allergy (Severe, Verified 05/25/24 15:23) DIFF BREATHING/HIVES Contrast Allergy PreMed Pack Allergy (Mild, Uncoded 05/25/24 15:23) hives STATINS Adverse Reaction (Severe, Uncoded 05/25/24 15:23) myalgias Medication List - Last Reconciled 05/25/24 by Judit Johnson PA-C calcium carbonate-vitamin D3 600 mg-10 mcg (400 unit) (Calcium 600 + D(3)) 1 tab PO DAILY clotrimazole 1% (Antifungal (clotrimazole)) 1 appl topical BID lorazepam 0.5 mg PO DAILY PRN magnesium 250 mg PO DAILY multivitamin (Multiple Vitamins tablet) 1 tab PO DAILY Tobacco use date assessed: 05/25/24 Dental Screening Dental Screen Date: 05/25/24 Did you have a dental visit in the last 12 months?: Yes Did you have a dental problem in the last 6 months where you did not have access to dental care?: No Was dental information given to patient?: Patient has dentist HPI annual exam HPI Details 58-year-old overweight female with a his tory of laparoscopic sleeve gastrectomy in 2019, generalized anxiety disorder, GERD coming in for physical exam last seen by Dr. Frost 05/2023. Patient states she had 4 migraines in the last month typically will have 2-3. Did not notice a difference in severity but did mention 1 migraine came with brain fog which is new for her. She is up-to-date on her Pap smears, colonoscopy was completed October [address] Carvajal and mammogram scheduled for next week. [facility] Medical History (Updated 05/25/24 @ 15:41 by Judit Johnson PA-C) Colon cancer screening Bilateral renal cysts Breast cancer screening by mammogram Pre-op testing Rosacea Panniculitis Breast asymmetry following reconstructive surgery Adopted Intestinal malabsorption following gastrectomy Migraine Anxiety Eczema Surgical History Hx of varicose vein ligation History of hernia surgery Status post panniculectomy Bariatric surgery status Hx of knee surgery S/P laparoscopic sleeve gastrectomy Hx of section (2003) Hx of laparoscopic gastric banding Hx of umbilical hernia repair (2005) S/P TORIBIO (total abdominal hysterectomy) Hx laparoscopic cholecystectomy (2003) H/O elbow surgery H/O shoulder surgery Family History Father No problems noted. Mother No problems noted. Brother No problems noted. Brother No problems noted. Brother No problems noted. Daughter No problems noted. Daughter No problems noted. 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 1. Little interest or pleasure in doing things: not at all 2. Feeling down, depressed, or hopeless: not at all 3. Trouble falling or staying asleep, or sleeping too much: several days 4. Feeling tired or having little energy: several days 5. Poor appetite or overeating: not at all 6. Feeling bad about yourself - or that you are a failure or have let yourself or your family down: not at all 7. Trouble concentrating on things, such as reading the newspaper or watching television: several days 8. Moving or speaking so slowly that other people could have noticed. Or the opposite - being so fidgety or restless that you have been moving around a lot more than usual: not at all 9. Thoughts that you would be better off or of hurting yourself in some way: not at all Total score: 3 Depression Screening Interpretation: Negative Depression Screening Done: Yes Source: Developed by Drs. Toni Kay, Cande Conn, Michael Guajardo and colleagues, with an educational amado from [employer]. Thrive Questionnaire Date Thrive assessed: 05/25/24 I am a: Patient What is your living situation today?: I have a steady place to live Within the past 12 months, did the food you bought not last and you didn't have the money to get more?: Never true Within the past 12 months, did you worry whether your food would run out before you got money to buy more?: Never true Do you have trouble paying for medicines?: No Do you have trouble getting transportation to medical appointments?: No Do you have trouble paying your heating and electricity bill?: No Do you have trouble taking care of your child, family member or friend?: No Do you have trouble with day-to-day activities such as bathing, preparing meals, shopping, managing finances, etc.?: No Are you currently unemployed and looking for a job?: No Are you interested in more education?: No Please select the resources that you would like help with: None Currently or been in a relationship where the following occur: No concerns reported THRIVE Score: 0 AUDIT C Alcohol Use Questionnaire (AUDIT-C) 1. How often do you have a drink containing alcohol?: Monthly or less 2. How many drinks containing alcohol do you have on a typical day when you are drinking?: 1 or 2 3. How often do you have six or more drinks on one occasion?: Never Total Score: 1 TERESA-7 AMB Questionnaire TERESA-7 Date TERESA - 7 assessed: 05/25/24 Feeling nervous, anxious, or on edge: 1 = Several days Not being able to stop or control worryin = Not at all Worrying too much about different things: 0 = Not at all Trouble relaxin = Several days Being so restless that it is hard to sit still: 0 = Not at all Becoming easily annoyed or irritable: 0 = Not at all Feeling afraid as if something awful might happen: 0 = Not at all Total TERESA-7 score (0-4 normal; 5-9 mild; 10-14 moderate; 15-21 severe): 2 Source: Developed by Drs. Toni Kay, Cande Conn, Michael Guajardo and colleagues, with an educational amado from [employer]. Review of Systems Const Denies body aches, Denies fatigue, Denies fever(s), Denies frequent falls, Re ports headache(s) and Denies weakness Eyes Details: eye doctor yearly Reports no additional complaints and Denies change in vision ENT Denies dysphagia, Denies dizziness, Denies facial pain, Reports headache(s), Denies nasal congestion and Denies odynophagia Card Denies chest pain, Denies syncope, Denies irregular heart rhythm, Denies leg edema, Denies lightheadedness and Denies dyspnea Resp Denies cough and Denies dyspnea GI Denies constipation, Denies dysphagia, Denies dyspepsia, Denies diarrhea, Denies nausea, Denies odynophagia and Denies vomiting Denies urinary frequency, Denies dysuria, Denies urinary hesitancy and Denies urinary urgency Musc Denies back pain and Denies myalgias Skin/Breast Reports system reviewed and no additional complaints, except as documented Neuro Denies dizziness, Denies syncope, Denies frequent falls, Reports headache(s) and Denies weakness Psych Reports no additional complaints Endo Denies fatigue Physical exam (Primary Care) Vital Signs: Last Vital Signs Pulse 67 05/25/24 14:56 BP 130/60 05/25/24 14:56 Pulse Ox 98 05/25/24 14:56 Oxygen Delivery Method Room Air 05/25/24 14:56 BMI result Body Mass Index 29.1 Tobacco/Smoking Status: Tobacco use Status Tobacco use date assessed 05/25/24 05/25/24 15:02 Patient Tobacco Use Status Never used Tobacco 05/25/24 15:02 e-Cigarette/Vaping Use Never Used 05/25/24 15:02 PHQ-9: PHQ-9 Score PHQ-9: Total score 3 05/25/24 15:13 Depression Screening Interpretation: Negative Thrive Assessment: Date of Thrive Assessment Date Thrive assessed 05/25/24 05/25/24 15:02 Currently or been in a relationship where the following occur: No concerns reported Const General: cooperative, healthy appearing, comfortable and no acute distress Orientation/consciousness: patient oriented x3 HENMT Head: Yes normocephalic Ears: hearing grossly normal bilaterally, external ears normal, TM's normal bilaterally and EAC's normal General nose exam: Normal external nose present Face and sinus: Yes normal facial exam and Yes sinuses nontender Mouth: Normal oral and palatal mucosa present and tongue normal Throat: Yes posterior oropharynx normal Eyes General: appearance normal, both eyes and all related structures Conjunctivae: conjunctivae normal Pupils: Equal, round and reactive pupils present EOM: EOMs intact bilaterally and No Nystagmus present Neck Neck: Yes normal visual inspection, Yes full ROM and Yes no lymphadenopathy Chest Chest palpation & inspection: normal inspection of the chest Resp Effort & Inspection: normal respiratory effort Auscultation: clear to auscultation bilaterally, no crackles, no rales, no rhonchi, no wheezes and breath sounds present Cardio Rate: regular rate Rhythm: regular rhythm Peripheral pulses: radial pulses present and dorsalis pedis present GI Inspection: Yes normal to inspection and No Abdominal wall edema Palpation (GI): Soft to palpation, not firm and nontender Auscultation: normal bowel sounds Rectal Exam - Female: deferred General: Yes no CVA tenderness Back/Spine/Pelvis Back: no CVA tenderness Skin General skin exam: no rashes or lesions noted Neuro General: patient oriented x3 Cranial nerves: Yes Equal, round and reactive pupils present, Yes Midline tongue present, Yes Ability to bilaterally elevate shoulders present and No Nystagmus present Gait exam (Neuro): Normal gait present Extrem General: Yes normal to inspection, Yes full ROM, No no pedal edema and No edema Psych Speech and movement: Normal speech and movement present Affect: normal affect Insight: Good insight present (Psych) Judgement: Good judgement present (Psych) Office Procedures Flu Questionnaire Does the patient have a severe egg allergy?: No Does the patient have severe life threatening allergies?: No Does the patient have a fever or illness today?: No Has the patient ever had Guillain-Caliente Syndrome?: No Has the patient ever had any past reaction to a flu shot?: No Immunizations Fluarix Triv [id number] (PF) 45 mcg (15 mcg x 3)/0.5 mL IM syringe Performing Provider: Judit Johnson PA-C [facility] Administered by: Leatha Chow LPN on 05/25/24 15:12 Dose Route Admin Location Dispensed Lot Number Expiration Date NDC Stencil Inspector 0.5 mL IM Left Deltoid 0.5 mL [id number] 12/10/24 04612-557-80 [employer] VIS Given Date VIS Provided VIS Publication Date 05/25/24 Single Vaccine 21 Eligibility Eligibility Date Funding Source Not [facility] Eligible 05/25/24 Private Coding Level of Care Code Est Pt Prev Care 40-64y(42462) Diagnoses Cervical cancer screening Z12.4 Elevated LFTs R79.89 S/P laparoscopic sleeve gastrectomy Z98.84 Generalized anxiety disorder F41.1 GERD (gastroesophageal reflux disease) K21.9 Overweight (BMI 25.0-29.9) E66.3 Annual physical exam Z00.00 Rosacea L71.9 Migraine G43.909 Assessment & Plan Assessment & Plan (1) Cervical cancer screening: Code(s): Z12.4 - Encounter for screening for malignant neoplasm of cervix Category: Medical Plan: Patient follows with ruching machine operator and has regular Pap smears. (2) Elevated LFTs: Code(s): R79.89 - Other specified abnormal findings of blood chemistry Category: Medical Plan: Patient has a history of LFTs was normal on last exam ordered for repeat liver panel. (3) S/P laparoscopic sleeve gastrectomy: Comment: January 2020 Dr. Watters Code(s): Z98.84 - Bariatric surgery status Category: Surgical Plan: Continue to follow with Lobito seymour to the weight management clinic (4) Generalized anxiety disorder: Code(s): F41.1 - Generalized anxiety disorder Category: Medical Plan: Declining counselor at this time not currently on medical management. (5) GERD (gastroesophageal reflux disease): Code(s): K21.9 - Gastro-esophageal reflux disease without esophagitis Category: Medical Plan: Avoid trigger foods such as citrus, tomato products, soda, caffeine, spicy foods and other foods that may be irritating to your stomach. Avoid laying flat 3-4 hours after eating and elevate the head of the bed 30 degrees to prevent acid from moving into the esophagus. Feels symptoms are well managed at this time without medication (6) Overweight (BMI 25.0-29.9): Code(s): E66.3 - Overweight Category: Medical Plan: Healthy diet and regular exercise is encouraged. (7) Annual physical exam: Code(s): Z00.00 - Encounter for general adult medical examination without abnormal findings Category: Medical Plan: Patient is up-to-date on all recommended routine screenings and vaccinations for her age. Mammogram, colonoscopy, Pap smear all up-to-date as well as the blood work. We will continue to monitor blood work. Continue with healthy diet and regular exercise. (8) Rosacea: Code(s): L71.9 - Rosacea, unspecified Category: Medical Plan: Continue to follow up with Dermatology for treatment of rosacea (9) Migraine: Code(s): G43.909 - Migraine, unspecified, not intractable, without status migrainosus Category: Medical Plan: Patient complaining of migraines states she has a about 2-3 per month we will prescribe sumatriptan for abortive medication. Advised patient to reach out if she begins having increased migraines in severity or frequency. Plan This note was constructed using voice recognition software. While every effort has been made to ensure accuracy and plush cutter, still areas may have been included sometimes these areas may affect the content or meeting of the given symptoms. Total time spent caring for the patient today was 30 minutes. This includes time spent before the visit reviewing the chart, time spent during the visit, and time spent after the visit and documentation. Orders: Orders Influenza [id number] Immunization Today Z23 - Encounter for immunization Liver Panel Today R79.89 - Other specified abnormal findings of blood chemistry Medications: New sumatriptan succinate take 1 tab at onset of headache; if no relief may repeat 1 tab after at least 2 hrs; max = 4 tabs/24 hr PO 14 tabs 1RF Refilled lorazepam 0.5 mg PO DAILY PRN 30 tabs 0RF anxiety F41.9 - Anxiety disorder, unspecified
--- OUTSIDE RECORDS SUMMARY | 2024-05-25 14:55 | XMS_ITS ---
Author Organization [facility] Address [address] [place] [address] Care Team Providers Care Senior Ux Designer Name Role Phone Cipriano Frost MD Primary Care Provider Randell Stern Jr REASON FOR VISIT Mri results Encounters Encounter Location Date Provider Diagnosis [facility] [address] [place] [address] 03/06/2024 Randell Forrester Jr PLAN OF TREATMENT Next Appt Details Provider Name:Randell dennis Jr, 01/02/2025 09:00:00 AM, [address] [place] [address], [address], [place], [address],
--- OUTSIDE RECORDS SUMMARY | 2024-05-25 14:55 | XMS_ITS ---
Author Organization [facility] Address [address] [place] [address] Care Team Providers Care Play Reader Name Role Phone Cipriano Frost MD Primary Care Provider Randell Stern Jr REASON FOR VISIT Patient presents today for a pancreatic cyst. Encounters Encounter Location Date Provider Diagnosis [facility] [address] [place] [address] [address] [place] [address] 02/08/2024 Randell Forrester Jr PLAN OF TREATMENT Next Appt Details Provider Name:Randell dennis Jr, 01/02/2025 09:00:00 AM, [address] [place] [address], [address], [place], [address],
--- OUTSIDE RECORDS SUMMARY | 2024-05-25 14:55 | XMS_ITS ---
Author Organization [facility] Address [address] [place] [address] Care Team Providers Care Artificial Inseminator Name Role Phone Cipriano Frost MD Primary Care Provider Chastity Forrester Jr, Randell Jin REASON FOR VISIT pancreatic cyst Encounters Encounter Location Date Provider Diagnosis [facility] [address] [place] [address] 01/19/2024 Randell Forrester Jr PLAN OF TREATMENT Next Appt Details Provider Name:Randell dennis Jr, 01/02/2025 09:00:00 AM, [address] [place] [address], [address], [place], [address],
--- OUTSIDE RECORDS SUMMARY | 2024-05-25 14:55 | XMS_ITS | Patient Health Record ---
Author Organization [facility] Address [address] [place] [address] Care Team Providers Care Algebraist Name Role Phone Cipriano Frost MD Primary Care Provider Randell Stern Jr ALLERGIES Allergen (clinical drug ingredient) Drug/Non Drug Allergy documented on EMR Reaction Allergy Type Onset Date Status Cat dander cats (uncoded) Unknown Allergy Acti ve cat scan dye (uncoded) Unknown Allergy Active RESULTS Component Value Reference Range Notes MR abdomen wo/w con Reviewed date:03/14/2024 07:58:34 AM Interpretation: Performing Lab: Notes/Report: [address] [address] Magnetic Resonance Report Signed Patient: Desire Boyle MR#: [id number] 6 : 1965 Acct:[id number] Age/Sex: 59 / F ADM Date: 02/29/24 Loc: HO.MRI Attending Dr: Randell Forrester MD Ordering Physician: Randell Forrester MD Date of Service: 02/29/24 Procedure(s): MR abdomen wo/w con Accession Number(s): [id number] cc: Randell Forrester MD; Cipriano Frost MD EXAMINATION: MR ABDOMEN WITHOUT AND WITH CONTRAST CLINICAL INFORMATION: Follow-up pancreatic cyst. COMPARISON: February 17, 2023 TECHNIQUE: MR abdomen was performed without and with use of 7.5 mL intravenous Gadavist gadolinium contrast. Postcontrast images are performed in multiphase dynamic sequences. Imaging was performed in 3 planes. MRCP was also performed. FINDINGS: LUNG BASES: No pleural or pericardial effusion. Small hiatal hernia. LIVER, GALLBLADDER, AND BILIARY TREE: The liver is normal in size, smooth in contour, and normal in signal. No focal hepatic lesion or biliary ductal dilatation is present. The common duct measures 7 mm at the jessee hepatis. No intraductal filling defects. The gallbladder is surgically absent. PANCREAS: No ductal dilatation. Stable 4 mm cystic lesion in the tail the pancreas. No solid component. No abnormal enhancement. No peripancreatic stranding. SPLEEN: Not enlarged. ADRENAL GLANDS: No adrenal mass. KIDNEYS AND URETERS: The kidneys are normal in size, shape, and enhance symmetrically. No hydronephrosis. No perinephric stranding. GASTROINTESTINAL TRACT: No bowel obstruction. No ascites or fluid collection. LYMPH NODES: No bulky lymphadenopathy. VASCULAR: Normal caliber abdominal aorta. MR/MR abdomen wo/w con IMPRESSION: Stable examination. No change in 4 mm cystic lesion in the tail of the pancreas. Follow-up imaging in one year is recommended. Electronically signed by: Efraín Shepard MD 03/09/2024 11:31 AM EDT RP Dictated By: Keenan Shepard MD Signed By: <Electronically signed by Keenan Shepard MD in OV> 03/09/24 1131 DD/ 0820 TD/TT: 02/29/24 0855 Continuous Dryout Operator: REASON FOR REFERRAL Referring Provider First Name Cipriano Referring Provider Last Name Santosh Referring Provider Speciality Internal M edicine Referred Organization [facility] Referred Provider Randell Forrester Jr Referred Address [address] [place] [phone], Referred Provider Specialty Gastroentero logy General Notes Blanche Qureshi 024 01:16:21 PM EDT > requested an o blue referral from Dr. Frost's office for visit with Dr. Forrester on 02-08-2024 Referral Priority Routine MEDICATIONS Medication SIG (Take, Route, Frequency, Duration) Notes Start Date End Date Status LORazepam 0.5 MG Oral for 30 as needed A ctive Doxycycline Hyclate 20 MG Oral for 90 Active Multivitamin Active Calcium Active Magnesium Active Vitamin D Active IMMUNIZATIONS Vaccine Route Administration Date Status Comme nts Influenza Unknown 03/18/2022 Administered Influenza Unknown 04/05/2023 Administered SOCIAL HISTORY Tobacco Use: Social History Observation Description Date Details (start date - stop date) Never Smoker NA - NA Sex Assigned At : Social History Observation Description Sex Assigned At Unknown Tobacco Use/Smoking Question Answer Notes Patient is a nonsmoker Alcohol Screen Question Answer Notes Did you have a drink contain ing alcohol in the past year? Yes How often did you have a dri nk containing alcohol in the past year? Never (0 point) How many drinks did you have on a typical day when you were drinking in the past year? 1 or 2 drinks (0 point) How often did you have 6 or more drinks on one occasion in the past year? Never (0 point) Points 0 Interpretation Negative PROBLEMS Problem Type ICD Code Onset Dates Problem Status W/U Status Risk SNOMED Code Notes Problem Colon cancer screening (Z12.11) Active confirmed 086326530 Problem Encounter for other preprocedural examination (Z01.818) Active confirmed 432631274 Problem Pancreatic cyst (K86.2) Active confirmed 84137268 VITAL SIGNS Temperature 97.8 degrees Fahrenheit 01/02/2024 Blood pressure diastolic 00 mm Hg 01/02/2024 Height 63 in 01/02/2024 Blood pressure systolic 000 mm Hg 01/02/2024 Weight 160 lbs 01/02/2024 BMI 28.34 kg/m2 01/02/2024 Encounters Encounter Location Date Provider Diagnosis [facility] [address] [place] [phone] 01/19/2024 Randell Forrester Jr [facility] [address] [place] [address] 02/08/2024 Randell Forrester Jr [facility] [address] [place] [address] 01/02/2024 Randell Forrester Jr Pancreatic cyst K86.2 and Colon cancer screening Z12.11 [facility] [address] [place] [address] 06/01/2023 Randell Forrester Jr [facility] [address] [place] [phone] 10/24/2023 Randell Forrester Jr [facility] [address] [place] [address] 03/06/2024 Randell Forrester Jr ASSESSMENTS Encounter Date Diagnosis Assessment Notes Treatment Notes Treatment Clinical Notes 01/02/2024 Colon cancer screening (ICD-10 - Z12.11) 01/02/2024 Pancreatic cyst (ICD-10 - K86.2) Colonoscopy material was printed PLAN OF TREATMENT Pending Test Test Name Order Date MRI ABD W&WO CONTRAST 01/02/2024 Future Test Test Name Order Date COLONOSCOPY 09/23/2022 Next Appt Details Provider Name:Randell dennis Jr, 01/02/2025 09:00:00 AM, [address], [address], [place], [address], Insurance Providers Payer Name Payer Address Payer Phone Subscriber Number Group Number Insured Name Patient Relationship to Insured Coverage Start Date Coverage End Date [facility] [place] [email or web address] PROFESSIONAL [place]S [address] [place] [address] [id number] 500 DESIRE BOYLE Self - patient is the insured MEDICAL (GENERAL) HISTORY Medical History History ICD Code Rosacea Anxiety Elevated BMI Colonoscopy 11/02, normal, ten-year follo wup Surgical History Surgery Date(Month/Year) Panniculectomy 07/04 Umbilical hernia repair 07/04 Laparoscopic sleeves gastrectomy 07/02 shoulder surgeriesx3 elbow section cholecystectomy partial hysterectomy Left breast lumpectomy
[2024-05-25 14:56] VITALS: BP 130/60; PULSE 67; O2SAT 98; BMI 29.1
== END 2024-05-25 15:42 | disposition home or self-care (01) ==
PROVIDERS: PCP Internal Medicine
DX: Z12.4 Encounter for screening for malignant neoplasm of cervix (principal); R79.89 Other specified abnormal findings of blood chemistry; Z98.84 Bariatric surgery status; F41.1 Generalized anxiety disorder; K21.9 Gastro-esophageal reflux disease without esophagitis; E66.3 Overweight; Z00.00 Encounter for general adult medical examination without abnormal findings; L71.9 Rosacea, unspecified; G43.909 Migraine, unspecified, not intractable, without status migrainosus; Z23 Encounter for immunization

== ENCOUNTER → 2024-05-25 14:53 | Outpatient (BNVA) | payer BC, SELFPAY | PROVIDERS: PCP Internal Medicine | DX: Z00.00 Encounter for general adult medical examination without abnormal findings (principal); Z23 Encounter for immunization; R79.89 Other specified abnormal findings of blood chemistry; F41.1 Generalized anxiety disorder; K21.9 Gastro-esophageal reflux disease without esophagitis; E66.3 Overweight; L71.9 Rosacea, unspecified; G43.909 Migraine, unspecified, not intractable, without status migrainosus; Z98.84 Bariatric surgery status | CPT/HCPCS: 90471; 90656; 96127 ==

== ENCOUNTER 2024-06-01 14:46 | Outpatient (REF) | payer BC, SELFPAY ==
--- OUTSIDE RECORDS SUMMARY | 2024-06-01 14:48 | XMS_ITS ---
Author Organization [facility] Address [address] [place] [address] Care Team Providers Care Hitting Coach Name Role Phone Cipriano Frost MD Primary Care Provider Randell Stern Jr [phone] REASON FOR VISIT Patient presents today for a pancreatic cyst. Encounters Encounter Location Date Provider Diagnosis [facility] [address] [place] [address] [address] [place] [address] 02/08/2024 Randell Forrester Jr PLAN OF TREATMENT Next Appt Details Provider Name:Randell dennis Jr, 01/02/2025 09:00:00 AM, [address] [place] [address], [address], [place], [address],
--- OUTSIDE RECORDS SUMMARY | 2024-06-01 14:48 | XMS_ITS ---
Author Organization [facility] Address [address] [place] [address] Care Team Providers Care Roofing Layer Name Role Phone Cipriano Frost MD Primary Care Provider Chastity Forrester Jr, Randell Jin REASON FOR VISIT pancreatic cyst Encounters Encounter Location Date Provider Diagnosis [facility] [address] [place] [address] 01/19/2024 Randell Forretser Jr PLAN OF TREATMENT Next Appt Details Provider Name:Randell dennis Jr, 01/02/2025 09:00:00 AM, [address] [place] [address], [address], [place], [address],
--- OUTSIDE RECORDS SUMMARY | 2024-06-01 14:48 | XMS_ITS | Patient Health Record ---
Author Organization [facility] Address [address] [place] [address] Care Team Providers Care Fancy Needleworker Name Role Phone Cipriano Frost MD Primary Care Provider Randell Stern Jr ALLERGIES Allergen (clinical drug ingredient) Drug/Non Drug Allergy documented on EMR Reaction Allergy Type Onset Date Status Cat dander cats (uncoded) Unknown Allergy Acti ve cat scan dye (uncoded) Unknown Allergy Active RESULTS Component Value Reference Range Notes MR abdomen wo/w con Reviewed date:03/14/2024 07:58:34 AM Interpretation: Performing Lab: Notes/Report: [address] [address] Magnetic Resonance Report Signed Patient: Desire Boyle MR#: [id number] 6 : 1965 Acct:[id number] Age/Sex: 59 / F ADM Date: 02/29/24 Loc: HO.MRI Attending Dr: Randell Forrester MD Ordering Physician: Randell Forrester MD Date of Service: 02/29/24 Procedure(s): MR abdomen wo/w con Accession Number(s): [id number] cc: Randell Forrester MD; Cipriano Frost MD [...] 03/09/24 1131 DD/ 0820 TD/TT: 02/29/24 0855 Materials Handler: REASON FOR REFERRAL Referring Provider First Name Cipriano Referring Provider Last Name Santosh Referring Provider Speciality Internal M edicine Referred Organization [facility] Referred Provider Randell Forrester Jr Referred Address [address] [place] [phone], Referred Provider Specialty Gastroentero logy General Notes [...] Problem Colon cancer screening (Z12.11) Active confirmed 959047318 Problem Encounter for other preprocedural examination (Z01.818) Active confirmed 761326813 Problem Pancreatic cyst (K86.2) Active confirmed 10065073 VITAL SIGNS Temperature 97.8 degrees Fahrenheit 01/02/2024 Blood pressure diastolic 00 mm Hg 01/02/2024 Height 63 in 01/02/2024 Blood pressure systolic 000 mm Hg 01/02/2024 Weight 160 lbs 01/02/2024 BMI 28.34 kg/m2 01/02/2024 Encounters Encounter Location Date Provider Diagnosis [facility] [address] [place] [address] 01/19/2024 Randell Forrester Jr [facility] [address] [place] [address] 02/08/2024 Randell Forrester Jr [facility] [address] [place] [address] 01/02/2024 Randell Forrester Jr Pancreatic cyst K86.2 and Colon cancer screening Z12.11 [facility] [address] [place] [address] 06/01/2023 Randell Forrester Jr [facility] [address] [place] [address] 10/24/2023 Randell Forrester Jr [facility] [address] [place] [address] 03/06/2024 Randell Forrester Jr ASSESSMENTS Encounter Date [...] 09:00:00 AM, [address], [address], [place], [address], Insurance Providers Payer Name Payer Address Payer Phone Subscriber Number Group Number Insured Name Patient Relationship to Insured Coverage Start Date Coverage End Date [facility] [place] [employer] PROFESSIONAL CLAIMS [address] [place] [address] [id number] 500 DESIRE BOYLE Self - patient is the insured MEDICAL (GENERAL) HISTORY Medical History History ICD Code Rosacea Anxiety Elevated BMI Colonoscopy 11/02, normal, ten-year follo wup Surgical History Surgery Date(Month/Year) Panniculectomy 07/04 Umbilical hernia repair 07/04 Laparoscopic sleeves gastrectomy 07/02 shoulder surgeriesx3 elbow section cholecystectomy partial hysterectomy Left breast lumpectomy
== END 2024-06-01 14:47 | disposition home or self-care (01) ==
LOC: HO.MAMMO 14:46
PROVIDERS: PCP Internal Medicine; Visit Provider Internal Medicine
DX: Z12.31 Encounter for screening mammogram for malignant neoplasm of breast (principal)
CPT/HCPCS: 77063; 77067

== ENCOUNTER → 2024-06-01 15:00 | Outpatient (BNV) | payer BC, SELFPAY | PROVIDERS: PCP Internal Medicine; Visit Provider Internal Medicine | DX: Z12.31 Encounter for screening mammogram for malignant neoplasm of breast (principal) | CPT/HCPCS: 77063; 77067 ==

== ENCOUNTER 2024-06-21 14:51 | Outpatient (AMB) | payer BC, SELFPAY ==
--- NOTE | 2024-06-21 14:57 | MHC.OFFVISWM ---
VS Expanded 06/21/24 15:02 BP 140/86 H Blood Pressure Location Rt brachial Blood Pressure Position Sitting Pulse 64 Pulse Source Pulse Oximeter Temp 97.6 F Temperature Source Temporal Artery Scan Pulse Oximetry 97 Oxygen Delivery Method Room Air Height 5 ft 3 in Weight 160 lb 6.4 oz BMI 28.4 Body Fat % 38.8 Body Fat Mass 62.2 Fat Free Mass 98.2 Visceral Fat Rating 9.0 Body Water % 43.3 Body Water Mass 69.4 Muscle Mass/Score 93.0 Basal Metabolic Rate/Score 1,351 Intake Visit Reasons: (OV) PO LSG 02/05/20 Allergies Iodinated Contrast Media [IV CONTRAST] Allergy (Severe, Verified 06/21/24 15:10) DIFF BREATHING/HIVES Contrast Allergy PreMed Pack Allergy (Mild, Uncoded 05/25/24 15:23) hives STATINS Adverse Reaction (Severe, Uncoded 05/25/24 15:23) myalgias HPI Comments Details: The patient is a pleasant 58-year-old female who returns to the office today. She is approximately 4 years 4 months post sleeve gastrectomy performed on 02/05/2020. Weight today is 160.4 lb with a BMI of 28.4. She states that she had a period of time where her weight went up to approximately 160 lb. She has since changed her approach to include daily exercise. She has joined a rowing group. She states that she is waiting to get an appointment with manager environmental health and safety as she is concerned about menopause and brain fog. Also co incr aches and pains A complaint that she has is of the excess skin of her upper arms. She states that she needs to wear specialized compressive clothing when she runs. 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 She has trained and completed half iron man contest and needed to wear specialized garments for her arms as she gets chafing between her arms and her axilla area from the rubbing of excess skin. She does not have a rash currently, this occurs much more commonly during the warm months and with increased activity. She states that she is being held back exercising and especially running due to her arm discomfort and rash. Rash occurs 2-3 x per month improving with Rx antifungal with recurrance. Doin galicia egg white bite 11 gm total pro built bar overnight oats w almond milk meal 3 oz protein and 3 oz veg granola or fozen berries or lithuanian yogurt drinking 96 oz water exercise: daily. rowing, elliptical, running, bike [phone] jerad per week PFSH Medical History (Updated 05/25/24 @ 15:41 by Judit Johnson PA-C) Colon cancer screening Bilateral renal cysts Breast cancer screening by mammogram Pre-op testing Rosacea Panniculitis Breast asymmetry following reconstructive surgery Adopted Intestinal malabsorption following gastrectomy Migraine Anxiety Eczema Surgical History Hx of varicose vein ligation History of hernia surgery Status post panniculectomy Bariatric surgery status Hx of knee surgery S/P laparoscopic sleeve gastrectomy Hx of section (2003) Hx of laparoscopic gastric banding Hx of umbilical hernia repair (2005) S/P TORIBIO (total abdominal hysterectomy) Hx laparoscopic cholecystectomy (2003) H/O elbow surgery H/O shoulder surgery Family History Father No problems noted. Mother No problems noted. Brother No problems noted. Brother No problems noted. Brother No problems noted. Daughter No problems noted. Daughter No problems noted. 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 Watters Code(s): Z98.84 - Bariatric surgery status Category: Surgical Plan: 2 galicia egg white bite 11 gm total pro built bar Pakistani yogurt with berries meal 3 oz protein and 3 oz veg Half bar if needed Continue exercises she is doing. Additionally, consideration for making her own egg bites in the morning. Discussed adding 1 day of yoga. Plan for follow-up in 2 months. Encouraged to text with any questions or concerns or if difficulty with hunger.
[2024-06-21 15:02] VITALS: BP 140/86; PULSE 64; TEMP 36.4; O2SAT 97; BMI 28.4
--- OUTSIDE RECORDS SUMMARY | 2024-06-21 16:44 | XMS_ITS ---
Author Organization [facility] Address [address] [place] [address] Care Team Providers Care Wood Carver Name Role Phone Cipriano Frost MD Primary Care Provider Chastity Forrester Jr, Randell Jin REASON FOR VISIT pancreatic cyst Encounters Encounter Location Date Provider Diagnosis [facility] [address] [place] [address] 01/19/2024 Randell Forrester Jr PLAN OF TREATMENT Next Appt Details Provider Name:Randell dennis Jr, 01/02/2025 09:00:00 AM, [address] [place] [address], [address], [place], [address],
--- OUTSIDE RECORDS SUMMARY | 2024-06-21 16:44 | XMS_ITS ---
Author Organization [facility] Address [address] [place] [address] Care Team Providers Care Cooler Servicer Name Role Phone Cipriano Frost MD Primary Care Provider Randell Stern Jr REASON FOR VISIT Patient presents today for a pancreatic cyst. Encounters Encounter Location Date Provider Diagnosis [facility] [address] [place] [address] [address] [place] [address] 02/08/2024 Randell Forrester Jr PLAN OF TREATMENT Next Appt Details Provider Name:Randell dennis Jr, 01/02/2025 09:00:00 AM, [address] [place] [address], [address], [place], [address],
--- OUTSIDE RECORDS SUMMARY | 2024-06-21 16:44 | XMS_ITS ---
Author Organization [facility] Address [address] [place] [address] Care Team Providers Care Advertising Representative Name Role Phone Cipriano Frost MD Primary Care Provider Randell Stern Jr [phone] REASON FOR VISIT Mri results Encounters Encounter Location Date Provider Diagnosis [facility] [address] [facility] [address] [place] [address] 03/06/2024 Randell Forrester Jr PLAN OF TREATMENT Next Appt Details Provider Name:Randell dennis Jr, 01/02/2025 09:00:00 AM, [address] [place] [address], [address], [place], [address],
--- OUTSIDE RECORDS SUMMARY | 2024-06-21 16:44 | XMS_ITS | Patient Health Record ---
Author Organization [facility] Address [address] [place] [address] Care Team Providers Care Insurance Loss Control Surveyor Name Role Phone Cipriano Frost MD Primary Care Provider Randell Stern Jr ALLERGIES Allergen (clinical drug ingredient) Drug/Non Drug Allergy documented on EMR Reaction Allergy Type Onset Date Status Cat dander cats (uncoded) Unknown Allergy Acti ve cat scan dye (uncoded) Unknown Allergy Active RESULTS Component Value Reference Range Notes MR abdomen wo/w con Reviewed date:03/14/2024 07:58:34 AM Interpretation: Performing Lab: Notes/Report: [address] [address] Magnetic Resonance Report Signed Patient: Desire Boyle MR#: [id number] 6 : 1965 Acct:[id number] Age/Sex: 59 / F ADM Date: 02/29/24 Loc: HO.MRI Attending Dr: Randell Forrester MD Ordering Physician: Randell Forrester MD Date of Service: 02/29/24 Procedure(s): MR abdomen wo/w con Accession Number(s): [id number] cc: Randell Forrester MD; Cipriano Frost MD [...] 03/09/24 1131 DD/ 0820 TD/TT: 02/29/24 0855 Hotel Attendant: REASON FOR REFERRAL Referring Provider First Name Cipriano Referring Provider Last Name Santosh Referring Provider Speciality Internal M edicine Referred Organization [facility] Referred Provider Randell Forrester Jr Referred Address [address] [place] [address], Referred Provider Specialty Gastroentero logy General Notes [...] Problem Colon cancer screening (Z12.11) Active confirmed 651562870 Problem Encounter for other preprocedural examination (Z01.818) Active confirmed 248251818 Problem Pancreatic cyst (K86.2) Active confirmed 44821993 VITAL SIGNS Temperature 97.8 degrees Fahrenheit 01/02/2024 Blood pressure diastolic 00 mm Hg 01/02/2024 Height 63 in 01/02/2024 Blood pressure systolic 000 mm Hg 01/02/2024 Weight 160 lbs 01/02/2024 BMI 28.34 kg/m2 01/02/2024 Encounters Encounter Location Date Provider Diagnosis [facility] [address] [place] [address] 01/19/2024 Randell Forrester Jr [facility] [address] [place] [address] 02/08/2024 Randell Forrester Jr [facility] [address] [place] [address] 01/02/2024 Randell Forrester Jr Pancreatic cyst K86.2 and Colon cancer screening Z12.11 [facility] [address] [place] [address] 10/24/2023 Randell Forrester Jr [facility] [address] [place] [address] 03/06/2024 Randell Forrester Jr ASSESSMENTS Encounter Date [...] Provider Name:Randell dennis Jr, 01/02/2025 09:00:00 AM, [address] [place] [address], [address], [place], [address], Insurance Providers Payer Name Payer Address Payer Phone Subscriber Number Group Number Insured Name Patient Relationship to Insured Coverage Start Date Coverage End Date [facility] [place] [employer] PROFESSIONAL CLAIMS [address] [place] [address] [id number] 500 DESIRE BOYLE Self - patient is the insured MEDICAL (GENERAL) HISTORY Medical History History ICD Code Rosacea Anxiety Elevated BMI Colonoscopy 11/02, normal, ten-year follo wup Surgical History Surgery Date(Month/Year) Panniculectomy 07/04 Umbilical hernia repair 07/04 Laparoscopic sleeves gastrectomy 07/02 shoulder surgeriesx3 elbow section cholecystectomy partial hysterectomy Left breast lumpectomy
== END 2024-06-21 15:34 | disposition home or self-care (01) ==
PROVIDERS: PCP Internal Medicine; Visit Provider Physician Assistant Surgical
DX: E66.3 Overweight (principal); Z68.28 Body mass index [BMI] 28.0-28.9, adult; Z90.3 Acquired absence of stomach [part of]; Z98.84 Bariatric surgery status
CPT/HCPCS: 99213

== ENCOUNTER → 2024-06-21 14:51 | Outpatient (BNVA) | payer BC, SELFPAY | PROVIDERS: PCP Internal Medicine; Visit Provider Physician Assistant Surgical | DX: Z98.84 Bariatric surgery status (principal); R79.89 Other specified abnormal findings of blood chemistry; R53.83 Other fatigue ==

== ENCOUNTER → 2024-06-22 16:32 | Outpatient (BNV) | payer BC, SELFPAY | PROVIDERS: PCP Internal Medicine; Visit Provider Radiology Diagnostic Radiology | DX: M75.111 Incomplete rotator cuff tear or rupture of right shoulder, not specified as traumatic (principal) | CPT/HCPCS: 73221 ==

== ENCOUNTER 2024-06-22 16:34 | Outpatient (REF) | payer BC, SELFPAY ==
--- NOTE | ~2024-06-22 | MR_ITS ---
EXAMINATION: MRI RIGHT SHOULDER WITHOUT CONTRAST HISTORY: M67.911 - Unspecified disorder of synovium and tendon, right shoulder COMPARISON: Correlation is made with plain films of the left shoulder dated 03/26/2014. TECHNIQUE: Coronal T1, T2, and fat suppressed T2, axial fat suppressed proton density, and sagittal T2 weighted MR images of the right shoulder were obtained. FINDINGS: There is mild motion artifact. Bone marrow signal intensity is normal. There is mild osteoarthritis of the AC joint with cartilage loss. The glenohumeral joint is maintained. There is no glenohumeral joint effusion. There is mild fraying of the bursal surface of the distal supraspinatus tendon consistent with a partial tear. A tiny focus of fluid signal intensity is noted extending through the full-thickness of the anterior aspect of the tendon at its insertion on the greater tuberosity of the humerus, consistent with a full-thickness tear. There is trace fluid in the subdeltoid bursa. There is no tendon retraction or muscle atrophy. The infraspinatus, teres minor, and subscapularis tendons are intact. The biceps tendon is normally located. The glenoid labrum is grossly unremarkable in appearance although evaluation is limited by lack of a joint effusion. MR/MR shoulder RT wo con IMPRESSION: Bursal surface partial tear of the distal supraspinatus tendon with a small full-thickness component anteriorly at its insertion. Electronically signed by: Toni Hunter MD 06/26/2024 08:45 AM JONY
== END 2024-06-22 16:35 | disposition home or self-care (01) ==
LOC: HO.MRI 16:34
PROVIDERS: PCP Internal Medicine; Visit Provider Orthopaedic Surgery
DX: M67.911 Unspecified disorder of synovium and tendon, right shoulder (principal)
CPT/HCPCS: 73221

== ENCOUNTER 2024-07-26 10:51 | Outpatient (AMB) | payer BC, SELFPAY ==
[2024-07-26 10:52] VITALS: BMI 28.3
--- NOTE | 2024-07-26 10:52 | MHC.OFFVIS ---
Vital Signs 07/26/24 10:52 Height 5 ft 3 in Weight 160 lb BMI 28.3 Intake Visit Reasons: OV- Right shoulder MRI review Intake Note: Rashaad is a 58 year old right hand dominant female who presents today for a Right Shoulder MRI review. She received a subacromial shoulder injection on 01/16/24. Injections and PT have been minimally helpful. IMPRESSION: Bursal surface partial tear of the distal supraspinatus tendon with a small full-thickness component anteriorly at its insertion. Allergies Iodinated Contrast Media [IV CONTRAST] Allergy (Severe, Verified 06/21/24 15:10) DIFF BREATHING/HIVES Contrast Allergy PreMed Pack Allergy (Mild, Uncoded 05/25/24 15:23) hives STATINS Adverse Reaction (Severe, Uncoded 05/25/24 15:23) myalgias HPI HPI OV- Right shoulder MRI review: Details: Rashaad is an 89-year-old woman who comes in today for MRI review. I have been treating her off and on now for some time for her right shoulder. I injected her about 6 months ago in his was mildly helpful. She states over the last few months however she has been feeling better. She has started to roll with greater intensity and is unsure if she wants to consider shoulder surgery. She states when she does have pain in his posterior herself deltoid pain. She has had 2 prior subacromial decompressions in the shoulder by my former partner. [facility] Medical History (Updated 07/26/24 @ 16:09 by Stephan Moulton MD) Colon cancer screening Bilateral renal cysts Breast cancer screening by mammogram Pre-op testing Rosacea Panniculitis Breast asymmetry following reconstructive surgery Adopted Intestinal malabsorption following gastrectomy Migraine Anxiety Eczema Surgical History Hx of varicose vein ligation History of hernia surgery Status post panniculectomy Bariatric surgery status Hx of knee surgery S/P laparoscopic sleeve gastrectomy Hx of section (2003) Hx of laparoscopic gastric banding Hx of umbilical hernia repair (2005) S/P TORIBIO (total abdominal hysterectomy) Hx laparoscopic cholecystectomy (2003) H/O elbow surgery H/O shoulder surgery Family History Father No problems noted. Mother No problems noted. Brother No problems noted. Brother No problems noted. Brother No problems noted. Daughter No problems noted. Daughter No problems noted. 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 Mild (4+/5) weakness with empty can testing. 4+/5 external rotation at 0 degrees. Negative lift-off, negative lag, negative [place]'s. Results Reviewed Results Reviewed: I personally reviewed the MR images. IMPRESSION: Bursal surface partial tear of the distal supraspinatus tendon with a small full-thickness component anteriorly at its insertion. Assessment & Plan Assessment & Plan (1) Rotator cuff tear, right: Code(s): M75.101 - Unspecified rotator cuff tear or rupture of right shoulder, not specified as traumatic Category: Medical Plan: This is a 59-year-old woman with a rotator cuff tear of the right shoulder. It is small and non traumatic and her exam is less impressive than it was 6 months ago. I discussed the ramifications of surgery versus nonoperative management of this condition. She is improving and I do not strongly recommend surgery at this time. I discussed this with her and she would like to proceed with nonsurgical treatment. Should she feel that she is worsening at any time she can return to see me. Coding Level of Care Code Est Pt Level 4 (85184) Diagnoses Rotator cuff tear, right M75.101
--- OUTSIDE RECORDS SUMMARY | 2024-07-26 11:33 | XMS_ITS ---
Author Organization [facility] Address [address] [place] [address] Care Team Providers Care Cell Tester Name Role Phone Cipriano Frost MD Primary Care Provider Randell Stern Jr [phone] REASON FOR VISIT Mri results Encounters Encounter Location Date Provider Diagnosis [facility] [address] [place] [address] 03/06/2024 Randell Forrester Jr PLAN OF TREATMENT Next Appt Details Provider Name:Randell dennis Jr, 01/02/2025 09:00:00 AM, [address] [place] [address], [address], [place], [address],
--- OUTSIDE RECORDS SUMMARY | 2024-07-26 11:33 | XMS_ITS ---
Author Organization [facility] Address [address] [place] [address] Care Team Providers Care Venture Capitalist Name Role Phone Cipriano Frost MD Primary Care Provider Randell Stern Jr [phone] REASON FOR VISIT Patient presents today for a pancreatic cyst. Encounters Encounter Location Date Provider Diagnosis [facility] [address] [place] [address] [address] [place] [address] 02/08/2024 Randell Forrester Jr PLAN OF TREATMENT Next Appt Details Provider Name:Randell dennis Jr, 01/02/2025 09:00:00 AM, [address] [place] [address], [address], [place], [address],
--- OUTSIDE RECORDS SUMMARY | 2024-07-26 11:33 | XMS_ITS | Patient Health Record ---
Author Organization [facility] Address [address] [place] [address] Care Team Providers Care Washcoat Wiper Name Role Phone Cipriano Frost MD Primary Care Provider Randell Stern Jr ALLERGIES Allergen (clinical drug ingredient) Drug/Non Drug Allergy documented on EMR Reaction Allergy Type Onset Date Status Cat dander cats (uncoded) Unknown Allergy Acti ve cat scan dye (uncoded) Unknown Allergy Active RESULTS Component Value Reference Range Notes MR abdomen wo/w con Reviewed date:03/14/2024 07:58:34 AM Interpretation: Performing Lab: Notes/Report: [address] [address] Magnetic Resonance Report Signed Patient: Desire Boyle MR#: [id number] 6 : 1965 Acct:[id number] Age/Sex: 59 / F ADM Date: 02/29/24 Loc: HO.MRI Attending Dr: Randell Forrester MD Ordering Physician: Randell Forrester MD Date of Service: 02/29/24 Procedure(s): MR abdomen wo/w con Accession Number(s): [id number] cc: Randell Forrester MD; Cipriano Frost MD [...] 03/09/24 1131 DD/ 0820 TD/TT: 02/29/24 0855 Drier And Grinder Tender: REASON FOR REFERRAL Referring Provider First Name Cipriano Referring Provider Last Name Santosh Referring Provider Speciality Internal M edicine Referred Organization [facility] Referred Provider Randell Forrester Jr Referred Address [address] [place] [id number], Referred Provider Specialty Gastroentero logy General Notes [...] Problem Colon cancer screening (Z12.11) Active confirmed 098427151 Problem Encounter for other preprocedural examination (Z01.818) Active confirmed 679575219 Problem Pancreatic cyst (K86.2) Active confirmed [id number] VITAL SIGNS Temperature 97.8 degrees Fahrenheit 01/02/2024 Blood pressure diastolic 00 mm Hg 01/02/2024 Height 63 in 01/02/2024 Blood pressure systolic 000 mm Hg 01/02/2024 Weight 160 lbs 01/02/2024 BMI 28.34 kg/m2 01/02/2024 Encounters Encounter Location Date Provider Diagnosis [facility] [address] [place] [phone] 01/19/2024 Randell Forrester Jr [facility] [address] [place] [phone] 02/08/2024 Randell Forrester Jr [facility] [address] [place] [phone] 01/02/2024 Randell Forrester Jr Pancreatic cyst K86.2 and Colon cancer screening Z12.11 [facility] [address] [place] [phone] 10/24/2023 Randell Forrester Jr [facility] [address] [place] [phone] 03/06/2024 Randell Forrester Jr ASSESSMENTS Encounter Date [...] Provider Name:Randell dennis Jr, 01/02/2025 09:00:00 AM, [address] [place] [address], [address], [place], [address], Insurance Providers Payer Name Payer Address Payer Phone Subscriber Number Group Number Insured Name Patient Relationship to Insured Coverage Start Date Coverage End Date [facility] [employer] PROF[employer]AL CLAIMS [address] [place] [address] [id number] DESIRE BOYLE Self - patient is the insured MEDICAL (GENERAL) HISTORY Medical History History ICD Code Rosacea Anxiety Elevated BMI Colonoscopy 11/02, normal, ten-year follo wup Surgical History Surgery Date(Month/Year) Panniculectomy 07/04 Umbilical hernia repair 07/04 Laparoscopic sleeves gastrectomy 07/02 shoulder surgeriesx3 elbow section cholecystectomy partial hysterectomy Left breast lumpectomy
--- OUTSIDE RECORDS SUMMARY | 2024-07-26 11:34 | XMS_ITS ---
Author Organization [facility] Address [address] [place] [address] Care Team Providers Care Youth Services Librarian Name Role Phone Cipriano Frost MD Primary Care Provider Chastity Forrester Jr, Randell Jin [phone] REASON FOR VISIT pancreatic cyst Encounters Encounter Location Date Provider Diagnosis [facility] [address] [place] [address] 01/19/2024 Randell Forrester Jr PLAN OF TREATMENT Next Appt Details Provider Name:Randell dennis Jr, 01/02/2025 09:00:00 AM, [address] [place] [address], [address], [place], [address],
== END 2024-07-26 11:26 | disposition home or self-care (01) ==
PROVIDERS: PCP Internal Medicine; Visit Provider Orthopaedic Surgery
DX: M75.101 Unspecified rotator cuff tear or rupture of right shoulder, not specified as traumatic (principal)
CPT/HCPCS: 99214

== ENCOUNTER 2024-08-30 14:50 | Outpatient (AMB) | payer BC, SELFPAY ==
--- NOTE | 2024-08-30 14:52 | A.OFFVIS_ITS ---
VS Expanded 08/30/24 15:01 BP 141/68 H Blood Pressure Location Rt brachial Blood Pressure Position Sitting Pulse 60 Pulse Source Pulse Oximeter Temp 98.2 F Temperature Source Temporal Artery Scan Pulse Oximetry 98 Oxygen Delivery Method Room Air Height 5 ft 3 in Weight 156 lb 12.8 oz BMI 27.8 Body Fat % 37.1 Body Fat Mass 58.2 Fat Free Mass 98.6 Visceral Fat Rating 9.0 Body Water % 44.6 Body Water Mass 69.8 Muscle Mass/Score 93.4 Basal Metabolic Rate/Score 1,349 Intake Visit Reasons: (OV) PO LSG 02/05/20 Collections Manager Required: No Allergies Iodinated Contrast Media [IV CONTRAST] Allergy (Severe, Verified 08/30/24 15:00) DIFF BREATHING/HIVES Contrast Allergy PreMed Pack Allergy (Mild, Uncoded 05/25/24 15:23) hives STATINS Adverse Reaction (Severe, Uncoded 05/25/24 15:23) myalgias Medication List - Last Reconciled 08/30/24 by BAYRON Haines calcium carbonate-vitamin D3 600 mg-10 mcg (400 unit) (Calcium 600 + D(3)) 1 tab PO DAILY clotrimazole 1% (Antifungal (clotrimazole)) 1 appl topical BID lorazepam 0.5 mg PO DAILY PRN magnesium 250 mg PO DAILY multivitamin (Multiple Vitamins tablet) 1 tab PO DAILY sumatriptan succinate take 1 tab at onset of headache; if no relief may repeat 1 tab after at least 2 hrs; max = 4 tabs/24 hr PO HPI Comments Details: The patient is a pleasant 59-year-old female who returns to the office today. She is approximately 4 years 7 months post sleeve gastrectomy performed on . Weight today is 156.8 lb with a BMI of 27.8. She states that she had a period of time where her weight went up to approximately 160 lb. She has since changed her approach to include daily exercise. She has joined a rowing group. A complaint that she has is of the excess skin of her upper arms. She states that she needs to wear specialized compressive clothing when she runs. 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 She has trained and completed half iron man contest and needed to wear specialized garments for her arms as she gets chafing between her arms and her axilla area from the rubbing of excess skin. She does not have a rash currently, this occurs much more commonly during the warm months and with increased activity. She states that she is being held back exercising and especially running due to her arm discomfort and rash. Rash occurs 2-3 x per month improving with Rx antifungal with recurrance. Doing: Receiving nutritional counseling from outpatient registered dietitian states that she is having between 110 and 140 g of protein per day drinking 96 oz water exercise: daily. rowing, elliptical, running, bike [id number] jerad per week PFSH Medical History (Updated 07/26/24 @ 16:09 by Stephan Moulton MD) Colon cancer screening Bilateral renal cysts Breast cancer screening by mammogram Pre-op testing Rosacea Panniculitis Breast asymmetry following reconstructive surgery Adopted Intestinal malabsorption following gastrectomy Migraine Anxiety Eczema Surgical History Hx of varicose vein ligation History of hernia surgery Status post panniculectomy Bariatric surgery status Hx of knee surgery S/P laparoscopic sleeve gastrectomy Hx of section (2003) Hx of laparoscopic gastric banding Hx of umbilical hernia repair (2005) S/P TORIBIO (total abdominal hysterectomy) Hx laparoscopic cholecystectomy (2003) H/O elbow surgery H/O shoulder surgery Family History Father No problems noted. Mother No problems noted. Brother No problems noted. Brother No problems noted. Brother No problems noted. Daughter No problems noted. Daughter No problems noted. 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 Cognitive needs: No Hearing needs: No Vision needs: Yes (Glasses) Physical Exam Vital Signs: Last Vital Signs Temp 98.2 F 08/30/24 15:01 Pulse 60 08/30/24 15:01 BP 141/68 H 08/30/24 15:01 Pulse Ox 98 08/30/24 15:01 Oxygen Delivery Method Room Air 08/30/24 15:01 BMI result Body Mass Index 27.8 Const General: healthy appearing and no acute distress Resp Effort & Inspection: normal respiratory effort Auscultation: clear to auscultation bilaterally Cardio Rate: regular rate Rhythm: regular rhythm GI Auscultation: normal bowel sounds Skin Other: There is some excess skin of the arms however no acute rash. Extrem General: Yes normal to inspection Assessment & Plan Assessment & Plan (1) S/P laparoscopic sleeve gastrectomy: Comment: January 2020 Dr. Watters Code(s): Z98.84 - Bariatric surgery status Category: Surgical Plan: Patient is satisfied with the direction of her weight loss. She is receiving dietary recommendations from outside registered dietitian and states that she is feeling better, feeling stronger, and is overall very happy with the direction of her care. I did advise her to be aware that excessive protein can impact kidney function. She will return to the office in January for her 5 year postop visit.
[2024-08-30 15:01] VITALS: BP 141/68; PULSE 60; TEMP 36.8; O2SAT 98; BMI 27.8
== END 2024-08-30 15:33 | disposition home or self-care (01) ==
LOC: HO.HBS 14:51
PROVIDERS: PCP Internal Medicine; Visit Provider Physician Assistant Surgical
DX: E66.3 Overweight (principal); Z68.27 Body mass index [BMI] 27.0-27.9, adult; Z90.3 Acquired absence of stomach [part of]; Z98.84 Bariatric surgery status
CPT/HCPCS: 99213

== ENCOUNTER → 2024-08-30 14:50 | Outpatient (BNVA) | payer BC, SELFPAY | PROVIDERS: PCP Internal Medicine; Visit Provider Physician Assistant Surgical | DX: Z98.84 Bariatric surgery status (principal); R79.89 Other specified abnormal findings of blood chemistry; R53.83 Other fatigue ==

== ENCOUNTER 2024-11-27 14:12 | Outpatient (AMB) | payer BC, SELFPAY ==
--- NOTE | 2024-11-27 14:15 | A.OFFPC_ITS ---
Vital Signs 11/27/24 14:16 Height 5 ft 3 in Weight 165 lb 8 oz BMI 29.3 BP 116/78 Blood Pressure Location Lt brachial Position Sitting Pulse 52 Pulse Source Pulse Oximeter Pulse Oximetry (%) 96 Oxygen Delivery Method Room Air Intake Visit Reasons: diarrhea that starts and stops the last 5 weeks Cloth Drier Required: No Accompanied by: Self / Same As Patient Allergies Iodinated Contrast Media [IV CONTRAST] Allergy (Severe, Verified 11/27/24 14:16) DIFF BREATHING/HIVES Contrast Allergy PreMed Pack Allergy (Mild, Uncoded 11/27/24 14:16) hives STATINS Adverse Reaction (Severe, Uncoded 11/27/24 14:16) myalgias Tobacco use date assessed: 11/27/24 Dental Screening Dental Screen Date: 11/27/24 Did you have a dental visit in the last 12 months?: Yes Did you have a dental problem in the last 6 months where you did not have access to dental care?: No Was dental information given to patient?: Patient has dentist HPI diarrhea that starts and stops the last 5 weeks HPI Details abdominal midline, irrgegular bowel movement that has been going since 09/2024, [facility] Medical History (Updated 11/27/24 @ 14:45 by Cipriano Frost MD) Colon cancer screening Bilateral renal cysts Breast cancer screening by mammogram Pre-op testing Rosacea Panniculitis Breast asymmetry following reconstructive surgery Adopted Intestinal malabsorption following gastrectomy Migraine Anxiety Eczema Surgical History Hx of varicose vein ligation History of hernia surgery Status post panniculectomy Bariatric surgery status Hx of knee surgery S/P laparoscopic sleeve gastrectomy Hx of section (2003) Hx of laparoscopic gastric banding Hx of umbilical hernia repair (2005) S/P TORIBIO (total abdominal hysterectomy) Hx laparoscopic cholecystectomy (2003) H/O elbow surgery H/O shoulder surgery Family History Father No problems noted. Mother No problems noted. Brother No problems noted. Brother No problems noted. Brother No problems noted. Daughter No problems noted. Daughter No problems noted. 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 1. Little interest or pleasure in doing things: not at all 2. Feeling down, depressed, or hopeless: not at all 3. Trouble falling or staying asleep, or sleeping too much: several days 4. Feeling tired or having little energy: several days 5. Poor appetite or overeating: several days 6. Feeling bad about yourself - or that you are a failure or have let yourself or your family down: not at all 7. Trouble concentrating on things, such as reading the newspaper or watching television: not at all 8. Moving or speaking so slowly that other people could have noticed. Or the opposite - being so fidgety or restless that you have been moving around a lot more than usual: not at all 9. Thoughts that you would be better off or of hurting yourself in some way: not at all Total score: 3 Source: Developed by Drs. Toni Kay, Cande Conn, Michael Guajardo and colleagues, with an educational amado from [employer]. Thrive Questionnaire Date Thrive assessed: 11/27/24 I am a: Patient What is your living situation today?: I have a steady place to live Within the past 12 months, did the food you bought not last and you didn't have the money to get more?: Never true Within the past 12 months, did you worry whether your food would run out before you got money to buy more?: Never true Do you have trouble paying for medicines?: No Do you have trouble getting transportation to medical appointments?: No Do you have trouble paying your heating and electricity bill?: No Do you have trouble taking care of your child, family member or friend?: No Do you have trouble with day-to-day activities such as bathing, preparing meals, shopping, managing finances, etc.?: No Are you currently unemployed and looking for a job?: No Are you interested in more education?: No Please select the resources that you would like help with: None Currently or been in a relationship where the following occur: No concerns reported THRIVE Score: 0 AUDIT C Alcohol Use Questionnaire (AUDIT-C) 1. How often do you have a drink containing alcohol?: 2-4 times a month 2. How many drinks containing alcohol do you have on a typical day when you are drinking?: 1 or 2 3. How often do you have six or more drinks on one occasion?: Never Total Score: 2 TERESA-7 AMB Questionnaire TERESA-7 Date TERESA - 7 assessed: 11/27/24 Feeling nervous, anxious, or on edge: 1 = Several days Not being able to stop or control worryin = Not at all Worrying too much about different things: 0 = Not at all Trouble relaxin = Not at all Being so restless that it is hard to sit still: 0 = Not at all Becoming easily annoyed or irritable: 0 = Not at all Feeling afraid as if something awful might happen: 0 = Not at all Total TERESA-7 score (0-4 normal; 5-9 mild; 10-14 moderate; 15-21 severe): 1 Source: Developed by Drs. Toni Kay, Cande Conn, Michael Guajardo and colleagues, with an educational amado from [employer]. Physical exam (Primary Care) Vital Signs: Last Vital Signs Pulse 52 11/27/24 14:16 BP 116/78 11/27/24 14:16 Pulse Ox 96 11/27/24 14:16 Oxygen Delivery Method Room Air 11/27/24 14:16 BMI result Body Mass Index 29.3 Tobacco/Smoking Status: Tobacco use Status Tobacco use date assessed 11/27/24 11/27/24 14:21 Patient Tobacco Use Status Never used Tobacco 11/27/24 14:15 e-Cigarette/Vaping Use Never Used 11/27/24 14:15 PHQ-9: PHQ-9 Score PHQ-9: Total score 3 11/27/24 14:38 Thrive Assessment: Date of Thrive Assessment Date Thrive assessed 11/27/24 11/27/24 14:21 Currently or been in a relationship where the following occur: No concerns reported Const General: alert; No acute distress Eyes Conjunctivae: conjunctivae normal Resp Auscultation: clear to auscultation bilaterally Cardio Rate: regular rate Rhythm: regular rhythm GI Inspection: Yes normal to inspection Extrem General: Yes normal to inspection and No edema Coding Level of Care Code Est Pt Level 4 (68571) Complex EM visit Add On G2211 Diagnoses S/P laparoscopic sleeve gastrectomy Z98.84 Generalized anxiety disorder F41.1 GERD (gastroesophageal reflux disease) K21.9 Overweight (BMI 25.0-29.9) E66.3 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 Watters Code(s): Z98.84 - Bariatric surgery status Category: Surgical Plan: Need to follow-up with bariatric (2) Generalized anxiety disorder: Code(s): F41.1 - Generalized anxiety disorder Category: Medical Plan: Continue with counseling and therapy (3) GERD (gastroesophageal reflux disease): Code(s): K21.9 - Gastro-esophageal reflux disease without esophagitis Category: Medical Plan: Avoid the foods that causes that usually spicy foods, tomato products, juices, coffee, soda and foods that your sensitive to. After eating do not lie down, allow 3-4 hours before in lie down. And keep the head of bed above 30 degrees to avoid the acid from going up. (4) Overweight (BMI 25.0-29.9): Code(s): E66.3 - Overweight Category: Medical Plan: Continue with diet and exercise (5) Postgastrectomy malabsorption: Code(s): K91.2 - Postsurgical malabsorption, not elsewhere classified; Z90.3 - Acquired absence of stomach [part of] Category: Medical Plan: Continue to follow-up with bariatric (6) Diarrhea: Code(s): R19.7 - Diarrhea, unspecified Category: Medical Plan History of Present Illness The patient is a 59-year-old female presenting for follow-up care and management of multiple chronic conditions. She has a history of generalized anxiety disorder, which has been managed with counseling and therapy, although she is not currently seeing a counselor regularly. The patient underwent sleeve gastrectomy in 2019, which has led to issues with nutrient absorption. She reports experiencing diarrhea at least once a week since September, which has been debilitating and affects her daily activities. The diarrhea is characterized by alternating stool consistency and is sometimes accompanied by abdominal cramping. In 2019, the patient was diagnosed with an intraductal papilloma in the left breast, and her mammogram is currently up to date. The patient has a history of right shoulder pain due to a rotator cuff tear, diagnosed in July. She has been managing the condition with conservative measures, and reports some improvement in strength and pain. Her last blood work in March 2024 showed normal results, including blood count, electrolytes, renal function, blood sugar, iron levels, cholesterol, vitamin D, and thyroid function. She continues to follow up with bariatrics and is advised to maintain a diet and exercise regimen. Health Maintenance - Mammogram is up to date - Colonoscopy performed in October 2022 - Advised to maintain diet and exercise regimen Social History - Exercise: Engages in cycling, recently completed a 50-mile bike ride - Nutrition: Consumes a diet including oats, chicken, and vegetables; advised to avoid dairy temporarily Review of Systems - Gastrointestinal: Reports diarrhea at least once a week since September, with alternating stool consistency and abdominal cramping - Musculoskeletal: Reports right shoulder pain due to rotator cuff tear, with some improvement in strength and pain Physical Exam - Musculoskeletal: No pain on palpation of the back - Gastrointestinal: No abdominal pain on palpation Results - Labs: Normal blood count, electrolytes, renal function, blood sugar, iron levels, cholesterol (LDL 108), vitamin D, and thyroid function as of March 2024 Plan The patient will continue to follow up with bariatrics to manage post-sleeve gastrectomy nutritional absorption issues. For the diarrhea, stool testing will be conducted to check for C. difficile, ova and parasites, and white blood cells. The patient is advised to avoid dairy products temporarily to assess their impact on gastrointestinal symptoms. Blood work will be ordered to update her lab results, given the time elapsed since the last tests. The patient is encouraged to maintain hydration, especially during physical activities, to prevent cramping. Magnesium supplementation will be discontinued as it may contribute to diarrhea. For the rotator cuff tear, conservative management will continue, and surgical intervention will be reconsidered if symptoms worsen. Patient was informed and verbally consented to the use of an ambient scribe for clinic note documentation during this visit. Discussion Notes I discussed with the patient the importance of continuing follow-up with bariatrics to manage her post-sleeve gastrectomy nutritional issues. We talked about conducting stool tests to identify any underlying causes of her diarrhea, and I advised her to avoid dairy products temporarily. I emphasized the need for hydration during physical activities to prevent cramping and recommended discontinuing magnesium supplementation. We agreed to continue conservative management for her rotator cuff tear, with the option of surgery if symptoms worsen. Patient Instructions - Follow up with bariatrics for nutritional management. - Avoid dairy products temporarily to see if symptoms improve. - Stay hydrated, especially during physical activities. - Discontinue magnesium supplements. - Continue conservative management for shoulder pain and consider surgery if symptoms worsen. Orders: Orders CDiff Gene PCR Today R19.7 - Diarrhea, unspecified Comprehensive Met. Panel Today R19.7 - Diarrhea, unspecified Free T4 (Free Thyroxine) Today R19.7 - Diarrhea, unspecified Lipid Panel Today E78.00 - Pure hypercholesterolemia, unspecified, R19.7 - Diarrhea, unspecified Vitamin D 25-OH Total Today R19.7 - Diarrhea, unspecified Leukocytes Stool Qualitative Today R19.7 - Diarrhea, unspecified Ova and Parasite Today R19.7 - Diarrhea, unspecified Complete Blood Count Auto Diff Today R19.7 - Diarrhea, unspecified Thyroid Stimulating Hormone Today R19.7 - Diarrhea, unspecified Vitamin B12 and Folate Today R19.7 - Diarrhea, unspecified UA CC w/rflx Micro + Cult Today R19.7 - Diarrhea, unspecified, R30.0 - Dysuria Hemoglobin A1c Today R19.7 - Diarrhea, unspecified
[2024-11-27 14:16] VITALS: BP 116/78; PULSE 52; O2SAT 96; BMI 29.3
--- OUTSIDE RECORDS SUMMARY | 2024-11-27 16:24 | XMS_ITS | Patient Health Record ---
Author Organization [facility] Address [address] [place] [address] Care Team Providers Care Disulfurizer Tender Name Role Phone Cipriano Frost MD Primary Care Provider Chastity e Randell Forrester Jr [phone] Allergies Allergen (clinical drug ingredient) Drug/Non Drug Allergy documented on EMR Reaction Allergy Type Onset Date Status cats (uncoded) Unknown Allergy Activ e cat scan dye (uncoded) Unknown Allergy Active Results Component Value Reference Range Notes MR abdomen wo/w con Reviewed date:03/14/2024 07:58:34 AM Interpretation: Performing Lab: Notes/Report: [address] [address] Magnetic Resonance Report Signed Patient: Desire Boyle MR#: [id number] 6 : 1965 Acct:[id number] Age/Sex: 59 / F ADM Date: 02/29/24 Loc: HO.MRI Attending Dr: Randell Forrester MD Ordering Physician: Randell Forrester MD Date of Service: 02/29/24 Procedure(s): MR abdomen wo/w con Accession Number(s): [id number] cc: Randell Forrester MD; Cipriano Frost MD [...] Efraín Shepard MD 03/09/2024 11:31 AM EDT Dictated By: Keenan Shepard MD Signed By: <Electronically signed by Keenan Shepard MD in OV> 03/09/24 1131 DD/ 0820 TD/TT: 02/29/24 0855 Oil Analyst: [place] [id number] Magnetic Resonance Report Signed Patient: Karen Boyle MR#: [id number] 6 : 1965 Acct:[id number] Age/Sex: 59 / F ADM Date: 02/29/24 Loc: HO.MRI Attending Dr: Randell Forrester MD Ordering Physician: Randell Forrester MD Date of Service: 02/29/24 Procedure(s): MR abdomen wo/w con Accession Number(s): [id number] cc: Randell Forrester MD; Cipriano Frost MD EXAMINATION: MR ABDOMEN WITHOUT A ND WITH CONTRAST CLINICAL INFORMATION: Follow-up pancreatic cyst. COMPARISON: February 17, 2023 TECHNIQUE: MR abdomen was perfo rmed without and with use of 7.5 mL intravenous Gadavist gadolinium contrast. Postcontrast images are performed in multiphase dynamic s equences. Imaging was performed in 3 planes. MRCP was also performed. FINDINGS: LUNG BASES: No pleur al or pericardial effusion. Small hiatal hernia. LIVER, GALLBLADDER, AND BILIARY TREE: The liver is normal in size, smooth in contour, a nd normal in signal. No focal hepatic lesion or biliary ductal dilat ation is present. The common duct measures 7 mm at the jessee hepatis. N o intraductal filling defects. The gallbladder is surgically absent. PANCREAS: No ductal dilatation. Stable 4 mm cystic lesion in the tail the pancreas. No ledy id component. No abnormal enhancement. No peripancreatic stranding. SPLEEN: Not enlarged. ADRENAL GLANDS: No adrenal mass. KIDNEYS AND URETERS: The kidneys are normal in size, shape, and enhance symmetrically. No hy dronephrosis. No perinephric stranding. GASTROINTESTINAL TRA CT: No bowel obstruction. No ascites or fluid collection. LYMPH NODES: No bulk y lymphadenopathy. VASCULAR: Normal jerad iber abdominal aorta. M R/MR abdomen wo/w con IMPRESSION: Stable examination. No change in 4 mm cystic lesion in the tail of the pancreas. Follow-up imaging in one year is recommended. Electronically mati d by: Efraín Sheaprd MD 03/09/2024 11:31 AM EDT RP Dictated By: Keenan Shepard MD Signed By: <Deanna marlow signed by Keenan Shepard MD in OV> 03/09/24 1131 DD/ 0820 TD/TT: 02/29/24 0855 Oil Analyst: Reason For Referral Referring Provider First Name Cipriano Referring Provider Last Name Santosh Referring Provider Speciality Internal M edicine Referred Organization [facility] Referred Provider Randell Forrester Jr Referred Address [address] [place] [address],[place], [place],[address], Referred Provider Specialty Gastroentero logy General Notes Blanche Qureshi 024 01:16:21 PM EDT > requested an o blue referral from Dr. Frost's office for visit with Dr. Forrester on 02-08-2024 Referral Priority Routine Medications Medication SIG (Take, Route, Frequency, Duration) Notes Start Date End Date Status LORazepam 0.5 MG Oral for 30 as needed A ctive Doxycycline Hyclate 20 MG Oral for 90 Active Multivitamin Active Calcium Active Magnesium Active Vitamin D Active Immunizations Vaccine Route Administration Date Status Comme nts Influenza Unknown 03/18/2022 Administered Influenza Unknown 04/05/2023 Administered Social History Tobacco Use: Social History Observation Description Date Details (start date - stop date) Never Smoker NA - NA Tobacco Use/Smoking Question Answer Notes Patient is [...] Never (0 point) Points 0 Interpretation Negative Problems Problem Type SNOMED Code ICD Code Onset Dates Problem Status W/U Status Risk Notes Problem 777317976 Colon cancer screening (Z12.11) Active confirmed Problem 127337959 Encounter for other preprocedural examination (Z01.818) Active confirmed Problem 99775850 Pancreatic cyst (K86.2) Active confirmed Vital Signs Temperature 97.8 degrees Fahrenheit 01/02/2024 Blood pressure diastolic 00 mm Hg 01/02/2024 Height 63 in 01/02/2024 Blood pressure systolic 000 mm Hg 01/02/2024 Weight 160 lbs 01/02/2024 BMI 28.34 kg/m2 01/02/2024 Encounters Encounter Location Date Provider Diagnosis [facility] [address] [place] [id number] 01/02/2024 Randell Forrester Jr Pancreatic cyst K86.2 and Colon cancer screening Z12.11 [facility] [address] [place] [phone] 03/06/2024 Randell Forrester Jr Assessments Encounter Date Diagnosis (ICD Code) Assessment Notes Treatment Notes Treatment Clinical Notes Section Notes 01/02/2024 Colon cancer screening (ICD-10 - Z12.11) She is doing well. She is up-to-date on colorectal cancer screening. We discussed pancreatic cyst in detail today. We recommended followup MRI in February. She will see us in the office in one year. 01/02/2024 Pancreatic cyst (ICD-10 - K86.2) Colonoscopy material was printed She is doing well. She is up-to-date on colorectal cancer screening. We discussed pancreatic cyst in detail today. We recommended followup MRI in February. She will see us in the office in one year. Plan Of Treatment Pending Test Test Name Order Date MRI ABD W&WO CONTRAST 01/02/2024 Future Test Test Name Order Date COLONOSCOPY 09/23/2022 Next Appt Details Provider Name:Randell dennis , 01/02/2025 09:00:00 AM, [address] [place] [address], [address], [place], [address], Insurance Providers Payer Name Payer Address Payer Phone Subscriber Number Group Number Insured Name Patient Relationship to Insured Coverage Start Date Coverage End Date [facility] [place] [employer] [address] [place] [address] [id number] DESIRE BOYLE Self - patient is the insured Medical (General) History Medical History History ICD Code Rosacea Anxiety Elevated BMI Colonoscopy 11/02, normal, ten-year follo wup Surgical History Surgery Date(Month/Year) Panniculectomy 07/04 Umbilical hernia repair 07/04 Laparoscopic sleeves gastrectomy 07/02 shoulder surgeriesx3 elbow section cholecystectomy partial hysterectomy Left breast lumpectomy
== END 2024-11-27 14:55 | disposition home or self-care (01) ==
LOC: HO.HMCH 14:13
PROVIDERS: PCP Internal Medicine; Visit Provider Internal Medicine
DX: Z98.84 Bariatric surgery status (principal); F41.1 Generalized anxiety disorder; K21.9 Gastro-esophageal reflux disease without esophagitis; E66.3 Overweight; K91.2 Postsurgical malabsorption, not elsewhere classified; Z90.3 Acquired absence of stomach [part of]; R19.7 Diarrhea, unspecified

== ENCOUNTER → 2024-11-27 14:12 | Outpatient (BNVA) | payer BC, SELFPAY | PROVIDERS: PCP Internal Medicine; Visit Provider Internal Medicine ==

== ENCOUNTER 2024-11-29 06:58 | Outpatient (REF) | payer BC, SELFPAY ==
[2024-11-29 07:14] LABS: MANUAL DIFF FLAG NO
[2024-11-29 07:51] LABS: Basophils Percent Auto 0.5 % (0-2); Eosinophils Absolute Auto 0.1 X10*3/uL (0.0-0.4); Hemoglobin 13.5 g/dl (12.0-16.0); Imm Gran Abs Auto 0.03 X10*3/uL (0.00-0.03); Imm Gran Pct Auto 0.5 % (0.0-0.4); Lymphocytes Absolute Auto 2.3 X10*3/uL (1.2-4.9); Lymphocytes Percent Auto 37.4 % (20-40); Mean Corpuscular HGB Conc 34.6 g/dl (31.0-35.0); Mean Corpuscular Hemoglobin 31.8 pg (27.0-33.0); Mean Corpuscular Volume 91.8 fL (80.0-98.0); Mean Platelet Volume 9.6 fL (9.4-12.3); Monocytes Absolute Auto 0.5 X10*3/uL (0.1-1.2); Monocytes Percent Auto 8.3 % (2-11); Neutrophils Absolute Auto 3.1 x10*3/uL (2.0-8.3); Neutrophils Percent Auto 51.3 % (45-73); Platelet Count 284 X10*3/uL (160-400); Red Blood Count 4.25 X10*6/uL (4.20-5.50); Red Cell Distribution Width 13.2 % (11.0-16.0); White Blood Count 6.1 X10*3/uL (4.8-10.8)
[2024-11-29 07:57] LABS: Estimated Average Glucose 108 mg/dL; Hemoglobin A1C 122.7076 umol/L; Hemoglobin A1c % 5.4 % (<6.0); Total Hemoglobin (HGBA1C) 3486.7427 umol/L
[2024-11-29 08:04] LABS: Appearance Urine Clear; Color Urine Yellow; Glucose Urine UA Negative (Negative); Leukocyte Esterase Urine Negative (Negative); Nitrite Urine Negative (Negative); Urine Blood Negative (Negative); Urine Ketones Negative (Negative); Urine Protein Negative (Neg-Trace)
[2024-11-29 08:16] LABS: Alanine Aminotransferase 28 U/L (0-31); Alkaline Phosphatase 72 U/L (39-117); Anion Gap 11 (12-20); Aspartate Amino Transferase 31 U/L (5-31); Bilirubin Total 0.4 mg/dL (0.0-1.0); Blood Urea Nitrogen 17 mg/dL (9-16); Calcium 8.8 mg/dL (8.4-10.2); Carbon Dioxide 29 mmol/L (22-29); Chloride 106 mmol/L (96-108); Cholesterol 203 mg/dL (<200); Estimated Glomerular Filt Rate > 60; Glucose Random 92 mg/dL (60-115); HDL Cholesterol 65 mg/dL (>40); LDL Cholesterol Calculated 125 mg/dL (<100); Potassium 3.9 mmol/L (3.3-5.1); Sodium 142 mmol/L (135-145); Total Protein 6.6 g/dL (6.5-8.0); Triglycerides 68 mg/dL (<150)
[2024-11-29 08:32] LABS: Free T4 (Free Thyroxine) 1.12 ng/dL (0.71-1.85); Thyroid Stimulating Hormone 1.35 uIU/mL (0.32-4.0); Vitamin D 25-OH Total 45.5 ng/mL (>30)
[2024-11-29 08:48] LABS: Vitamin B12 999 pg/mL (200-900)
== END 2024-11-29 06:59 | disposition home or self-care (01) ==
LOC: HO.LAB 06:58
PROVIDERS: PCP Internal Medicine; Visit Provider Internal Medicine
DX: R19.7 Diarrhea, unspecified (principal); E78.00 Pure hypercholesterolemia, unspecified; R30.0 Dysuria
CPT/HCPCS: 36415; 80053; 80061; 81003; 82306; 82607; 82746; 83036; 84439; 84443; 85025

== ENCOUNTER 2024-12-07 15:37 | Outpatient (REF) | payer BC, SELFPAY ==
--- OUTSIDE RECORDS SUMMARY | 2024-12-07 15:39 | XMS_ITS | Patient Health Record ---
Author Organization [facility] Address [address] [place] [address] Care Team Providers Care Family Practitioner Name Role Phone Cipriano Frost MD Primary Care Provider Randell Stern Jr [phone] Allergies Allergen (clinical drug ingredient) Drug/Non Drug Allergy documented on EMR Reaction Allergy Type Onset Date Status cats (uncoded) Unknown Allergy Activ e cat scan dye (uncoded) Unknown Allergy Active Results Component Value Reference Range Notes MR abdomen wo/w con Reviewed date:03/14/2024 07:58:34 AM Interpretation: Performing Lab: Notes/Report: [address] [address] Magnetic Resonance Report Signed Patient: Desire Boyle MR#: [id number] 6 : 1965 Acct:[id number] Age/Sex: 59 / F ADM Date: 02/29/24 Loc: HO.MRI Attending Dr: Randell Forrester MD Ordering Physician: Randell Forrester MD Date of Service: 02/29/24 Procedure(s): MR abdomen wo/w con Accession Number(s): [id number] cc: Randell Forrester MD; Cipriano Frost MD [...] 03/09/24 1131 DD/ 0820 TD/TT: 02/29/24 0855 Principal Systems Engineer: Reason For Referral Referring Provider First Name Cipriano Referring Provider Last Name Santosh Referring Provider Speciality Internal M edicine Referred Organization [facility] Referred Provider Randell Forrester Jr Referred Address [address] [place] [phone], Referred Provider Specialty Gastroentero logy General Notes Blanche Qureshi 024 01:16:21 PM EDT > requested an o blue referral from Dr. Frost's office for visit with Dr. Forrester on 02-08-2024 Referral Priority Routine Medications Medication SIG (Take, Route, Frequency, Duration) Notes Start Date End Date Status Turmeric 500 MG as directed Orally Active Estradiol 0.0375 MG/24HR 1 patch to skin Transdermal Two times a Week Active Creatine 5000 MG as directed Orally Active Doxycycline Hyclate 20 MG Oral for 90 Active LORazepam 0.5 MG Oral for 30 as needed A ctive Dicyclomine HCl 20 MG 1 tablet Orally Th ree times a day for 30 days 11/30/2024 Active BCAA Active Vitamin D Active Magnesium Active Calcium Active Multivitamin Active Immunizations Vaccine Route Administration Date Status Comme nts Influenza Unknown 03/18/2022 Administered Influenza Unknown 04/05/2023 Administered Influenza Unknown 04/03/2024 Administered Social History Tobacco Use: Social History [...] Problem Status W/U Status Risk Notes Problem [id number] Colon cancer screening (Z12.11) Active confirmed Problem Diarrhea (R19.7) Active confirmed Problem 595232364 Encounter for other preprocedural examination (Z01.818) Active confirmed Problem 72860916 Pancreatic cyst (K86.2) Active confirmed Vital Signs Temperature 97.9 degrees Fahrenheit 11/30/2024 Blood pressure diastolic 01 mm Hg 11/30/2024 Height 63 in 11/30/2024 Blood pressure systolic 001 mm Hg 11/30/2024 Weight 163 lbs 11/30/2024 BMI 28.87 kg/m2 11/30/2024 Encounters Encounter Location Date Provider Diagnosis [facility] [address] [place] [phone] 01/02/2024 Randell Forrester Jr Pancreatic cyst K86.2 and Colon cancer screening Z12.11 [facility] [address] [place] [phone] 11/30/2024 Randell Forrester Jr Pancreatic cyst K86.2 and Diarrhea R19.7 [facility] [address] [place] [phone] 03/06/2024 Randell Forrester Jr Assessments Encounter Date [...] us in the office in one year. 11/30/2024 Diarrhea (ICD-10 - R19.7) We discussed pancreatic cysts today. We discussed follow-up MRI imaging. This will be arranged for February. The cause of her diarrhea is not clear. We prescribed dicyclomine for cramping. She will return stool tests as directed by her PCP. Laboratory studies are reviewed if she has persistent symptoms and they do not respond to antidiarrheal and antispasmodic therapy we will arrange colonoscopy. We discussed this today. 11/30/2024 Pancreatic cyst (ICD-10 - K86.2) We discussed pancreatic cysts today. We discussed follow-up MRI imaging. This will be arranged for February. The cause of her diarrhea is not clear. We prescribed dicyclomine for cramping. She will return stool tests as directed by her PCP. Laboratory studies are reviewed if she has persistent symptoms and they do not respond to antidiarrheal and antispasmodic therapy we will arrange colonoscopy. We discussed this today. Plan Of Treatment Pending Test Test Name Order Date MRI ABD W&WO CONTRAST 01/02/2024 MRI ABD W&WO CONTRAST 11/30/2024 Future Test Test Name Order Date COLONOSCOPY 09/23/2022 Next Appt Details Provider Name:Randell dennis Jr, 12/02/2025 10:20:00 AM, [address] [place] [address], [address], [place], [address], Insurance Providers Payer Name Payer Address Payer Phone Subscriber Number Group Number Insured Name Patient Relationship to Insured Coverage Start Date Coverage End Date [facility] PROFESSIONAL CLAIMS [address] [place] [address] [id number] 500 DESIRE BOYLE Self - patient is the insured Medical (General) History Medical History History ICD Code Rosacea Anxiety Elevated BMI Colonoscopy 11/02, normal, ten-year follo wup Pancreatic cyst, MRI 03/06, 4 mm cyst in tail of the pancreas 1 year imaging follow-up. Surgical History Surgery Date(Month/Year) Left breast lumpectomy partial hysterectomy cholecystectomy section elbow shoulder surgeriesx3 Laparoscopic sleeves gastrectomy 07/02 Umbilical hernia repair 07/04 Panniculectomy 07/04
[2024-12-07 16:37] LABS: CDiff Gene PCR NEGATIVE (Negative)
[2024-12-07 17:18] LABS: Leukocytes Stool Qualitative NEGATIVE (NEGATIVE)
== END 2024-12-07 15:38 | disposition home or self-care (01) ==
LOC: HO.LNP 15:37
PROVIDERS: Visit Provider Internal Medicine
DX: R19.7 Diarrhea, unspecified (principal)
CPT/HCPCS: 87177; 87209; 87493; 89055

== ENCOUNTER 2025-02-04 14:34 | Outpatient (AMB) | payer BC, SELFPAY ==
--- OUTSIDE RECORDS SUMMARY | 2024-02-08 07:40 | XMS_ITS ---
Author Organization [facility] Address [address] [facility] [facility] [address] [place] [address] Care Team Providers Care Store Grocery Merchandiser Name Role Phone Cipriano Frost MD Primary Care Provider Randell Stern Jr [phone] REASON FOR VISIT Patient presents today for a pancreatic cyst. Encounters Encounter Location Date Provider Diagnosis [facility] [address] [facility] [facility] [address] [place] [address] 02/08/2024 Randell Forrester Jr Plan Of Treatment Next Appt Details Provider Name:Randell dennis Jr, 12/02/2025 10:20:00 AM, [address] [facility], [address], [place], [address], Progress Notes * DESIRE BOYLE SDOB:[birth year] (60 yo F)Acc No.[id number]:02/08/2024 Progress Notes Patient: DESIRE KEITH Provider: Rolanda Forrester MD :1965 A ge:59 Y S ex:Female Date:02/08/2024 Address: [address] [id number] Pcp:Cipriano Frost MD Subjective: * Chief Complaints: * 1 . Patient presents today for a pancreatic cyst. . * Medical History: Objective: * Vitals: Assessment: Plan: * Treatment: * * The named appointment provid er may or may not be the originator of this progress note, and it is not deemed complete until electronically signed by the appointment provider. Sign off status: Pending * Provider: Rolanda Forrester MD Date: 0 02/08/2024 Generated for Radha babcock/Usama/Leigh Ann on: 02/04/2025 04:20 PM EDT
--- OUTSIDE RECORDS SUMMARY | 2025-01-02 05:00 | XMS_ITS ---
Author Organization [facility] Address [address] [facility] [address] [place] [address] Care Team Providers Care Cut Out Stitcher Name Role Phone Cipriano Frost MD Primary Care Provider Randell Stern Jr [phone] REASON FOR VISIT pancreatic cyst Encounters Encounter Location Date Provider Diagnosis [facility] [address] [facility] [address] [place] [phone] 01/02/2025 Randell Forrester Jr Plan Of Treatment Next Appt Details Provider Name:Randell dennis Jr, 12/02/2025 10:20:00 AM, [address] [facility], [address], [place], [address], Progress Notes * DESIRE BOYLE SDOB:[birth year] (60 yo F)Acc No.[id number]:01/02/2025 Progress Notes Patient: DESIRE KEITH Provider: Rolanda Forrester MD :1965 A ge:59 Y S ex:Female Date:01/02/2025 Address: [address] [place] Pcp:Cipriano Frost MD Subjective: * Chief Complaints: [...] Generated for Radha babcock/Usama/Leigh Ann on: 0 02/04/2025 04:21 PM EDT
[2025-02-04 15:06] VITALS: BP 133/67; PULSE 58; TEMP 37; O2SAT 95; BMI 29.1
--- NOTE | 2025-02-04 15:06 | A.OFFVIS_ITS ---
VS Expanded 02/04/25 15:06 BP 133/67 Blood Pressure Location Lt brachial Blood Pressure Position Sitting Pulse 58 Pulse Source Pulse Oximeter Temp 98.6 F Temperature Source Temporal Artery Scan Pulse Oximetry 95 Oxygen Delivery Method Room Air Height 5 ft 3 in Weight 164 lb 3.2 oz BMI 29.1 Body Fat % 39.4 Body Fat Mass 64.6 Fat Free Mass 99.4 Visceral Fat Rating 9 Body Water % 42.9 Body Water Mass 70.4 Muscle Mass/Score 94.4 Basal Metabolic Rate/Score 1,369 Intake Visit Reasons: (OV) PO LSG 02/05/20 Allergies Iodinated Contrast Media (IV CONTRAST) Allergy (Severe, Verified 02/04/25 15:11) DIFF BREATHING/HIVES Contrast Allergy PreMed Pack Allergy (Mild, Uncoded 11/27/24 14:16) hives STATINS Adverse Reaction (Severe, Uncoded 11/27/24 14:16) myalgias HPI Comments Details: The patient is a pleasant 58-year-old female who returns to the office today. She is approximately 5 years post sleeve gastrectomy performed on 02/05/2020. Weight today is 164.2 lb with a BMI of 29.1. She states that she had a period of time where her weight went up to approximately 160 lb. She has since changed her approach to include daily exercise. She has joined a rowing group. She states that she is waiting to get an appointment with gynaecological oncologist as she is concerned about menopause and brain fog. Also co incr aches and pains A complaint that she has is of the excess skin of her upper arms. She states that she needs to wear specialized compressive clothing when she runs. 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 She has trained and completed half iron man contest and needed to wear specialized garments for her arms as she gets chafing between her arms and her axilla area from the rubbing of excess skin. She does not have a rash currently, this occurs much more commonly during the warm months and with increased activity. She states that she is being held back exercising and especially running due to her arm discomfort and rash. Rash occurs 2-3 x per month improving with Rx antifungal with recurrance. Since last being seen, she was away on vacation, got sick afterwards and is now recovered. She has been following up with an outpatient credit product analyst. She is satisfied with her nutrition plan however needs to make better food choices. She continues to exercise vigorously. Doing: protein overnight oats w fairlife milk celebrate rebuild 2 scoops or Nuri protein shake 30 gm per shake egg bites snack or japanese yogurt built bar meal 4 oz protein and 4 oz veg yasso frozen yogurt bar drinking 96 oz water exercise: daily. rowing, elliptical, bike [id number] jerad per week PFSH Medical History (Updated 11/27/24 @ 14:45 by Cipriano Frost MD) Colon cancer screening Bilateral renal cysts Breast cancer screening by mammogram Pre-op testing Rosacea Panniculitis Breast asymmetry following reconstructive surgery Adopted Intestinal malabsorption following gastrectomy Migraine Anxiety Eczema Surgical History Hx of varicose vein ligation History of hernia surgery Status post panniculectomy Bariatric surgery status Hx of knee surgery S/P laparoscopic sleeve gastrectomy Hx of section (2003) Hx of laparoscopic gastric banding Hx of umbilical hernia repair (2005) S/P TORIBIO (total abdominal hysterectomy) Hx laparoscopic cholecystectomy (2003) H/O elbow surgery H/O shoulder surgery Family History Father No problems noted. Mother No problems noted. Brother No problems noted. Brother No problems noted. Brother No problems noted. Daughter No problems noted. Daughter No problems noted. 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 Cognitive needs: No Hearing needs: No Vision needs: Yes (Glasses) Physical Exam Vital Signs: Last Vital Signs Temp 98.6 F 02/04/25 15:06 Pulse 58 02/04/25 15:06 BP 133/67 02/04/25 15:06 Pulse Ox 95 02/04/25 15:06 Oxygen Delivery Method Room Air 02/04/25 15:06 BMI result Body Mass Index 29.1 Const General: healthy appearing and no acute distress Resp Effort & Inspection: normal respiratory effort Auscultation: clear to auscultation bilaterally Cardio Rate: regular rate Rhythm: regular rhythm GI Auscultation: normal bowel sounds Extrem General: Yes normal to inspection Assessment & Plan Assessment & Plan (1) S/P laparoscopic sleeve gastrectomy: Comment: January 2020 Dr. Watters Code(s): Z98.84 - Bariatric surgery status Category: Surgical Plan: Patient continues to seek advice regarding her meal plan from outside dietitian. She does state that she has had dietary indiscretions although when she follows her recommended meal plan she feels good. She continues to exercise appr opriately. She will follow up in the office in 6 months. She had labs done by her outside primary care provider 2 months ago. We will supplement checking vitamin levels. Any recommendations based upon results. Orders: Orders Vitamin A Today K91.2 - Postsurgical malabsorption, not elsewhere classified, Z90.3 - Acquired absence of stomach [part of], Z98.84 - Bariatric surgery status Vitamin B1 Today K91.2 - Postsurgical malabsorption, not elsewhere classified, Z90.3 - Acquired absence of stomach [part of], Z98.84 - Bariatric surgery status Zinc Today K91.2 - Postsurgical malabsorption, not elsewhere classified, Z90.3 - Acquired absence of stomach [part of], Z98.84 - Bariatric surgery status IRON PROFILE Today K91.2 - Postsurgical malabsorption, not elsewhere classified, Z90.3 - Acquired absence of stomach [part of], Z98.84 - Bariatric surgery status
--- OUTSIDE RECORDS SUMMARY | 2025-02-04 16:21 | XMS_ITS | Patient Health Record ---
Author Organization [facility] Address [address] [place] [address] Care Team Providers Care Microcomputer Support Specialist Name Role Phone Cipriano Frost MD Primary Care Provider Randell Stern Jr Allergies Allergen (clinical drug ingredient) Drug/Non Drug Allergy documented on EMR Reaction Allergy Type Onset Date Status cats (uncoded) Unknown Allergy Activ e cat scan dye (uncoded) Unknown Allergy Active Results Component Value Reference Range Notes MR abdomen wo/w con Reviewed date:03/14/2024 07:58:34 AM Interpretation: Performing Lab: Notes/Report: [address] [address] Magnetic Resonance Report Signed Patient: Desire Boyle MR#: [id number] 6 : 1965 Acct:[id number] Age/Sex: 59 / F ADM Date: 02/29/24 Loc: HO.MRI Attending Dr: Randell Forrester MD Ordering Physician: Randell Forrester MD Date of Service: 02/29/24 Procedure(s): MR abdomen wo/w con Accession Number(s): [id number] cc: Randell Forrester MD; Cipriano Frost MD [...] 03/09/24 1131 DD/ 0820 TD/TT: 02/29/24 0855 Pet Caregiver: Reason For Referral No Information Medications Medication SIG (Take, Route, Frequency, Duration) [...] Problem Status W/U Status Risk Notes Problem 467277016 Colon cancer screening (Z12.11) Active confirmed Problem Diarrhea (R19.7) Active confirmed Problem 733395011 Encounter for other preprocedural examination (Z01.818) Active confirmed Problem 56538771 Pancreatic cyst (K86.2) Active confirmed Vital Signs Temperature 97.9 degrees Fahrenheit 11/30/2024 Blood pressure diastolic 01 mm Hg 11/30/2024 Height 63 in 11/30/2024 Blood pressure systolic 001 mm Hg 11/30/2024 Weight 163 lbs 11/30/2024 BMI 28.87 kg/m2 11/30/2024 Encounters Encounter Location Date Provider Diagnosis [facility] [address] [place] [phone] 11/30/2024 Randell Forrester Jr Pancreatic cyst K86.2 and Diarrhea R19.7 [facility] [address] [place] [phone] 03/06/2024 Randell Forrester Jr Assessments Encounter Date Diagnosis (ICD Code) Assessment Notes Treatment Notes Treatment Clinical Notes Section Notes 11/30/2024 Diarrhea (ICD-10 - R19.7) We discussed [...] COLONOSCOPY 09/23/2022 Next Appt Details Provider Name:Randell Tamiko dennis Jr, 12/02/2025 10:20:00 AM, [address] [place] [address], [address], [place], [address], Insurance Providers Payer Name Payer Address Payer Phone Subscriber Number Group Number Insured Name Patient Relationship to Insured Coverage Start Date Coverage End Date [facility] [id number] PROFESSIONAL CLAIMS [address] [place] [address] [id number] 500 DESIRE BOYLE Self - patient is [...]
== END 2025-02-04 15:35 | disposition home or self-care (01) ==
LOC: HO.HBS 14:38
PROVIDERS: PCP Internal Medicine; Visit Provider Physician Assistant Surgical
DX: E66.3 Overweight (principal); Z68.29 Body mass index [BMI] 29.0-29.9, adult; Z90.3 Acquired absence of stomach [part of]; Z98.84 Bariatric surgery status
CPT/HCPCS: 99213

== ENCOUNTER 2025-02-06 06:43 | Outpatient (REF) | payer BC, SELFPAY ==
--- OUTSIDE RECORDS SUMMARY | 2024-02-08 07:40 | XMS_ITS ---
Author Organization [facility] Address [address] [facility] [address] [place] [address] Care Team Providers Care Tuckpointer Name Role Phone Cipriano Frost MD Primary Care Provider Randell Stern Jr [phone] REASON FOR VISIT Patient presents today for a pancreatic cyst. Encounters Encounter Location Date Provider Diagnosis [facility] [address] [facility] [address] [place] [address] 02/08/2024 Randell Forrester Jr Plan Of Treatment Next Appt Details Provider Name:Randell dennis Jr, 12/02/2025 10:20:00 AM, [address] [facility], [address], [place], [address], Progress Notes * DESIRE BOYLE SDOB:[birth year] (60 yo F)Acc No.[id number]:02/08/2024 Progress Notes Patient: DESIRE KEITH Provider: Rolanda Forrester MD :1965 A ge:59 Y S ex:Female Date:02/08/2024 Address: [address] [id number] Pcp:Cipriano Frost MD Subjective: * Chief Complaints: [...] 02/08/2024 Generated for Radha babcock/Usama/Leigh Ann on: 02/06/2025 06:46 AM EDT
--- OUTSIDE RECORDS SUMMARY | 2025-01-02 05:00 | XMS_ITS ---
Author Organization [facility] Address [address] [facility] [address] [place] [phone] Care Team Providers Care Primary Montessori Teacher Name Role Phone Cipriano Frost MD Primary Care Provider Randell Stern Jr REASON FOR VISIT pancreatic cyst Encounters Encounter Location Date Provider Diagnosis [facility] [address] [facility] [address] [place] [phone] 01/02/2025 Randell Forrester Jr Plan Of Treatment Next Appt Details Provider Name:Randell dennis Jr, 12/02/2025 10:20:00 AM, [address] [facility], [address], [place], [address], Progress Notes * DESIRE BOYLE SDOB:[birth year] (60 yo F)Acc No.[id number]:01/02/2025 Progress Notes Patient: DESIRE KEITH Provider: Rolanda Forrester MD :1965 A ge:59 Y S ex:Female Date:01/02/2025 Address: [address] [place] Pcp:Cipriano Frost MD Subjective: * Chief Complaints: [...] * Provider: Rolanda Forrester MD Date: 0 01/02/2025 Generated for Radha babcock/Usama/Xiomaraitting on: 0 02/06/2025 06:46 AM EDT
--- OUTSIDE RECORDS SUMMARY | 2025-02-06 06:46 | XMS_ITS | Patient Health Record ---
Author Organization [facility] Address [address] [place] [address] Care Team Providers Care Wardrobe Stylist Name Role Phone Cipriano Frost MD Primary Care Provider Randell Stern Jr [phone] Allergies Allergen (clinical drug ingredient) Drug/Non Drug Allergy documented on EMR Reaction Allergy Type Onset Date Status cats (uncoded) Unknown Allergy Activ e cat scan dye (uncoded) Unknown Allergy Active Results Component Value Reference Range Notes MR abdomen wo/w con Reviewed date:03/14/2024 07:58:34 AM Interpretation: Performing Lab: Notes/Report: [address] [address] Magnetic Resonance Report Signed Patient: Desire Boyle MR#: [id number] 6 : 1965 Acct:[id number] Age/Sex: 59 / F ADM Date: 02/29/24 Loc: HO.MRI Attending Dr: Randell Forrester MD Ordering Physician: Randell Forrester MD Date of Service: 02/29/24 Procedure(s): MR abdomen wo/w con Accession Number(s): [id number] cc: Randell Forrester MD; Cipriano Frost MD [...] 03/09/24 1131 DD/ 0820 TD/TT: 02/29/24 0855 Adding Machine Servicer: Reason For Referral No Information Medications Medication [...] Problem Status W/U Status Risk Notes Problem 669337355 Colon cancer screening (Z12.11) Active confirmed Problem Diarrhea (R19.7) Active confirmed Problem 006989867 Encounter for other preprocedural examination (Z01.818) Active confirmed Problem 69879879 Pancreatic cyst (K86.2) Active confirmed Vital Signs Temperature 97.9 degrees Fahrenheit 11/30/2024 Blood pressure diastolic 01 mm Hg 11/30/2024 Height 63 in 11/30/2024 Blood pressure systolic 001 mm Hg 11/30/2024 Weight 163 lbs 11/30/2024 BMI 28.87 kg/m2 11/30/2024 Encounters Encounter Location Date Provider Diagnosis [facility] [address] [place] [phone] 11/30/2024 Randell Forrester Jr Pancreatic cyst K86.2 and Diarrhea R19.7 [facility] [address] [place] [phone] 03/06/2024 Randell Forrester Jr Assessments Encounter Date [...] Name:Randell Tamiko dennis Jr, 12/02/2025 10:20:00 AM, [address] [place] [address], [address], [place], [address], Insurance Providers Payer Name Payer Address Payer Phone Subscriber Number Group Number Insured Name Patient Relationship to Insured Coverage Start Date Coverage End Date [facility] [place] PROFESSIONAL [place]S [address] [place] [address] [id number] 500 DESIRE BOYLE Self - patient is [...]
[2025-02-06 08:22] LABS: Iron 86 mcg/dL (30-160); Percent Iron Saturation 30 % (15-50); Total Iron Binding Capacity 282 mcg/dL (228-428); Unsaturated Iron Binding 196 ug/dL
== END 2025-02-06 06:44 | disposition home or self-care (01) ==
LOC: HO.LAB 06:43
PROVIDERS: PCP Internal Medicine; Visit Provider Physician Assistant Surgical
DX: K91.2 Postsurgical malabsorption, not elsewhere classified (principal); Z94.84 Stem cells transplant status; Z90.3 Acquired absence of stomach [part of]
CPT/HCPCS: 36415; 83540; 84425; 84590; 84630

== ENCOUNTER 2025-02-25 10:48 | Outpatient (REF) | payer BC, SELFPAY ==
--- OUTSIDE RECORDS SUMMARY | 2024-01-19 09:35 | XMS_ITS ---
Author Organization [facility] Address [address] [facility] [address] [place] [address] Care Team Providers Care Treater Name Role Phone Cipriano Frost MD Primary Care Provider Randell Stern Jr REASON FOR VISIT pancreatic cyst Encounters Encounter Location Date Provider Diagnosis [facility] [address] [facility] [address] [place] [address] 01/19/2024 Randell Forrester Jr Plan Of Treatment Next Appt Details Provider Name:Randell dennis Jr, 12/02/2025 10:20:00 AM, [address] [facility], [address], [place], [address], Progress Notes * DESIRE BOYLE SDOB:[birth year] (60 yo F)Acc No.[id number]:01/19/2024 Progress Notes Patient: DESIRE KEITH Provider: Rolanda Forrester MD :1965 A ge:58 Y S ex:Female Date:01/19/2024 Address: [address] [place] [id number] Pcp:Cipriano Frost MD Subjective: * Chief Complaints: * 1 . Pancreatic cyst. * Medical History: Objective: * Vitals: Assessment: Plan: * Treatment: * * The named appointment provid er may or may not be the originator of this progress note, and it is not deemed complete until electronically signed by the appointment provider. Sign off status: Pending * Provider: Rolanda Forrester MD Date: 0 01/19/2024 Generated for Radha babcock/Usama/Leigh Ann on: 0 02/25/2025 02:25 PM EDT
--- OUTSIDE RECORDS SUMMARY | 2024-02-08 07:40 | XMS_ITS ---
Author Organization [facility] Address [address] [facility] [address] [place] [address] Care Team Providers Care Crossing Supervisor Name Role Phone Cipriano Frost MD Primary Care Provider Randell Stern Jr [phone] REASON FOR VISIT Patient presents today for a pancreatic cyst. Encounters Encounter Location Date Provider Diagnosis [facility] [address] [facility] [address] [place] [address] 02/08/2024 Randell Forrester Jr Plan Of Treatment Next Appt Details Provider Name:Randell dennis Jr, 12/02/2025 10:20:00 AM, [address] [facility], [address], [place], [address], Progress Notes * DESIRE BOYLE SDOB:[birth year] (60 yo F)Acc No.[id number]:02/08/2024 Progress Notes Patient: DESIRE KEITH Provider: Rolanda Forrester MD :1965 A ge:59 Y S ex:Female Date:02/08/2024 Address: [id number] Pcp:Cipriano Frost MD Subjective: * Chief Complaints: [...] 02/08/2024 Generated for Radha babcock/Usama/Leigh Ann on: 0 02/25/2025 02:25 PM EDT
--- OUTSIDE RECORDS SUMMARY | 2025-01-02 05:00 | XMS_ITS ---
Author Organization [facility] Address [address] [facility] [address] [place] [address] Care Team Providers Care Commercial Real Estate Agent Name Role Phone Cipriano Frost MD Primary Care Provider Randell Stern Jr [phone] REASON FOR VISIT pancreatic cyst Encounters Encounter Location Date Provider Diagnosis [facility] [address] [facility] [address] [place] [phone] 01/02/2025 Randell Forrester Jr Plan Of Treatment Next Appt Details Provider Name:Randell dennis Jr, 12/02/2025 10:20:00 AM, [address] [facility], [address], [place], [address], Progress Notes * DESIRE BOYLE SDOB:[birth year] (60 yo F)Acc No.[id number]:01/02/2025 Progress Notes Patient: DESIRE KEITH Provider: Rolanda Forrester MD :1965 A ge:59 Y S ex:Female Date:01/02/2025 Address: [address] [place] Pcp:Cipriano Frost MD Subjective: * Chief Complaints: * 1 . Pancreatic cyst. * Medical History: Objective: * Vitals: Assessment: Plan: * Treatment: * * The named appointment provid er may or may not be the originator of this progress note, and it is not deemed complete until electronically signed by the appointment provider. Sign off status: Pending * Provider: Roalnda Forrester MD Date: 0 01/02/2025 Generated for Radha babcock/Usama/Leigh Ann on: 0 02/25/2025 02:25 PM EDT
--- NOTE | ~2025-02-25 | MR_ITS ---
EXAMINATION: MR ABDOMEN WITHOUT THEN WITH IV CONTRAST HISTORY: CYST OF PANCREAS, F/U COMPARISON: Comparison is made with the prior examination dated 02/29/2024. TECHNIQUE: Axial in and out of phase T1-weighted gradient echo, axial diffusion weighted, and axial and coronal HASTE T2 with fat saturation images were obtained through the abdomen. Subsequently, fat suppressed axial and coronal T1-weighted images were obtained after the intravenous administration of 7.5 mL Gadavist. FINDINGS: Liver: There is no loss of signal intensity in the liver on opposed phase imaging to suggest steatosis. There is no enhancing liver mass. The hepatic and portal veins are patent. There is no intrahepatic biliary dilatation. Gallbladder/biliary tree: The gallbladder is surgically absent. The common bile duct is normal in caliber. No intraluminal filling defects are identified to suggest choledocholithiasis. Spleen: The spleen is unremarkable. Pancreas: Again seen is a 3-4 mm cyst in the pancreatic tail without associated abnormal enhancement. There is no enhancing pancreatic mass. The pancreatic duct is normal in caliber. Adrenals: The adrenal glands are unremarkable. Kidneys: There are bilateral renal cysts, the largest of which is at the lower pole of the right kidney measuring 9 mm in size. There is no hydronephrosis. Lymph nodes: There is no retroperitoneal lymphadenopathy in the upper abdomen. Fluid: There is no ascites in the upper abdomen. Visualized bowel: The visualized small and large bowel loops are unremarkable in appearance. Visualized bones: The visualized bones demonstrate normal marrow signal intensity. Additional findings: There is a 3.0 x 2.1 cm cystic lesion in the right adnexa. MR/MR abdomen wo/w con IMPRESSION: 1. Stable 3-4 mm cyst in the pancreatic tail. 2. 3.0 x 2.1 cm cystic lesion in the right adnexa. Further evaluation with pelvic ultrasound is recommended. Electronically signed by: Toni Hunter MD 02/25/2025 11:58 AM EDT
--- OUTSIDE RECORDS SUMMARY | 2025-02-25 14:25 | XMS_ITS | Patient Health Record ---
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 Name Role Phone Cipriano Frost MD Primary Care Provider Chastity e Randell Forrester Jr Allergies Allergen (clinical drug ingredient) Drug/Non Drug Allergy documented on EMR Reaction Allergy Type Onset Date Status cats (uncoded) Unknown Allergy Activ e cat scan dye (uncoded) Unknown Allergy Active Results Component Value Reference Range Notes MR abdomen wo/w con Reviewed date:03/14/2024 07:58:34 AM Interpretation: Performing Lab: Notes/Report: [address] [address] Magnetic Resonance Report Signed Patient: Desire Boyle MR#: [id number] 6 : 1965 Acct:[id number] Age/Sex: 59 / F ADM Date: 02/29/24 Loc: HO.MRI Attending Dr: Randell Forrester MD Ordering Physician: Randell Forrester MD Date of Service: 02/29/24 Procedure(s): MR abdomen wo/w con Accession Number(s): [id number] cc: Randell Forrester MD; Cipriano Frost MD [...] 03/09/24 1131 DD/ 0820 TD/TT: 02/29/24 0855 [employer]: MR abdomen wo/w con (Not ye t reviewed by provider) Interpretation: Performing Lab: Notes/Report: [address] [address] Magnetic Resonance Report Signed Patient: Desire Boyle MR#: [id number] 6 : 1965 Acct:[id number] Age/Sex: 60 / F ADM Date: 02/25/25 Loc: HO.MRI Attending Dr: Randell Forrester MD Ordering Physician: Randell Forrester MD Date of Service: 02/25/25 Procedure(s): MR abdomen wo/w con Accession Number(s): [id number] cc: Randell Forrester MD; Cipriano Frost MD Reason for Exam: CYST OF PANCREAS, F/U EXAMINATION: MR ABDOMEN WITHOUT THEN WITH IV CONTRAST HISTORY: CYST OF PANCREAS, F/U COMPARISON: Comparison is made with the prior examination dated 02/29/2024. TECHNIQUE: Axial in and out of phase T1-weighted gradient echo, axial diffusion weighted, and axial and coronal HASTE T2 with fat saturation images were obtained through the abdomen. Subsequently, fat suppressed axial and coronal T1-weighted images were obtained after the intravenous administration of 7.5 mL Gadavist. FINDINGS: Liver: There is no loss of signal intensity in the liver on opposed phase imaging to suggest steatosis. There is no enhancing liver mass. The hepatic and portal veins are patent. There is no intrahepatic biliary dilatation. Gallbladder/biliary tree: The gallbladder is surgically absent. The common bile duct is normal in caliber. No intraluminal filling defects are identified to suggest choledocholithiasis. Spleen: The spleen is unremarkable. Pancreas: Again seen is a 3-4 mm cyst in the pancreatic tail without associated abnormal enhancement. There is no enhancing pancreatic mass. The pancreatic duct is normal in caliber. Adrenals: The adrenal glands are unremarkable. Kidneys: There are bilateral renal cysts, the largest of which is at the lower pole of the right kidney measuring 9 mm in size. There is no hydronephrosis. Lymph nodes: There is no retroperitoneal lymphadenopathy in the upper abdomen. Fluid: There is no ascites in the upper abdomen. Visualized bowel: The visualized small and large bowel loops are unremarkable in appearance. Visualized bones: The visualized bones demonstrate normal marrow signal intensity. Additional findings: There is a 3.0 x 2.1 cm cystic lesion in the right adnexa. MR/MR abdomen wo/w con IMPRESSION: 1. Stable 3-4 mm cyst in the pancreatic tail. 2. 3.0 x 2.1 cm cystic lesion in the right adnexa. Further evaluation with pelvic ultrasound is recommended. Electronically signed by: Toni Hunter MD 02/25/2025 11:58 AM EDT Dictated By: Toni Hunter MD Signed By: <Electronically signed by Toni Hunter MD in OV> 02/25/25 1158 DD/ 1100 TD/TT: 02/25/25 1130 [employer]: Reason For Referral No Information Medications Medication [...] Problem Status W/U Status Risk Notes Problem 214852594 Colon cancer screening (Z12.11) Active confirmed Problem Diarrhea (56944654) Diarrhea (R19.7) Active confirmed Problem 609312798 Encounter for other preprocedural examination (Z01.818) Active confirmed Problem 81749295 Pancreatic cyst (K86.2) Active confirmed Vital Signs Temperature 97.9 degrees Fahrenheit 11/30/2024 Blood pressure diastolic 01 mm Hg 11/30/2024 Height 63 in 11/30/2024 Blood pressure systolic 001 mm Hg 11/30/2024 Weight 163 lbs 11/30/2024 BMI 28.87 kg/m2 11/30/2024 Encounters Encounter Location Date Provider Diagnosis [facility] [address] [place] [address] 11/30/2024 Randell Forrester Jr Pancreatic cyst K86.2 and Diarrhea R19.7 [facility] [address] [place] [address] 03/06/2024 Randellmary kay Forrester Jr Assessments Encounter Date Diagnosis (ICD [...] CONTRAST 01/02/2024 MRI ABD W&WO CONTRAST 11/30/2024 MR abdomen wo/w con 02/25/2025 Future Test Test Name Order Date COLONOSCOPY 09/23/2022 Next Appt Details Provider Name:Randell dennis Jr, 12/02/2025 10:20:00 AM, [address], [address], [place], [address], Insurance Providers Payer Name Payer Address Payer Phone Subscriber Number Group Number Insured Name Patient Relationship to Insured Coverage Start Date Coverage End Date [facility] [place] [place] [employer] [address] [place] [address] [id number] DESIRE BOYLE Self - patient is [...]
== END 2025-02-25 10:49 | disposition home or self-care (01) ==
LOC: HO.MRI 10:48
PROVIDERS: PCP Internal Medicine; Visit Provider Internal Medicine Gastroenterology
DX: K86.2 Cyst of pancreas (principal)
CPT/HCPCS: 74183; A9585

== ENCOUNTER → 2025-02-25 11:00 | Outpatient (BNV) | payer BC, SELFPAY | PROVIDERS: PCP Internal Medicine; Visit Provider Radiology Diagnostic Radiology | DX: K86.2 Cyst of pancreas (principal) | CPT/HCPCS: 74183 ==

== ENCOUNTER 2025-03-29 08:29 | Outpatient (AMB) | payer BC, SELFPAY ==
[2025-03-29 08:39] VITALS: BP 122/66; PULSE 77; TEMP 36.2; O2SAT 97; BMI 29.4
--- NOTE | 2025-03-29 08:39 | A.OFFPC_ITS ---
Vital Signs 03/29/25 08:39 Height 5 ft 3 in Blood Pressure Location Lt brachial Position Sitting Pulse Source Pulse Oximeter Oxygen Delivery Method Room Air Intake Visit Reasons: irritable bowel syndrome - see comments Supervisor Wood Room Required: No Accompanied by: Self / Same As Patient Allergies Iodinated Contrast Media (IV CONTRAST) Allergy (Severe, Verified 03/29/25 08:40) DIFF BREATHING/HIVES Contrast Allergy PreMed Pack Allergy (Mild, Uncoded 03/29/25 08:40) hives STATINS Adverse Reaction (Severe, Uncoded 03/29/25 08:40) myalgias Tobacco use date assessed: 11/27/24 Dental Screening Dental Screen Date: 11/27/24 [facility] Medical History (Updated 11/27/24 @ 14:45 by Cipriano Frost MD) Colon cancer screening Bilateral renal cysts Breast cancer screening by mammogram Pre-op testing Rosacea Panniculitis Breast asymmetry following reconstructive surgery Adopted Intestinal malabsorption following gastrectomy Migraine Anxiety Eczema Surgical History Hx of varicose vein ligation History of hernia surgery Status post panniculectomy Bariatric surgery status Hx of knee surgery S/P laparoscopic sleeve gastrectomy Hx of section (2003) Hx of laparoscopic gastric banding Hx of umbilical hernia repair (2005) S/P TORIBIO (total abdominal hysterectomy) Hx laparoscopic cholecystectomy (2003) H/O elbow surgery H/O shoulder surgery Family History Father No problems noted. Mother No problems noted. Brother No problems noted. Brother No problems noted. Brother No problems noted. Daughter No problems noted. Daughter No problems noted. 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 Cognitive needs: No Hearing needs: No Vision needs: Yes (Glasses) Questionnaire Thrive Questionnaire Date Thrive assessed: 11/27/24 I am a: Patient What is your living situation today?: I have a steady place to live Within the past 12 months, did the food you bought not last and you didn't have the money to get more?: Never true Within the past 12 months, did you worry whether your food would run out before you got money to buy more?: Never true Do you have trouble paying for medicines?: No Do you have trouble getting transportation to medical appointments?: No Do you have trouble paying your heating and electricity bill?: No Do you have trouble taking care of your child, family member or friend?: No Do you have trouble with day-to-day activities such as bathing, preparing meals, shopping, managing finances, etc.?: No Are you currently unemployed and looking for a job?: No Are you interested in more education?: No Please select the resources that you would like help with: None Currently or been in a relationship where the following occur: No concerns reported THRIVE Score: 0 TERESA-7 AMB Questionnaire TERESA-7 Date TERESA - 7 assessed: 11/27/24 Source: Developed by Drs. Toni Kay, Cande Conn, Michael Guajardo and colleagues, with an educational amado from [employer]. Physical exam (Primary Care) Tobacco/Smoking Status: Tobacco use Status Tobacco use date assessed 11/27/24 11/27/24 14:21 Patient Tobacco Use Status Never used Tobacco 11/27/24 14:15 e-Cigarette/Vaping Use Never Used 11/27/24 14:15 Thrive Assessment: Date of Thrive Assessment Date Thrive assessed 11/27/24 01/28/25 12:10 Currently or been in a relationship where the following occur: No concerns reported Coding
--- NOTE | 2025-03-29 08:39 | MHC.PC.OV ---
Vital Signs 03/29/25 08:39 Height 5 ft 3 in Weight 166 lb 2 oz BMI 29.4 BP 122/66 Blood Pressure Location Lt brachial Position Sitting Pulse 77 Pulse Source Pulse Oximeter Temp 97.1 F Temp Source Temporal Artery Scan Pulse Oximetry (%) 97 Oxygen Delivery Method Room Air Intake Visit Reasons: irritable bowel syndrome - see comments Intake Note: Patient is here to follow up on IBS. 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: Not Required per policy Accompanied by: Self / Same As Patient Allergies Iodinated Contrast Media (IV CONTRAST) Allergy (Severe, Verified 03/29/25 08:40) DIFF BREATHING/HIVES Contrast Allergy PreMed Pack Allergy (Mild, Uncoded 03/29/25 08:40) hives STATINS Adverse Reaction (Severe, Uncoded 03/29/25 08:40) myalgias Medication List - Last Reconciled 03/29/25 by Cipriano Frost MD cholestyramine (Prevalite) 4 grams PO BID estradiol 1 patch transdermal QWEEK lorazepam 0.5 mg PO DAILY PRN multivitamin (Multiple Vitamins tablet) 1 tab PO DAILY sumatriptan succinate take 1 tab at onset of headache; if no relief may repeat 1 tab after at least 2 hrs; max = 4 tabs/24 hr PO Tobacco use date assessed: 03/29/25 Dental Screening Dental Screen Date: 11/27/24 [facility] Medical History (Updated 03/29/25 @ 08:54 by Cipriano Frost MD) Colon cancer screening Bilateral renal cysts Breast cancer screening by mammogram Pre-op testing Rosacea Panniculitis Breast asymmetry following reconstructive surgery Adopted Intestinal malabsorption following gastrectomy Migraine Anxiety Eczema Surgical History Hx of varicose vein ligation History of hernia surgery Status post panniculectomy Bariatric surgery status Hx of knee surgery S/P laparoscopic sleeve gastrectomy Hx of section (2003) Hx of laparoscopic gastric banding Hx of umbilical hernia repair (2005) S/P TORIBIO (total abdominal hysterectomy) Hx laparoscopic cholecystectomy (2003) H/O elbow surgery H/O shoulder surgery Family History Father No problems noted. Mother No problems noted. Brother No problems noted. Brother No problems noted. Brother No problems noted. Daughter No problems noted. Daughter No problems noted. 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 Cognitive needs: No Hearing needs: No Vision needs: Yes (Glasses) Questionnaire Thrive Questionnaire Date Thrive assessed: 11/27/24 I am a: Patient What is your living situation today?: I have a steady place to live Within the past 12 months, did the food you bought not last and you didn't have the money to get more?: Never true Within the past 12 months, did you worry whether your food would run out before you got money to buy more?: Never true Do you have trouble paying for medicines?: No Do you have trouble getting transportation to medical appointments?: No Do you have trouble paying your heating and electricity bill?: No Do you have trouble taking care of your child, family member or friend?: No Do you have trouble with day-to-day activities such as bathing, preparing meals, shopping, managing finances, etc.?: No Are you currently unemployed and looking for a job?: No Are you interested in more education?: No Please select the resources that you would like help with: None Currently or been in a relationship where the following occur: No concerns reported THRIVE Score: 0 TERESA-7 AMB Questionnaire TERESA-7 Date TERESA - 7 assessed: 11/27/24 Source: Developed by Drs. Toni Kay, Cande Conn, Michael Guajardo and colleagues, with an educational amado from [employer]. Physical exam (Primary Care) Vital Signs: Last Vital Signs Temp 97.1 F 03/29/25 08:39 Pulse 77 03/29/25 08:39 BP 122/66 03/29/25 08:39 Pulse Ox 97 03/29/25 08:39 Oxygen Delivery Method Room Air 03/29/25 08:39 BMI result Body Mass Index 29.4 Tobacco/Smoking Status: Tobacco use Status Tobacco use date assessed 03/29/25 03/29/25 08:45 Patient Tobacco Use Status Never used Tobacco 03/29/25 08:40 e-Cigarette/Vaping Use Never Used 03/29/25 08:40 Thrive Assessment: Date of Thrive Assessment Date Thrive assessed 11/27/24 03/29/25 08:40 Currently or been in a relationship where the following occur: No concerns reported Const General: alert; No acute distress Eyes Conjunctivae: conjunctivae normal Resp Auscultation: clear to auscultation bilaterally Cardio Rate: regular rate Rhythm: regular rhythm GI Inspection: Yes normal to inspection Extrem General: Yes normal to inspection and No edema Office Procedures Flu Questionnaire Does the patient have a severe egg allergy?: No Does the patient have severe life threatening allergies?: No Does the patient have a fever or illness today?: No Has the patient ever had Guillain-Benton Syndrome?: No Has the patient ever had any past reaction to a flu shot?: No Immunizations Fluarix [id number] (PF) 45 mcg (15 mcg x 3)/0.5 mL IM syringe Performing Provider: Cipriano Frost MD [place] [facility] [place] [facility] Administered by: Kate Toure CMA on 03/29/25 09:04 Dose Route Admin Location Dispensed Lot Number Expiration Date NDC Gis Coordinator 0.5 mL IM Left Deltoid 0.5 mL [id number] 12/10/25 85661-923-15 [employer] VIS Given Date VIS Provided VIS Publication Date 03/29/25 Single Vaccine 24 Eligibility Eligibility Date Funding Source Not [facility] Eligible 03/29/25 Private Coding Level of Care Code Est Pt Level 4 (07411) Complex EM visit Add On G2211 Diagnoses S/P laparoscopic sleeve gastrectomy Z98.84 Overweight (BMI 25.0-29.9) E66.3 GERD (gastroesophageal reflux disease) K21.9 Pancreatic cyst K86.2 Adnexal cyst N94.9 Assessment & Plan Assessment & Plan (1) S/P laparoscopic sleeve gastrectomy: Comment: January 2020 Dr. Watters Code(s): Z98.84 - Bariatric surgery status Category: Surgical Plan: Continue to follow-up with bariatric (2) Overweight (BMI 25.0-29.9): Code(s): E66.3 - Overweight Category: Medical Plan: Continue with diet and exercise (3) GERD (gastroesophageal reflux disease): Code(s): K21.9 - Gastro-esophageal reflux disease without esophagitis Category: Medical Plan: Avoid the foods that causes that usually spicy foods, tomato products, juices, coffee, soda and foods that your sensitive to. After eating do not lie down, allow 3-4 hours before in lie down. And keep the head of bed above 30 degrees to avoid the acid from going up. (4) Pancreatic cyst: Comment: February 2023 yearly MRI, February 2025 Code(s): K86.2 - Cyst of pancreas Category: Medical Plan: February 2025 MRI Stable 3-4 mm cyst in the pancreatic tail. 2. 3.0 x 2.1 cm cystic lesion in the right adnexa. Further evaluation with pelvic ultrasound is recommended. (5) Adnexal cyst: Code(s): N94.9 - Unspecified condition associated with female genital organs and menstrual cycle Category: Medical Plan: Will advised for an ultrasound of the pelvis Plan History of Present Illness The patient is a 60-year-old female presenting for a follow-up visit. She has a history of laparoscopic sleeve gastrectomy performed in 2019, contributing to her current overweight status. She also has gastroesophageal reflux disease (GERD) and a history of left breast intraductal papilloma diagnosed in 2019. Recent imaging identified a pancreatic cyst, with an MRI in February showing a stable 3 to 4 mm cyst in the pancreatic tail. Additionally, a 3 x 2 cm cystic lesion was noted in the right adnexa, for which an ultrasound of the pelvis was advised. The patient reports cyclical diarrhea, with episodes of solid to loose stools, and has not been using any medication for this condition. Certain foods, such as carbohydrates, exacerbate her symptoms. 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 She has not been using lorazepam recently, although it is available to her. The patient experiences neck pain, particularly in the thoracic spine, attributed to her physical activities and long days. She has not sought aged or disabled care worker but is considering it after her current commitments end. 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, experiencing stress due to busy schedule - Exercise: Engages in rowing and other physical activities - Nutrition: Avoids carbohydrates due to exacerbation of diarrhea symptoms Review of Systems - Gastrointestinal: Reports cyclical diarrhea with episodes of solid to loose stools - Musculoskeletal: Reports neck pain, particularly in the thoracic spine - Psychological: Reports anxiety related to busy schedule - Genitourinary: Denies issues with urination - Ophthalmologic: Denies vision problems, wears glasses Physical Exam - Cardiovascular: Regular heart sounds noted Results - Labs: Normal blood count, electrolytes, renal function, hemoglobin A1c, liver function, cholesterol with LDL of 125, B12, and thyroid levels - Imaging: MRI in February showed stable 3 to 4 mm pancreatic cyst and 3 x 2 cm cystic lesion in the right adnexa Plan Patient was informed and verbally consented to the use of an ambient scribe for clinic note documentation during this visit. 1. Diarrhea The patient reports cyclical diarrhea, exacerbated by carbohydrate intake. A trial of Prevalite was discussed to manage symptoms related to bile acid malabsorption post-cholecystectomy. 2. 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 Lorazepam is available but has not been used recently. 3. Neck Pain The patient reports neck pain, particularly in the thoracic spine, related to physical activities. manager primary care is being considered post-season. 4. Preventative Care Preventative measures include a mammogram in May 2024 and a colonoscopy in 2022. A flu shot was recommended, and the shingles vaccination series is pending completion. Discussion Notes During the visit, we discussed the management of the patient's cyclical diarrhea, including the potential use of Prevalite to address bile acid malabsorption. We also reviewed her anxiety management, noting that lorazepam is available but not currently in use. Preventative care measures were emphasized, including the completion of the shingles vaccination series and the administration of a flu shot. Patient Instructions - Try Prevalite for diarrhea management, mixing with water or a protein shake. - Monitor anxiety levels and use lorazepam if necessary. - Consider aged or disabled care worker for neck pain after the soccer season ends. - Schedule and receive a flu shot. - Complete the shingles vaccination series when feasible. Orders: Orders Influenza [id number] Immunization Today Z23 - Encounter for immunization Medications: New cholestyramine (Prevalite) administer w/meal; avoid other meds within 1hr before or 4-6hr after dose 4 grams PO BID 60 ea 3RF K90.89 - Other intestinal malabsorption Refilled lorazepam 0.5 mg PO DAILY PRN 30 tabs 0RF anxiety F41.9 - Anxiety disorder, unspecified
== END 2025-03-29 09:10 | disposition home or self-care (01) ==
LOC: HO.HMCH 08:29
PROVIDERS: PCP Internal Medicine; Visit Provider Internal Medicine
DX: Z98.84 Bariatric surgery status (principal); E66.3 Overweight; K21.9 Gastro-esophageal reflux disease without esophagitis; K86.2 Cyst of pancreas; N94.9 Unspecified condition associated with female genital organs and menstrual cycle; Z23 Encounter for immunization

== ENCOUNTER → 2025-03-29 08:29 | Outpatient (BNVA) | payer BC, SELFPAY | PROVIDERS: PCP Internal Medicine; Visit Provider Internal Medicine | DX: E66.3 Overweight (principal); K21.9 Gastro-esophageal reflux disease without esophagitis; K86.2 Cyst of pancreas; N94.9 Unspecified condition associated with female genital organs and menstrual cycle; R19.7 Diarrhea, unspecified; F41.9 Anxiety disorder, unspecified; M54.2 Cervicalgia; K90.89 Other intestinal malabsorption; Z23 Encounter for immunization; Z98.84 Bariatric surgery status; Z68.29 Body mass index [BMI] 29.0-29.9, adult | CPT/HCPCS: 90471; 90656 ==